=== PATIENT | male | born 1950 ===

== ENCOUNTER 2017-05-05 11:56 | Inpatient (IN) | payer MEDICARE, OTHER ==
[2017-05-05 16:38] VITALS: BMI 20.7
--- NOTE | 2017-05-05 18:10 | CP.PCM.HP ---
History of Present Illness - History of Present Illness History of Present Illness: this is a 67-year-old male with past medical history of prior CVA, 2 brain masses currently treated with chemotherapy status post right posterior parietal craniotomy in August 2016, renal mass, hypertension, hyperlipidemia presents today from [facility] after acute CVA. patient initially presented with left-sided weakness, aphasia, and left lateral gaze. in the emergency room shortly after, patient was able to look straight ahead and speak with me mild dysarthria, slurred speech and had some left-sided weakness with left lateral gaze. Patient medically acute rehabilitation for further rehabilitation needs. Review of systems per HPI all other systems reviewed negative by me Past medical history: Renal mass, 2 brain masses treated with chemotherapy, hypertension, hyperlipidemia Past surgical history: Right posterior parietal craniotomy at [facility] August 2016 Social history: unable to iterate whether he uses tobacco, alcohol or IV drug use. Family history: Unable to obtain at this time Medications as below Allergies NKDA Physical exam: vitals reviewed Constitutional- cooperative, awake, alert. Head- NCAT, PERRL Eye- PERRL, normal accommodation ENT- normal exam, MMM. Neck- normal inspection, supple, no JVD Respiratory- CTAB, no wheezes rales rhonchi Cardiovascular- RRR, +S1, +S2 no MRG GI/Abdominal- normal bowel sounds, soft, no mass, no hsm Skin- warm, dry Extremities Exam- normal capillary refill, normal inspection Neurological Exam- alert, left-sided weakness Psych- normal mood, normal affect labs reviewed from admission at [facility] Imaging studies from [facility]: CT head 05/02/2017: No acute intracranial abnormality. Status post right posterior parietal craniotomy. Cystic encephalomalacia in the right posterior paramedian parietal lobe, supple of remote insult. MRI recommended. CTA 05/02/2017: No evidence of internal carotid stenosis or intra-arterial thrombus MRI brain: acute or subacute brain infarction at the mid to posterior right MCA distribution with limited local mass effect and age-related neurogenic degenerative changes. Head MRI: Motion and revealed motion artifact which really distorted the examination and felt to be simulating severe arterial stenosis or occlusions involving nearly all major intracranial arteries as well as the bilateral internal carotid arteries. The severity of the interval changes are likely due to the extensive neurological findings is present to corroborate MRI findings. the studies were not apparent on initial CT findings. 67-year-old male with past medical history of prior CVA, 2 brain masses currently treated with chemotherapy status post right posterior parietal craniotomy in August 2016, renal mass, hypertension, hyperlipidemia presents today from [facility] after acute CVA. patient initially presented with left-sided weakness, aphasia, and left lateral gaze. in the emergency room shortly after, patient was able to look straight ahead and speak with me mild dysarthria, slurred speech and had some left-sided weakness wwith left lateral gaze. Patient medically acute rehabilitation for further rehabilitation needs. Acute CVA patient with left-sided weakness, history of brain mass with hemorrhage MRI at [facility] found acute or subacute brain infarction admitted to posterior right MCA distribution Patient neurologist was Dr. Lao at [facility] Continue Dilantin 100 mg every 8 hours continue aspirin 81 mg dailyExlinecontinue PT, OT, speech therapy. Physiatry consult appreciated History of renal mass Brain masses currently on chemotherapy continue current therapy hypertension continue diltiazem and losartan Possible focal seizures? Patient was started on Topamax HOLD Dilantin for interaction with patient's chemotherapy VTE prophylaxis heparin 500 units subcutaneous every 12 Present on Admission - Present on Admission Any Indicators Present on Admission: No Past Patient History - Past Medical History & Family History Past Medical History?: Yes - Past Social History Smoking Status: Never Smoked - CARDIAC Hx Hypertension: Yes - NEUROLOGICAL Hx Neurological Disorder: Yes Other/Comment: BRAIN TUMOR - RENAL Hx Chronic Kidney Disease: Yes (CA Kidney) - ENDOCRINE/METABOLIC Hx Diabetes Mellitus Type 2: Yes - HEMATOLOGICAL/ONCOLOGICAL Hx AIDS: No Hx Human Immunodeficiency Virus (HIV): No - MUSCULOSKELETAL/RHEUMATOLOGICAL Hx Falls: No - PSYCHIATRIC Hx Substance Use: No - SURGICAL HISTORY Hx Surgeries: Yes Other/Comment: right nephroectomy, BRAIN TUMOR REMOVAL - ANESTHESIA Hx Anesthesia: Yes Hx Anesthesia Reactions: No Meds Allergies/Adverse Reactions: Allergies Allergy/AdvReac Type Severity Reaction Status Date / Time No Known Allergies Allergy Verified 05/02/17 10:52 Results - Vital Signs Recent Vital Signs: Last Vital Signs Temp Pulse 67 05/05/17 16:36 Resp 20 05/05/17 16:36 BP Pulse Ox 99 05/05/17 16:36
[2017-05-05] MEDS: Phenytoin 100 mg/4 ml Oral Susp UD PO SCH (21:32)
[2017-05-06 05:51] LABS: HEMATOCRIT 43.5 % (35.0-51.0); MEAN CELL VOLUME 90.8 fl (80.0-94.0); MEAN CORPUSCULAR HEMOGLOBIN 30.6 pg (27.0-31.0); MEAN CORPUSCULAR HGB CONC 33.7 g/dL (33.0-37.0); RED CELL DISTRIBUTION WIDTH 19.5 % (11.5-14.5); WHITE BLOOD COUNT 4.2 K/uL (4.8-10.8)
[2017-05-06] MEDS: Phenytoin 100 mg/4 ml Oral Susp UD PO SCH (06:02)
[2017-05-06 06:53] LABS: ALB/GLOB RATIO 1.3 (1.0-2.1); ALKALINE PHOSPHATASE 71 U/L (38-126); ALT/SGPT 40 U/L (21-72); AST/SGOT 51 U/L (17-59); BILIRUBIN,TOTAL 0.8 mg/dl (0.2-1.3); BLOOD UREA NITROGEN 13 mg/dl (9-20); CALCIUM 9.6 mg/dL (8.4-10.2); CARBON DIOXIDE 24 mmol/L (22-30); CHLORIDE 96 mmol/L (98-107); GFR AFRICAN-AMERICAN > 60; GLUCOSE,RANDOM 103 mg/dL (75-110); POTASSIUM 4.5 MMOL/L (3.6-5.0); SODIUM 132 mmol/l (132-148); TOTAL PROTEIN 7.7 G/DL (6.3-8.2)
[2017-05-06] MEDS: SUNITINIB MALATE PO SCH (08:35)
[2017-05-06] MEDS: diltiaZEM 240 mg/24 Hours CD Cap PO SCH (08:36)
--- NOTE | 2017-05-06 15:15 | PCM.OPOC ---
Physiatry Overall Plan of Care - Overall Plan of Care Estimated Length of Stay in Weeks: 3 Rehab Impairment: Mobility, Gait, Cognition, Speech, Balance, Coordination Etiologic Diagnosis: Cerebrovascular Accident Rehab/Medical Prognosis: Fair - Anticipated Interventions Physical Therapy:: Yes Occupational Therapy:: Yes Speech Therapy:: Yes Recreational Therapy:: Yes - Therapy Goals Bed Mobility: Contact Guard Ambulation: Contact Guard Functional Positional Changes:: Contact Guard - Discharge Plan Discharge Destination: Home, Subacute
--- NOTE | 2017-05-06 15:17 | CP.PCM.CON ---
History of Present Illness - History of Present Illness History of Present Illness: Dr Smith PMR consultation on Jorge Jarrett, born 1950, who has been admitted to [facility] for acute inpatient rehabilitation following a right CVA with left HP. Level of function is complicated by left neglect. Review of Systems - Constitutional Constitutional: absent: Chills - EENT Nose/Mouth/Throat: absent: Nasal Congestion - Cardiovascular Cardiovascular: absent: Chest Pain - Respiratory Respiratory: absent: Dyspnea, Hemoptysis - Gastrointestinal Gastrointestinal: absent: Belching, Constipation - Musculoskeletal Musculoskeletal: absent: Arthralgias, Back Pain - Integumentary Integumentary: absent: Bleeding Lesions - Neurological Neurological: absent: Abnormal Movements - Psychiatric Psychiatric: absent: Anxiety Past Patient History - Past Medical History & Family History Past Medical History?: Yes - Past Social History Smoking Status: Never Smoked - CARDIAC Hx Hypertension: Yes - NEUROLOGICAL Hx Neurological Disorder: Yes Other/Comment: BRAIN TUMOR - RENAL Hx Chronic Kidney Disease: Yes (CA Kidney) - ENDOCRINE/METABOLIC Hx Diabetes Mellitus Type 2: Yes - HEMATOLOGICAL/ONCOLOGICAL Hx AIDS: No Hx Human Immunodeficiency Virus (HIV): No - MUSCULOSKELETAL/RHEUMATOLOGICAL Hx Falls: No - PSYCHIATRIC Hx Substance Use: No - SURGICAL HISTORY Hx Surgeries: Yes Other/Comment: right nephroectomy, BRAIN TUMOR REMOVAL - ANESTHESIA Hx Anesthesia: Yes Hx Anesthesia Reactions: No Meds Allergies/Adverse Reactions: Allergies Allergy/AdvReac Type Severity Reaction Status Date / Time No Known Allergies Allergy Verified 05/02/17 10:52 - Medications Medications: Current Medications Aspirin (Ecotrin) 81 mg PO DAILY [facility] Last Admin: 05/06/17 08:37 Dose: 81 mg Atorvastatin Calcium (Lipitor) 20 mg PO HS [facility] Last Admin: 05/05/17 21:11 Dose: 20 mg Diltiazem HCl (Cardizem Cd) 240 mg PO DAILY [facility] Last Admin: 05/06/17 08:36 Dose: 240 mg Famotidine (Pepcid) 20 mg PO BID [facility] Last Admin: 05/06/17 08:37 Dose: 20 mg Folic Acid (Folic Acid) 1 mg PO DAILY [facility] Last Admin: 05/06/17 08:36 Dose: 1 mg Heparin Sodium (Porcine) (Heparin) 5,000 units SC Q12 [facility] PRN Reason: Protocol Last Admin: 05/06/17 08:37 Dose: 5,000 units Home Med (Sunitinib Malate [Sutent]) 50 mg PO DAILY [facility] Last Admin: 05/06/17 08:35 Dose: 50 mg Losartan Potassium (Cozaar) 50 mg PO DAILY [facility] Last Admin: 05/06/17 08:37 Dose: 50 mg Phenytoin (Dilantin) 100 mg PO Q8 [facility] Last Admin: 05/06/17 06:02 Dose: 100 mg Topiramate (Topamax) 50 mg PO BID [facility] Last Admin: 05/06/17 08:37 Dose: 50 mg Physical Exam - Constitutional Appears: Non-toxic, No Acute Distress - Head Exam Head Exam: ATRAUMATIC, NORMAL INSPECTION - Eye Exam Eye Exam: EOMI - ENT Exam ENT Exam: Mucous Membranes Moist - Respiratory Exam Respiratory Exam: NORMAL BREATHING PATTERN - Cardiovascular Exam Cardiovascular Exam: REGULAR RHYTHM - GI/Abdominal Exam GI & Abdominal Exam: Normal Bowel Sounds - Extremities Exam Extremities exam: Negative for: calf tenderness, joint swelling, pedal edema - Neurological Exam Neurological exam: Alert Results - Vital Signs Recent Vital Signs: Last Vital Signs Temp 96.9 F L 05/06/17 08:18 Pulse 68 05/06/17 08:37 Resp 19 05/06/17 08:18 BP 156/96 H 05/06/17 08:37 Pulse Ox 95 05/06/17 08:18 - Labs Result Diagrams: 05/06/17 05:20 05/06/17 05:20 Labs: Laboratory Results - last 24 hr 05/06/17 05/06/17 05/06/17 05:20 05:20 05:20 WBC 4.2 L RBC 4.79 Hgb 14.7 Hct 43.5 MCV 90.8 D MCH 30.6 MCHC 33.7 RDW 19.5 H Plt Count 109 L D Sodium 132 Potassium 4.5 Chloride 96 L Carbon Dioxide 24 Anion Gap 17 BUN 13 Creatinine 1.3 Est GFR ( Amer) > 60 Est GFR (Non-Af Amer) 55 Random Glucose 103 Calcium 9.6 Total Bilirubin 0.8 AST 51 ALT 40 Alkaline Phosphatase 71 Total Protein 7.7 Albumin 4.4 Globulin 3.3 Albumin/Globulin Ratio 1.3 Phenytoin 13.0 Assessment & Plan - Assessment and Plan (Free Text) Assessment: Patient has left HP and right CVA PT/OT to continue to help increase functional independence Team conference for d/c planning Pain: controlled Vascular: no evidence of DVT GI: No evidence of constipation or diarrhea Patient is an excellent acute rehabilitation candidate and will have focused speech, PT, OT and recreational therapy to help facilitate a safe and appropriate d/c plan impairment code: 01.1
[2017-05-07 04:07] LABS: RBC URINE 2 /hpf (0-3); URINE BACTERIA RARE (<OCC); URINE BILIRUBIN NEGATIVE (NEGATIVE); URINE BLOOD NEGATIVE (NEGATIVE); URINE COLOR YELLOW (YELLOW); URINE GLUCOSE (UA) NEG (Normal); URINE KETONE TRACE mg/dL (NEGATIVE); URINE LEUKOCYTE ESTERASE NEG Leu/uL (Negative); URINE PROTEIN 30 mg/dL (NEGATIVE); WBC URINE < 1 /hpf (0-5)
[2017-05-07] MEDS: SUNITINIB MALATE PO SCH (09:23)
[2017-05-07] MEDS: diltiaZEM 240 mg/24 Hours CD Cap PO SCH (09:24)
[2017-05-08] MEDS: SUNITINIB MALATE PO SCH (08:15)
[2017-05-08] MEDS: diltiaZEM 240 mg/24 Hours CD Cap PO SCH (08:15)
--- NOTE | 2017-05-08 19:56 | CP.PCM.CON ---
History of Present Illness - History of Present Illness History of Present Illness: this is a 67-year-old male with past medical history of prior CVA, 2 brain masses currently treated with chemotherapy status post right posterior parietal craniotomy in August 2016, renal mass, hypertension, hyperlipidemia presents today from [facility] after acute CVA. patient initially presented with left-sided weakness, aphasia, and left lateral gaze. in the emergency room shortly after, patient was able to look straight ahead and speak with me mild dysarthria, slurred speech and had some left-sided weakness with left lateral gaze. Patient medically acute rehabilitation for further rehabilitation needs. He developed his spell while Ironing clothes. He fell to the floor and lost control and had left siided weakness. Past medical history: Renal mass, 2 brain masses treated with chemotherapy, hypertension, hyperlipidemia Past surgical history: Right posterior parietal craniotomy at [facility] August 2016 Social history: unable to iterate whether he uses tobacco, alcohol or IV drug use. Family history: Unable to obtain at this time Medications as below Allergies NKDA CT head 05/02/2017: No acute intracranial abnormality. Status post right posterior parietal craniotomy. Cystic encephalomalacia in the right posterior paramedian parietal lobe, supple of remote insult. MRI recommended. CTA 05/02/2017: No evidence of internal carotid stenosis or intra-arterial thrombus MRI brain: acute or subacute brain infarction at the mid to posterior right MCA distribution with limited local mass effect and age-related neurogenic degenerative changes. Head MRI: Motion and revealed motion artifact which really distorted the examination and felt to be simulating severe arterial stenosis or occlusions involving nearly all major intracranial arteries as well as the bilateral internal carotid arteries. The severity of the interval changes are likely due to the extensive neurological findings is present to corroborate MRI findings. the studies were not apparent on initial CT findings. 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 Patient was started on Topamax as Topamax controls Focal Seizures. Patient has no Glaucoma, Kidney stones or Gall Bladder Stone. He has no allergy to Topamax. D/C Dilantin for interaction with patient's chemotherapy VTE prophylaxis heparin 500 units subcutaneous every 12 Present on Admission - Present on Admission Any Indicators Present on Admission: No Past Patient History - Past Medical History & Family History Past Medical History?: Yes - Past Social History Smoking Status: Never Smoked - CARDIAC Hx Hypertension: Yes - NEUROLOGICAL Hx Neurological Disorder: Yes Other/Comment: BRAIN TUMOR - RENAL Hx Chronic Kidney Disease: Yes (CA Kidney) - ENDOCRINE/METABOLIC Hx Diabetes Mellitus Type 2: Yes - HEMATOLOGICAL/ONCOLOGICAL Hx AIDS: No Hx Human Immunodeficiency Virus (HIV): No - MUSCULOSKELETAL/RHEUMATOLOGICAL Hx Falls: No - PSYCHIATRIC Hx Substance Use: No - SURGICAL HISTORY Hx Surgeries: Yes Other/Comment: right nephroectomy, BRAIN TUMOR REMOVAL - ANESTHESIA Hx Anesthesia: Yes Hx Anesthesia Reactions: No Meds Allergies/Adverse Reactions: Allergies Allergy/AdvReac Type Severity Reaction Status Date / Time No Known Allergies Allergy Verified 05/02/17 10:52 Past Patient History - Past Medical History & Family History Past Medical History?: Yes - Past Social History Smoking Status: Never Smoked - CARDIAC Hx Hypertension: Yes - NEUROLOGICAL Hx Neurological Disorder: Yes Other/Comment: BRAIN TUMOR - RENAL Hx Chronic Kidney Disease: Yes (CA Kidney) - ENDOCRINE/METABOLIC Hx Diabetes Mellitus Type 2: Yes - HEMATOLOGICAL/ONCOLOGICAL Hx Cancer: Yes - MUSCULOSKELETAL/RHEUMATOLOGICAL Hx Falls: No - PSYCHIATRIC Hx Substance Use: No - SURGICAL HISTORY Hx Surgeries: Yes Other/Comment: right nephroectomy, BRAIN TUMOR REMOVAL - ANESTHESIA Hx Anesthesia: Yes Hx Anesthesia Reactions: No Meds Allergies/Adverse Reactions: Allergies Allergy/AdvReac Type Severity Reaction Status Date / Time No Known Allergies Allergy Verified 05/02/17 10:52 - Medications Medications: Current Medications Aspirin (Ecotrin) 81 mg PO DAILY [facility] Last Admin: 05/08/17 08:15 Dose: 81 mg Atorvastatin Calcium (Lipitor) 20 mg PO HS [facility] Last Admin: 05/07/17 21:04 Dose: 20 mg Diltiazem HCl (Cardizem Cd) 240 mg PO DAILY [facility] Last Admin: 05/08/17 08:15 Dose: 240 mg Famotidine (Pepcid) 20 mg PO BID [facility] Last Admin: 05/08/17 16:52 Dose: 20 mg Folic Acid (Folic Acid) 1 mg PO DAILY [facility] Last Admin: 05/08/17 08:16 Dose: 1 mg Heparin Sodium (Porcine) (Heparin) 5,000 units SC Q12 [facility] PRN Reason: Protocol Last Admin: 05/08/17 08:16 Dose: 5,000 units Home Med (Sunitinib Malate [Sutent]) 50 mg PO DAILY [facility] Last Admin: 05/08/17 08:15 Dose: 50 mg Lorazepam (Ativan) 1 mg IM Q4H PRN PRN Reason: Agitation Losartan Potassium (Cozaar) 100 mg PO DAILY [facility] Last Admin: 05/08/17 08:16 Dose: 100 mg Topiramate (Topamax) 50 mg PO BID [facility] Last Admin: 05/08/17 16:52 Dose: 50 mg Physical Exam - Neurological Exam Additional comments: Mental Status: Awake, Alert, Oriented X 3, Confused, mild Dysarthria Memory is hard to assess due to his confusion. Cranial Nerves II to XII: Left Homonymous Hemianopsia Mild left Facial Palsy, UMNL type tongue is central Motor: Normal tone on the right side Hypertonic spasticity on the Left side Power: weak on the Right side 5-/5 Weak on the left side 4/5 with a pronator drift Toes are down going on the right Side, up going on the left side. DTR 0/4 bilaterally. Sensory: Intact pain cerebellar; hard to assess due to lack of cooperation and confusion. Stature and Gait: not tested, reported to be difficult and unsteady Results - Vital Signs Recent Vital Signs: Last Vital Signs Temp 97.5 F L 05/08/17 08:14 Pulse 64 05/08/17 08:16 Resp 18 05/08/17 08:14 BP 157/89 H 05/08/17 08:16 Pulse Ox 97 05/08/17 08:14 - Labs Result Diagrams: 05/06/17 05:20 05/06/17 05:20 Assessment & Plan (1) Brain mass Status: Acute (2) CVA (cerebral vascular accident) Status: Acute (3) Focal seizure Assessment and Plan: Left Focal Seizures continue Topamax 50 mg Q 12 Hrs until 05/12/2017 then upgrade to 75 mg Q 12 hrs x1 week, then Upgrade to 100 mg Q12 hrs X 2 years after the last seizure. May raise gradually up to 200 mg Q 12 hrs. Provide Rectal Diastat 10 mg TID PRN Seizures Status: Acute (4) Headache Assessment and Plan: Not active currently Status: Acute (5) Intracranial bleed Status: Acute (6) Intracranial mass Status: Chronic (7) Left-sided weakness Status: Acute (8) Prophylactic measure Status: Acute
[2017-05-08] MEDS: Ergocalciferol 50,000 Intl Units Cap PO SCH (21:36)
[2017-05-09] MEDS ORDERED: POLYETHYLENE GLYCOL 3350 17 GM/Dose PACKET PO PRN (05:28)
[2017-05-09] MEDS: diltiaZEM 240 mg/24 Hours CD Cap PO SCH (09:27)
[2017-05-09] MEDS: SUNITINIB MALATE PO SCH (09:28)
--- NOTE | 2017-05-09 13:37 | CP.PCM.PN ---
Subjective - Date & Time of Evaluation Date of Evaluation: 05/09/17 Time of Evaluation: 10:00 - Subjective Subjective: Patient seen and examined at bedside. He continues to have slurred speech and left sided weakness with lateral gaze. He states that he is feeling ok alright. Patient is confused and unable to communicate further during interview. Objective - Vital Signs/Intake and Output Vital Signs (last 24 hours): Temp Pulse Resp BP Pulse Ox 97.0 F L 68 22 159/109 H 96 05/09/17 08:46 05/09/17 08:46 05/09/17 08:46 05/09/17 11:00 05/09/17 08:46 - Medications Medications: Current Medications Aspirin (Ecotrin) 81 mg PO DAILY [facility] Last Admin: 05/09/17 09:26 Dose: 81 mg Atorvastatin Calcium (Lipitor) 20 mg PO HS [facility] Last Admin: 05/08/17 21:35 Dose: 20 mg Calcium Carbonate (Oscal) 500 mg PO BIDWM [facility] Last Admin: 05/09/17 09:29 Dose: 500 mg Diltiazem HCl (Cardizem Cd) 240 mg PO DAILY [facility] Last Admin: 05/09/17 09:27 Dose: 240 mg Ergocalciferol (Drisdol 50,000 Intl Units Cap) 1 cap PO Q7D [facility] Last Admin: 05/08/17 21:36 Dose: 1 cap Famotidine (Pepcid) 20 mg PO BID [facility] Last Admin: 05/09/17 09:28 Dose: 20 mg Folic Acid (Folic Acid) 1 mg PO DAILY [facility] Last Admin: 05/09/17 09:29 Dose: 1 mg Heparin Sodium (Porcine) (Heparin) 5,000 units SC Q12 [facility] PRN Reason: Protocol Last Admin: 05/09/17 09:31 Dose: 5,000 units Home Med (Sunitinib Malate [Sutent]) 50 mg PO DAILY [facility] Last Admin: 05/09/17 09:28 Dose: 50 mg Hydralazine HCl (Apresoline) 10 mg PO TID [facility] Lorazepam (Ativan) 1 mg IM Q4H PRN PRN Reason: Agitation Losartan Potassium (Cozaar) 100 mg PO DAILY [facility] Last Admin: 05/09/17 09:28 Dose: 100 mg Polyethylene Glycol (Miralax) 17 gm PO DAILY PRN PRN Reason: Constipation Last Admin: 05/09/17 09:26 Dose: 17 gm Topiramate (Topamax) 50 mg PO BID [facility] Last Admin: 05/09/17 09:29 Dose: 50 mg - Labs Labs: 05/06/17 05:20 05/06/17 05:20 - Additional Findings Additional findings: Physical exam: Constitutional- awake and alert, although confused Head- NCAT, PERRL Eye- PERRL, normal accommodation ENT- normal exam, MMM. Neck- normal inspection, supple, no JVD Respiratory- CTAB, no wheezes rales rhonchi Cardiovascular- RRR, +S1, +S2 no MRG GI/Abdominal- normal bowel sounds, soft, no mass, no hsm Skin- warm, dry Extremities Exam- normal capillary refill, left sided weakness Neurological Exam- alert, improving Psych- normal mood, normal affect Assessment and Plan - Assessment and Plan (Free Text) Plan: 67-year-old male with past medical history of prior CVA, 2 brain masses currently treated with chemotherapy status post right posterior parietal craniotomy in August 2016, renal mass, hypertension, hyperlipidemia presents today from [facility] after acute CVA. patient initially presented with left-sided weakness, aphasia, and left lateral gaze. in the emergency room shortly after, patient was able to look straight ahead and speak with me mild dysarthria, slurred speech and had some left-sided weakness wwith left lateral gaze. Patient medically acute rehabilitation for further rehabilitation needs. -Acute CVA patient with left-sided weakness, history of brain mass with hemorrhage MRI at [facility] found acute or subacute brain infarction admitted to posterior right MCA distribution Patient neurologist was Dr. Lao at [facility] Continue Dilantin 100 mg every 8 hours continue aspirin 81 mg dailyExlinecontinue PT, OT, speech therapy. Physiatry consult appreciated -continue 1:1 safety precautions -History of renal mass Brain masses currently on chemotherapy continue current therapy -hypertension continue diltiazem and losartan -Possible focal seizures? Patient was started on Topamax HOLD Dilantin for interaction with patient's chemotherapy VTE prophylaxis heparin 500 units subcutaneous every 12 hours
[2017-05-09] MEDS ORDERED: Bisacodyl 5mg EC Tab PO ONE (15:10)
--- NOTE | 2017-05-09 16:14 | CP.PCM.CON ---
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 patient initially presented with left- sided weakness, aphasia, and left lateral gaze. in the emergency room shortly after, patient was able to look straight ahead and speak with me mild dysarthria , slurred speech and had some left-sided weakness with left lateral gaze. Patient admitted for further rehabilitation needs. as per staff pt has been increasingly agitated particularly at night time, also observed by them trying to fetch things on the wall with possible visual hallucinations on evaluation pt without eye contact refusing to communicate with web content writer, refusing to answer questions presenting with sad mood and affect and unable to further assess mental status will attempt to revaluate pt in presence of as staff reported he does communicate with her Past Patient History - Past Medical History & Family History Past Medical History?: Yes - Past Social History Smoking Status: Never Smoked - CARDIAC Hx Hypertension: Yes - NEUROLOGICAL Hx Neurological Disorder: Yes Other/Comment: BRAIN TUMOR - RENAL Hx Chronic Kidney Disease: Yes (CA Kidney) - ENDOCRINE/METABOLIC Hx Diabetes Mellitus Type 2: Yes - HEMATOLOGICAL/ONCOLOGICAL Hx Cancer: Yes - MUSCULOSKELETAL/RHEUMATOLOGICAL Hx Falls: No - PSYCHIATRIC Hx Substance Use: No - SURGICAL HISTORY Hx Surgeries: Yes Other/Comment: right nephroectomy, BRAIN TUMOR REMOVAL - ANESTHESIA Hx Anesthesia: Yes Hx Anesthesia Reactions: No Meds Allergies/Adverse Reactions: Allergies Allergy/AdvReac Type Severity Reaction Status Date / Time No Known Allergies Allergy Verified 05/02/17 10:52 - Medications Medications: Current Medications Aspirin (Ecotrin) 81 mg PO DAILY [facility] Last Admin: 05/09/17 09:26 Dose: 81 mg Atorvastatin Calcium (Lipitor) 20 mg PO HS [facility] Last Admin: 05/08/17 21:35 Dose: 20 mg Calcium Carbonate (Oscal) 500 mg PO BIDWM [facility] Last Admin: 05/09/17 09:29 Dose: 500 mg Diltiazem HCl (Cardizem Cd) 240 mg PO DAILY [facility] Last Admin: 05/09/17 09:27 Dose: 240 mg Ergocalciferol (Drisdol 50,000 Intl Units Cap) 1 cap PO Q7D [facility] Last Admin: 05/08/17 21:36 Dose: 1 cap Famotidine (Pepcid) 20 mg PO BID [facility] Last Admin: 05/09/17 09:28 Dose: 20 mg Folic Acid (Folic Acid) 1 mg PO DAILY [facility] Last Admin: 05/09/17 09:29 Dose: 1 mg Heparin Sodium (Porcine) (Heparin) 5,000 units SC Q12 [facility] PRN Reason: Protocol Last Admin: 05/09/17 09:31 Dose: 5,000 units Home Med (Sunitinib Malate [Sutent]) 50 mg PO DAILY [facility] Last Admin: 05/09/17 09:28 Dose: 50 mg Hydralazine HCl (Apresoline) 25 mg PO Q8H [facility] Lorazepam (Ativan) 1 mg IM Q4H PRN PRN Reason: Agitation Losartan Potassium (Cozaar) 100 mg PO DAILY [facility] Last Admin: 05/09/17 09:28 Dose: 100 mg Polyethylene Glycol (Miralax) 17 gm PO DAILY PRN PRN Reason: Constipation Last Admin: 05/09/17 09:26 Dose: 17 gm Topiramate (Topamax) 50 mg PO BID [facility] Last Admin: 05/09/17 09:29 Dose: 50 mg Physical Exam - Constitutional Appears: Older Than Stated Age - Psychiatric Exam Psychiatric exam: Depressed Additional comments: pt on evaluation seen on a wheel chair , depressed mood and affect no eye contact, refusing to communicate . limited movement, unable to further asess mental status Results - Vital Signs Recent Vital Signs: Last Vital Signs Temp 97.0 F L 05/09/17 08:46 Pulse 68 05/09/17 08:46 Resp 22 05/09/17 08:46 BP 164/104 H 05/09/17 15:55 Pulse Ox 96 05/09/17 08:46 - Labs Result Diagrams: 05/06/17 05:20 05/06/17 05:20 Assessment & Plan - Assessment and Plan (Free Text) Assessment: post stroke depression continue 1:1 obsevation for safety start zoloft 12.5 mg for depression start seroquel 25mg q12 prn for agitation will follow up on pt - Date & Time Date: 05/09/17 Time: 16:14
--- NOTE | 2017-05-09 17:08 | CP.PCM.PN ---
Subjective - Date & Time of Evaluation Date of Evaluation: 05/09/17 Time of Evaluation: 17:07 - Subjective Subjective: Patient seen in room severe left neglect denies sob/cp tries to cooperate denies pain continue with therapies has team conf tomorrow for d/c planning Objective - Vital Signs/Intake and Output Vital Signs (last 24 hours): Temp Pulse Resp BP Pulse Ox 97.0 F L 68 22 164/104 H 96 05/09/17 08:46 05/09/17 08:46 05/09/17 08:46 05/09/17 15:55 05/09/17 08:46 - Medications Medications: Current Medications Aspirin (Ecotrin) 81 mg PO DAILY [facility] Last Admin: 05/09/17 09:26 Dose: 81 mg Atorvastatin Calcium (Lipitor) 20 mg PO HS [facility] Last Admin: 05/08/17 21:35 Dose: 20 mg Calcium Carbonate (Oscal) 500 mg PO BIDWM [facility] Last Admin: 05/09/17 16:54 Dose: 500 mg Diltiazem HCl (Cardizem Cd) 240 mg PO DAILY [facility] Last Admin: 05/09/17 09:27 Dose: 240 mg Ergocalciferol (Drisdol 50,000 Intl Units Cap) 1 cap PO Q7D [facility] Last Admin: 05/08/17 21:36 Dose: 1 cap Famotidine (Pepcid) 20 mg PO BID [facility] Last Admin: 05/09/17 16:54 Dose: 20 mg Folic Acid (Folic Acid) 1 mg PO DAILY [facility] Last Admin: 05/09/17 09:29 Dose: 1 mg Heparin Sodium (Porcine) (Heparin) 5,000 units SC Q12 [facility] PRN Reason: Protocol Last Admin: 05/09/17 09:31 Dose: 5,000 units Home Med (Sunitinib Malate [Sutent]) 50 mg PO DAILY [facility] Last Admin: 05/09/17 09:28 Dose: 50 mg Hydralazine HCl (Apresoline) 25 mg PO Q8H [facility] Lorazepam (Ativan) 1 mg IM Q4H PRN PRN Reason: Agitation Losartan Potassium (Cozaar) 100 mg PO DAILY [facility] Last Admin: 05/09/17 09:28 Dose: 100 mg Polyethylene Glycol (Miralax) 17 gm PO DAILY PRN PRN Reason: Constipation Last Admin: 05/09/17 09:26 Dose: 17 gm Quetiapine Fumarate (Seroquel) 12.5 mg PO BID PRN PRN Reason: Agitation Sertraline HCl (Zoloft) 12.5 mg PO DAILY [facility] Topiramate (Topamax) 50 mg PO BID [facility] Last Admin: 05/09/17 16:55 Dose: 50 mg - Labs Labs: 05/06/17 05:20 05/06/17 05:20
--- NOTE | 2017-05-10 00:59 | CP.PCM.PN ---
Subjective - Date & Time of Evaluation Date of Evaluation: 05/09/17 Time of Evaluation: 20:25 - Subjective Subjective: Still suffering from mild dysarthria, no seizures, he is interactive, walking with help. Topamax needs to be increased after 1 week of starting to 75 mg Q 12 hrs X1 week and then 100 mg Q 12 hrs, which might be enough for his condition. Objective - Vital Signs/Intake and Output Vital Signs (last 24 hours): Temp Pulse Resp BP Pulse Ox 97.9 F 79 18 157/95 H 99 05/09/17 20:38 05/09/17 22:19 05/09/17 20:38 05/09/17 22:19 05/09/17 20:38 - Medications Medications: Current Medications Aspirin (Ecotrin) 81 mg PO DAILY [facility] Last Admin: 05/09/17 09:26 Dose: 81 mg Atorvastatin Calcium (Lipitor) 20 mg PO HS [facility] [place] Last Admin: 05/09/17 22:18 Dose: 20 mg Calcium Carbonate (Oscal) 500 mg PO BIDWM [facility] Last Admin: 05/09/17 16:54 Dose: 500 mg Diltiazem HCl (Cardizem Cd) 240 mg PO DAILY [facility] Last Admin: 05/09/17 09:27 Dose: 240 mg Ergocalciferol (Drisdol 50,000 Intl Units Cap) 1 cap PO Q7D [facility] Last Admin: 05/08/17 21:36 Dose: 1 cap Famotidine (Pepcid) 20 mg PO BID [facility] [place] Last Admin: 05/09/17 16:54 Dose: 20 mg Folic Acid (Folic Acid) 1 mg PO DAILY [facility] Last Admin: 05/09/17 09:29 Dose: 1 mg Heparin Sodium (Porcine) (Heparin) 5,000 units SC Q12 [facility] PRN Reason: Protocol Last Admin: 05/09/17 22:20 Dose: 5,000 units Home Med (Sunitinib Malate [Sutent]) 50 mg PO DAILY [facility] Last Admin: 05/09/17 09:28 Dose: 50 mg Hydralazine HCl (Apresoline) 25 mg PO Q8H [facility] Last Admin: 05/09/17 22:19 Dose: 25 mg Lorazepam (Ativan) 1 mg IM Q4H PRN PRN Reason: Agitation Losartan Potassium (Cozaar) 100 mg PO DAILY [facility] Last Admin: 05/09/17 09:28 Dose: 100 mg Polyethylene Glycol (Miralax) 17 gm PO DAILY PRN PRN Reason: Constipation Last Admin: 05/09/17 09:26 Dose: 17 gm Quetiapine Fumarate (Seroquel) 12.5 mg PO BID PRN PRN Reason: Agitation Sertraline HCl (Zoloft) 12.5 mg PO DAILY [facility] Topiramate (Topamax) 50 mg PO BID [facility] Last Admin: 05/09/17 16:55 Dose: 50 mg - Labs Labs: 05/06/17 05:20 05/06/17 05:20 Assessment and Plan (1) Brain mass Status: Acute (2) CVA (cerebral vascular accident) Status: Acute (3) Focal seizure Status: Acute (4) Headache Status: Acute (5) Intracranial bleed Status: Acute (6) Intracranial mass Status: Chronic (7) Left-sided weakness Status: Acute (8) Prophylactic measure Status: Acute
[2017-05-10] MEDS: SUNITINIB MALATE PO SCH (08:24)
[2017-05-10] MEDS: diltiaZEM 240 mg/24 Hours CD Cap PO SCH (08:25)
--- NOTE | 2017-05-10 13:22 | PSY.TMCNF ---
Nursing - Vital Signs Vital Signs (Last 8 hours): Vital Signs 05/10/17 05/10/17 05/10/17 06:06 08:24 08:25 Temperature Pulse Rate 64 Respiratory Rate Blood Pressure 141/91 H 141/96 H 141/96 H O2 Sat by Pulse Oximetry 05/10/17 05/10/17 09:10 11:07 Temperature 98.3 F 98.3 F Pulse Rate 72 72 Respiratory 19 19 Rate Blood Pressure 142/96 H 142/96 H O2 Sat by Pulse 97 Oximetry Pain: 0 - Precautions: Precautions: Fall Prevention - Medications/Other Issues Comment: on 1:1 for safety and agitation. - Consults Comment: Dr. Smith, Dr. Barton - Toileting Toileting: Moderate Assistance - Bladder Management Bladder Pattern: Normal Voiding Method: Toilet Bladder Management: Supervision Frequency of Accidents: >5, pt had periods of inc first few days. Has been fully continent since yesterday and today. - Bowel Management Bowel Pattern: Constipated Bowel Management: Supervision Frequency of Accidents: 0 - Transfers Transfers: Minimal Assistance - ADL's ADL's: Moderate Assistance - Patient/Family Teaching Comments: CARE POST CVA AND SAFETY PRECAUTIONS - Goals/Time Frame Comments: PER MULTIDISCIPLINARY CARE PLAN GOALS - Provider Provider: PRESLEY RODRIGUEZN RN CRRN Physical Therapy - Bed Mobility Bed Mobility: Contact Guard, Maximum Assistance Comment: fluctuates --> motorically patient with strength and able to mobilize with CG; however, due to cognitive impairments patient can require max A to initiate, execute and terminate; status depends on his mood/awareness/attention at given moment - Transfers Wheelchair to Mat: Verbal Cues, Minimal Assistance, Moderate Assistance Sit to Stand: Minimal Assistance Comment: SPT with min/mod A; manaual cues to facilitate transfer - Ambulation Comment: deferred today; on evaluation last week able to ambualte with RW with CG/min A for walker negotiation. decreased attention to left side with frequent collisions and poor recognition of collisions, items, objects or people on left side* - Stair Negotiation Stairs: Level of Assistance: Not Tested - Standing Balance Static Stand: Minimal Assistance - Pain Pain (assessed during therapy session): 0 Comment: denies pain - Insight/Carryover Insight/Carryover: Poor - Patient/Family Education Comment: therapy schedule, POC, goals, mobility, safety - Assessment/Plan Assessment: Pt requires max verbal cues to participate in recreation therapy sessions. Pt presents with L side neglect and inattention to stimuli on the L side. Pt currently has 1:1 aide for safety and supervision. Pt reported that he enjoys playing cards; however, when presented with task, pt presented no interest. Pt would benefit from recreation therapy sessions to improve command following and L side visual awareness. - Goals Timeframe: 7 days Goals: bed mobility with CS. transfers with CG. gait x 200 feet with RW without collisions with CG. training 4 6inch steps with single rail with min A - Provider Therapist: Reyna Benton PT, DPT License Number: [id number] Occupational Therapy - Arousal/Attention/Orientation Patient Orientation: Person - ADL/IADL Self Feeding: Supervision, Verbal Cues, Set-up Help Grooming: Verbal Cues, Set-up Help, Minimal Assistance Dressing-Upper Extremity: Verbal Cues, Set-up Help, Minimal Assistance, Moderate Assistance Dressing-Lower Extremity: Verbal Cues, Set-up Help, Moderate Assistance - Sitting Balance Static Sitting: Supervision Dynamic Sitting: Minimal Assistance Comment: seated at edge of bed - Transfers Wheelchair to Bed Transfers: Minimal Assistance, Moderate Assistance Toilet Transfers: Verbal Cues, Set-up Help, Minimal Assistance, Moderate Assistance - Upper Extremity Status Right Upper Extremity Comment: AROM is WFLs Left Upper Extremity Comment: AROM is WFLs - Pain Pain (assessed during therapy session): 0 Comment: denies pain - Insight/Carryover Insight/Carryover: Poor - Patient/Family Education Comment: therapy schedule, POC, goals, mobility, safety - Assessment/Plan Assessment: Pt requires max verbal cues to participate in recreation therapy sessions. Pt presents with L side neglect and inattention to stimuli on the L side. Pt currently has 1:1 aide for safety and supervision. Pt reported that he enjoys playing cards; however, when presented with task, pt presented no interest. Pt would benefit from recreation therapy sessions to improve command following and L side visual awareness. - Goals Timeframe: 7 days Goals: bed mobility with CS. transfers with CG. gait x 200 feet with RW without collisions with CG. training 4 6inch steps with single rail with min A - Provider Therapist: CHANCE Gonzales/Natalie License Number: [id number] Speech Therapy - Consult Information Patient on Program: Yes Medical Diagnosis: CVA Treatment Diagnosis: moderate-severe cognitive deficits - Assessment Problem Solving Impairment: Severe Memory Impairment: Severe - Plan Assessment: Pt requires max verbal cues to participate in recreation therapy sessions. Pt presents with L side neglect and inattention to stimuli on the L side. Pt currently has 1:1 aide for safety and supervision. Pt reported that he enjoys playing cards; however, when presented with task, pt presented no interest. Pt would benefit from recreation therapy sessions to improve command following and L side visual awareness. - Provider Therapist: Osiris Childress License Number: [id number] Recreational Therapy - Participation Participation: Monitors His/Her Own Leisure Time - Attendance Attendance: Daily - Activities Leisure Activities: Television - Socialization Level of Socialization: Initiates/interacts with caregivers but not with peer, Isolate by choice, Responds freely, but does not initiate, Requires 1:1 guidance to respond, Minimal initiation of interaction to request basic needs - Assessment Assessment/Plan: Pt requires max verbal cues to participate in recreation therapy sessions. Pt presents with L side neglect and inattention to stimuli on the L side. Pt currently has 1:1 aide for safety and supervision. Pt reported that he enjoys playing cards; however, when presented with task, pt presented no interest. Pt would benefit from recreation therapy sessions to improve command following and L side visual awareness. Problems Currently Limiting Participation: L side visual neglect, decrease safety awareness, decrease orientation, decrease insight of deficits, decrease leisure awareness level, decrease motor planning, decrease direction following Goals and Time Frame: Pt will be encouraged to participate in 1:1 and group recreation therapy sessions 3-5x week to improve L side visual scanning and L side visual awareness, direction following, attention to task, and arousal level. - Provider Therapist: Gabriella Newman, DIRECTOR CLINICAL INFORMATION SERVICES #[id number] Nutrition - Current Diet Current Diet/ Supplement/ Feedings: Heart healthy ensure plus 8 ounces 1 per day - Appetite Percent Meal Consumed: 75-100% - Comments Comments: CARE POST CVA AND SAFETY PRECAUTIONS - Assessment/Goals/Time Frame Assessment/Goals/Time Frame: on 1:1 for safety and agitation. - Provider Provider: Marielle Dyer RD Case Management - Discharge Plan Discharge Plan: Home with significant other/family Rehabilitation Plan - Treatment Plan Treatment Plan: Physical Therapy, Occupational Therapy, Speech, Dietary, Patient /Family Education - Discharge Plan Discharge to: Home
--- NOTE | 2017-05-10 13:49 | CP.PCM.PN ---
Subjective - Date & Time of Evaluation Date of Evaluation: 05/10/17 Time of Evaluation: 13:48 - Subjective Subjective: Patient seen in room present she required evp and chief operating officer he has severe left neglect which is affecting function and progress continue current care Objective - Vital Signs/Intake and Output Vital Signs (last 24 hours): Temp Pulse Resp BP Pulse Ox 98.3 F 72 19 158/105 H 97 05/10/17 11:07 05/10/17 11:07 05/10/17 11:07 05/10/17 13:33 05/10/17 09:10 - Medications Medications: Current Medications Aspirin (Ecotrin) 81 mg PO DAILY [facility] Last Admin: 05/10/17 08:25 Dose: 81 mg Atorvastatin Calcium (Lipitor) 20 mg PO HS [facility] Last Admin: 05/09/17 22:18 Dose: 20 mg Calcium Carbonate (Oscal) 500 mg PO BIDWM [facility] Last Admin: 05/10/17 08:24 Dose: 500 mg Diltiazem HCl (Cardizem Cd) 240 mg PO DAILY [facility] Last Admin: 05/10/17 08:25 Dose: 240 mg Ergocalciferol (Drisdol 50,000 Intl Units Cap) 1 cap PO Q7D [facility] Last Admin: 05/08/17 21:36 Dose: 1 cap Famotidine (Pepcid) 20 mg PO BID [facility] Last Admin: 05/10/17 08:24 Dose: 20 mg Folic Acid (Folic Acid) 1 mg PO DAILY [facility] Last Admin: 05/10/17 08:24 Dose: 1 mg Heparin Sodium (Porcine) (Heparin) 5,000 units SC Q12 [facility] PRN Reason: Protocol Last Admin: 05/10/17 08:25 Dose: 5,000 units Home Med (Sunitinib Malate [Sutent]) 50 mg PO DAILY [facility] Last Admin: 05/10/17 08:24 Dose: 50 mg Hydralazine HCl (Apresoline) 25 mg PO Q8H [facility] Last Admin: 05/10/17 13:33 Dose: 25 mg Lorazepam (Ativan) 1 mg IM Q4H PRN PRN Reason: Agitation Losartan Potassium (Cozaar) 100 mg PO DAILY [facility] Last Admin: 05/10/17 08:24 Dose: 100 mg Polyethylene Glycol (Miralax) 17 gm PO DAILY PRN PRN Reason: Constipation Last Admin: 05/09/17 09:26 Dose: 17 gm Quetiapine Fumarate (Seroquel) 12.5 mg PO BID PRN PRN Reason: Agitation Sertraline HCl (Zoloft) 12.5 mg PO DAILY [facility] Last Admin: 05/10/17 08:23 Dose: 12.5 mg Topiramate (Topamax) 50 mg PO BID [facility] Last Admin: 05/10/17 08:24 Dose: 50 mg - Labs Labs: 05/06/17 05:20 05/06/17 05:20
--- NOTE | 2017-05-11 01:06 | CP.PCM.PN ---
Subjective - Date & Time of Evaluation Date of Evaluation: 05/10/17 Time of Evaluation: 21:15 - Subjective Subjective: Left Homonymous Hemianopsia, left side neglect, left side hemiparesis, right Brain CVA. He is responding to his Rehab gradually. Objective - Vital Signs/Intake and Output Vital Signs (last 24 hours): Temp Pulse Resp BP Pulse Ox 97.9 F 75 20 168/95 H 99 05/10/17 22:00 05/10/17 22:00 05/10/17 22:00 05/10/17 22:00 05/10/17 22:00 - Medications Medications: Current Medications Aspirin (Ecotrin) 81 mg PO DAILY [facility] Last Admin: 05/10/17 08:25 Dose: 81 mg Atorvastatin Calcium (Lipitor) 20 mg PO HS [facility] Last Admin: 05/10/17 21:27 Dose: 20 mg Calcium Carbonate (Oscal) 500 mg PO BIDWM [facility] Last Admin: 05/10/17 16:58 Dose: 500 mg Diltiazem HCl (Cardizem Cd) 240 mg PO DAILY [facility] Last Admin: 05/10/17 08:25 Dose: 240 mg Ergocalciferol (Drisdol 50,000 Intl Units Cap) 1 cap PO Q7D [facility] Last Admin: 05/08/17 21:36 Dose: 1 cap Famotidine (Pepcid) 20 mg PO BID [facility] Last Admin: 05/10/17 16:58 Dose: 20 mg Folic Acid (Folic Acid) 1 mg PO DAILY [facility] Last Admin: 05/10/17 08:24 Dose: 1 mg Heparin Sodium (Porcine) (Heparin) 5,000 units SC Q12 [facility] PRN Reason: Protocol Last Admin: 05/10/17 21:27 Dose: 5,000 units Home Med (Sunitinib Malate [Sutent]) 50 mg PO DAILY [facility] Last Admin: 05/10/17 08:24 Dose: 50 mg Hydralazine HCl (Apresoline) 25 mg PO Q8H [facility] Last Admin: 05/10/17 21:27 Dose: 25 mg Lorazepam (Ativan) 1 mg IM Q4H PRN PRN Reason: Agitation Losartan Potassium (Cozaar) 100 mg PO DAILY [facility] Last Admin: 05/10/17 08:24 Dose: 100 mg Polyethylene Glycol (Miralax) 17 gm PO DAILY PRN PRN Reason: Constipation Last Admin: 05/09/17 09:26 Dose: 17 gm Quetiapine Fumarate (Seroquel) 12.5 mg PO BID PRN PRN Reason: Agitation Sertraline HCl (Zoloft) 12.5 mg PO DAILY [facility] Last Admin: 05/10/17 08:23 Dose: 12.5 mg Topiramate (Topamax) 50 mg PO BID [facility] Last Admin: 05/10/17 16:58 Dose: 50 mg - Labs Labs: 05/06/17 05:20 05/06/17 05:20 Assessment and Plan (1) Brain mass Status: Acute (2) CVA (cerebral vascular accident) Status: Acute (3) Focal seizure Status: Acute (4) Headache Status: Acute (5) Intracranial bleed Status: Acute (6) Intracranial mass Status: Chronic (7) Left-sided weakness Status: Acute (8) Prophylactic measure Status: Acute
[2017-05-11] MEDS: diltiaZEM 240 mg/24 Hours CD Cap PO SCH (08:58)
[2017-05-11] MEDS: SUNITINIB MALATE PO SCH (09:00)
--- NOTE | 2017-05-11 16:18 | CP.PCM.PN ---
Subjective - Date & Time of Evaluation Date of Evaluation: 05/11/17 Time of Evaluation: 16:30 - Subjective Subjective: Patient seen and examined. Sitting in chair in NAD.Answering questions, cooperative, following commands. With left side weakness and neglect and left homonymous hemianopia Hemodynamically stabnle, afebrile Objective - Vital Signs/Intake and Output Vital Signs (last 24 hours): Temp Pulse Resp BP Pulse Ox 97.4 F L 84 22 139/90 98 05/11/17 08:51 05/11/17 14:52 05/11/17 08:51 05/11/17 14:52 05/11/17 08:51 - Medications Medications: Current Medications Aspirin (Ecotrin) 81 mg PO DAILY [facility] Last Admin: 05/11/17 08:59 Dose: 81 mg Atorvastatin Calcium (Lipitor) 20 mg PO HS [facility] Last Admin: 05/10/17 21:27 Dose: 20 mg Calcium Carbonate (Oscal) 500 mg PO BIDWM [facility] Last Admin: 05/11/17 08:59 Dose: 500 mg Diltiazem HCl (Cardizem Cd) 240 mg PO DAILY [facility] Last Admin: 05/11/17 08:58 Dose: 240 mg Ergocalciferol (Drisdol 50,000 Intl Units Cap) 1 cap PO Q7D [facility] Last Admin: 05/08/17 21:36 Dose: 1 cap Famotidine (Pepcid) 20 mg PO BID [facility] Last Admin: 05/11/17 08:59 Dose: 20 mg Folic Acid (Folic Acid) 1 mg PO DAILY [facility] Last Admin: 05/11/17 14:52 Dose: 1 mg Heparin Sodium (Porcine) (Heparin) 5,000 units SC Q12 [facility] PRN Reason: Protocol Last Admin: 05/11/17 08:59 Dose: 5,000 units Home Med (Sunitinib Malate [Sutent]) 50 mg PO DAILY [facility] Last Admin: 05/11/17 09:00 Dose: 50 mg Hydralazine HCl (Apresoline) 25 mg PO Q8H [facility] Last Admin: 05/11/17 14:52 Dose: 25 mg Lorazepam (Ativan) 1 mg IM Q4H PRN PRN Reason: Agitation Losartan Potassium (Cozaar) 100 mg PO DAILY [facility] Last Admin: 05/11/17 08:58 Dose: 100 mg Polyethylene Glycol (Miralax) 17 gm PO DAILY PRN PRN Reason: Constipation Last Admin: 05/09/17 09:26 Dose: 17 gm Quetiapine Fumarate (Seroquel) 12.5 mg PO BID PRN PRN Reason: Agitation Sertraline HCl (Zoloft) 12.5 mg PO DAILY [facility] Last Admin: 05/11/17 09:00 Dose: 12.5 mg Topiramate (Topamax) 50 mg PO BID [facility] Last Admin: 05/11/17 09:00 Dose: 50 mg - Labs Labs: 05/06/17 05:20 05/06/17 05:20 - Constitutional Appears: Non-toxic, No Acute Distress - Head Exam Head Exam: ATRAUMATIC, NORMOCEPHALIC - Eye Exam Eye Exam: Normal appearance, PERRL - ENT Exam ENT Exam: Mucous Membranes Moist, Normal Exam - Neck Exam Neck Exam: Full ROM, Normal Inspection - Respiratory Exam Respiratory Exam: Clear to Ausculation Bilateral, NORMAL BREATHING PATTERN. absent: Rales, Rhonchi, Wheezes - Cardiovascular Exam Cardiovascular Exam: REGULAR RHYTHM, RRR, +S1, +S2. absent: JVD - GI/Abdominal Exam GI & Abdominal Exam: Soft, Normal Bowel Sounds. absent: Distended, Guarding, Tenderness, Rebound - Rectal Exam Rectal Exam: Deferred - Extremities Exam Extremities Exam: Full ROM, Normal Capillary Refill, Normal Inspection. absent : Calf Tenderness, Pedal Edema - Back Exam Back Exam: NORMAL INSPECTION - Neurological Exam Neurological Exam: Alert, Awake, CN II-XII Intact. absent: Oriented x3 Additional comments: left side weakness and left neglect left homonymous hemianopia - Psychiatric Exam Psychiatric exam: Flat Affect - Skin Skin Exam: Dry, Normal Color, Warm Assessment and Plan - Assessment and Plan (Free Text) Assessment: 67-year-old male with past medical history of prior CVA, 2 brain masses currently treated with chemotherapy status post right posterior parietal craniotomy in August 2016, renal mass, hypertension, hyperlipidemia presents today from [facility] after acute CVA. Patient initially presented with left-sided weakness, aphasia, and left lateral gaze. In the emergency room shortly after, patient was able to look straight ahead and speak with me mild dysarthria, slurred speech and had some left-sided weakness with left lateral gaze. Patient transferred to acute rehabilitation for further rehabilitation needs. 1. Acute CVA patient with left-sided weakness, left neglect and left homonymous hemiapnopia MRI at [facility] found acute or subacute brain infarction to posterior right MCA distribution Patient neurologist was Dr. Ewing following on topomax 50 mg po Q12 for seizure prevention for now. Will increase dose to 100 mg po Q12 in 1 week continue aspirin 81 mg daily, Statin and Bp control continue PT, OT, speech therapy. 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
--- NOTE | 2017-05-12 00:14 | CP.PCM.PN ---
Subjective - Date & Time of Evaluation Date of Evaluation: 05/11/17 Time of Evaluation: 20:20 - Subjective Subjective: He is OOB to Chair, responsive, left side weakness, left side hemineglect. Improving on Rehab. Objective - Vital Signs/Intake and Output Vital Signs (last 24 hours): Temp Pulse Resp BP Pulse Ox 97.6 F 66 20 173/99 H 98 05/11/17 19:46 05/11/17 21:01 05/11/17 19:46 05/11/17 21:01 05/11/17 19:46 - Medications Medications: Current Medications Aspirin (Ecotrin) 81 mg PO DAILY [facility] Last Admin: 05/11/17 08:59 Dose: 81 mg Atorvastatin Calcium (Lipitor) 20 mg PO HS [facility] Last Admin: 05/11/17 21:01 Dose: 20 mg Calcium Carbonate (Oscal) 500 mg PO BIDWM [facility] Last Admin: 05/11/17 17:37 Dose: 500 mg Diltiazem HCl (Cardizem Cd) 240 mg PO DAILY [facility] Last Admin: 05/11/17 08:58 Dose: 240 mg Ergocalciferol (Drisdol 50,000 Intl Units Cap) 1 cap PO Q7D [facility] Last Admin: 05/08/17 21:36 Dose: 1 cap Famotidine (Pepcid) 20 mg PO BID [facility] Last Admin: 05/11/17 17:37 Dose: 20 mg Folic Acid (Folic Acid) 1 mg PO DAILY [facility] Last Admin: 05/11/17 14:52 Dose: 1 mg Heparin Sodium (Porcine) (Heparin) 5,000 units SC Q12 [facility] PRN Reason: Protocol Last Admin: 05/11/17 20:54 Dose: 5,000 units Home Med (Sunitinib Malate [Sutent]) 50 mg PO DAILY [facility] Last Admin: 05/11/17 09:00 Dose: 50 mg Hydralazine HCl (Apresoline) 25 mg PO Q8H [facility] Last Admin: 05/11/17 21:01 Dose: 25 mg Lorazepam (Ativan) 1 mg IM Q4H PRN PRN Reason: Agitation Losartan Potassium (Cozaar) 100 mg PO DAILY [facility] Last Admin: 05/11/17 08:58 Dose: 100 mg Polyethylene Glycol (Miralax) 17 gm PO DAILY PRN PRN Reason: Constipation Last Admin: 05/09/17 09:26 Dose: 17 gm Quetiapine Fumarate (Seroquel) 12.5 mg PO BID PRN PRN Reason: Agitation Sertraline HCl (Zoloft) 12.5 mg PO DAILY [facility] Last Admin: 05/11/17 09:00 Dose: 12.5 mg Topiramate (Topamax) 50 mg PO BID [facility] Last Admin: 05/11/17 17:37 Dose: 50 mg - Labs Labs: 05/06/17 05:20 05/06/17 05:20 Assessment and Plan (1) Brain mass Status: Acute (2) CVA (cerebral vascular accident) Status: Acute (3) Focal seizure Status: Acute (4) Headache Status: Acute (5) Intracranial bleed Status: Acute (6) Intracranial mass Status: Chronic (7) Left-sided weakness Status: Acute (8) Prophylactic measure Status: Acute
[2017-05-12] MEDS: diltiaZEM 240 mg/24 Hours CD Cap PO SCH (08:47)
[2017-05-12] MEDS: SUNITINIB MALATE PO SCH (08:47)
--- NOTE | 2017-05-12 15:31 | CP.PCM.PN ---
Subjective - Date & Time of Evaluation Date of Evaluation: 05/12/17 Time of Evaluation: 15:29 - Subjective Subjective: He is receiving Rehab and is reported to be doing better. Left sided weakness and left sided neglect is remarkable. Left Homonymous Hemianopsia. Objective - Vital Signs/Intake and Output Vital Signs (last 24 hours): Temp Pulse Resp BP Pulse Ox 97.9 F 75 20 159/107 H 98 05/12/17 10:00 05/12/17 13:21 05/12/17 10:00 05/12/17 13:21 05/12/17 10:00 - Medications Medications: Current Medications Aspirin (Ecotrin) 81 mg PO DAILY [facility] Last Admin: 05/12/17 08:47 Dose: 81 mg Atorvastatin Calcium (Lipitor) 20 mg PO HS [facility] Last Admin: 05/11/17 21:01 Dose: 20 mg Calcium Carbonate (Oscal) 500 mg PO BIDWM [facility] Last Admin: 05/12/17 08:47 Dose: 500 mg Diltiazem HCl (Cardizem Cd) 240 mg PO DAILY [facility] Last Admin: 05/12/17 08:47 Dose: 240 mg Ergocalciferol (Drisdol 50,000 Intl Units Cap) 1 cap PO Q7D [facility] Last Admin: 05/08/17 21:36 Dose: 1 cap Famotidine (Pepcid) 20 mg PO BID [facility] Last Admin: 05/12/17 08:47 Dose: 20 mg Folic Acid (Folic Acid) 1 mg PO DAILY [facility] Last Admin: 05/12/17 08:47 Dose: 1 mg Heparin Sodium (Porcine) (Heparin) 5,000 units SC Q12 [facility] PRN Reason: Protocol Last Admin: 05/12/17 08:47 Dose: 5,000 units Home Med (Sunitinib Malate [Sutent]) 50 mg PO DAILY [facility] Last Admin: 05/12/17 08:47 Dose: 50 mg Hydralazine HCl (Apresoline) 25 mg PO Q8H [facility] Last Admin: 05/12/17 13:21 Dose: 25 mg Lorazepam (Ativan) 1 mg IM Q4H PRN PRN Reason: Agitation Losartan Potassium (Cozaar) 100 mg PO DAILY [facility] Last Admin: 05/12/17 08:48 Dose: 100 mg Polyethylene Glycol (Miralax) 17 gm PO DAILY PRN PRN Reason: Constipation Last Admin: 05/09/17 09:26 Dose: 17 gm Quetiapine Fumarate (Seroquel) 12.5 mg PO BID PRN PRN Reason: Agitation Sertraline HCl (Zoloft) 12.5 mg PO DAILY [facility] Last Admin: 05/12/17 08:48 Dose: 12.5 mg Topiramate (Topamax) 50 mg PO BID [facility] Last Admin: 05/12/17 08:47 Dose: 50 mg - Labs Labs: 05/06/17 05:20 05/06/17 05:20 Assessment and Plan (1) Brain mass Status: Acute (2) CVA (cerebral vascular accident) Status: Acute (3) Focal seizure Status: Acute (4) Headache Status: Acute (5) Intracranial bleed Status: Acute (6) Intracranial mass Status: Chronic (7) Left-sided weakness Status: Acute (8) Prophylactic measure Status: Acute
--- NOTE | 2017-05-12 18:08 | CP.PCM.PN ---
Subjective - Date & Time of Evaluation Date of Evaluation: 05/12/17 Time of Evaluation: 18:07 - Subjective Subjective: Patient seen had a little behavioral issue with nursing this morning, but now more calm and doing ok denies pain still with severe left neglect continue acute inpatient rehabilitation Objective - Vital Signs/Intake and Output Vital Signs (last 24 hours): Temp Pulse Resp BP Pulse Ox 97.9 F 75 20 159/107 H 98 05/12/17 10:00 05/12/17 13:21 05/12/17 10:00 05/12/17 13:21 05/12/17 10:00 - Medications Medications: Current Medications Aspirin (Ecotrin) 81 mg PO DAILY [facility] Last Admin: 05/12/17 08:47 Dose: 81 mg Atorvastatin Calcium (Lipitor) 20 mg PO HS [facility] Last Admin: 05/11/17 21:01 Dose: 20 mg Calcium Carbonate (Oscal) 500 mg PO BIDWM [facility] Last Admin: 05/12/17 17:36 Dose: 500 mg Diltiazem HCl (Cardizem Cd) 240 mg PO DAILY [facility] Last Admin: 05/12/17 08:47 Dose: 240 mg Ergocalciferol (Drisdol 50,000 Intl Units Cap) 1 cap PO Q7D [facility] Last Admin: 05/08/17 21:36 Dose: 1 cap Famotidine (Pepcid) 20 mg PO BID [facility] Last Admin: 05/12/17 17:36 Dose: 20 mg Folic Acid (Folic Acid) 1 mg PO DAILY [facility] Last Admin: 05/12/17 08:47 Dose: 1 mg Heparin Sodium (Porcine) (Heparin) 5,000 units SC Q12 [facility] PRN Reason: Protocol Last Admin: 05/12/17 08:47 Dose: 5,000 units Home Med (Sunitinib Malate [Sutent]) 50 mg PO DAILY [facility] Last Admin: 05/12/17 08:47 Dose: 50 mg Hydralazine HCl (Apresoline) 25 mg PO Q8H [facility] Last Admin: 05/12/17 13:21 Dose: 25 mg Lorazepam (Ativan) 1 mg IM Q4H PRN PRN Reason: Agitation Losartan Potassium (Cozaar) 100 mg PO DAILY [facility] Last Admin: 05/12/17 08:48 Dose: 100 mg Polyethylene Glycol (Miralax) 17 gm PO DAILY PRN PRN Reason: Constipation Last Admin: 05/09/17 09:26 Dose: 17 gm Quetiapine Fumarate (Seroquel) 12.5 mg PO BID PRN PRN Reason: Agitation Sertraline HCl (Zoloft) 12.5 mg PO DAILY [facility] Last Admin: 05/12/17 08:48 Dose: 12.5 mg Topiramate (Topamax) 50 mg PO BID [facility] Last Admin: 05/12/17 17:36 Dose: 50 mg - Labs Labs: 05/06/17 05:20 05/06/17 05:20
[2017-05-13] MEDS: SUNITINIB MALATE PO SCH (08:06)
[2017-05-13] MEDS: diltiaZEM 240 mg/24 Hours CD Cap PO SCH (08:07)
--- NOTE | 2017-05-13 12:49 | CP.PCM.PN ---
Subjective - Date & Time of Evaluation Date of Evaluation: 05/03/17 Time of Evaluation: 11:30 - Subjective Subjective: Patient seen and examined. Sitting in chair in NAD.Answering all questions, cooperative, following commands. With left side weakness and neglect and left homonymous hemianopia Hemodynamically stable, afebrile Objective - Vital Signs/Intake and Output Vital Signs (last 24 hours): Temp Pulse Resp BP Pulse Ox 97.0 F L 67 18 140/80 100 05/13/17 08:05 05/13/17 08:08 05/13/17 08:05 05/13/17 08:08 05/13/17 08:05 - Medications Medications: Current Medications Aspirin (Ecotrin) 81 mg PO DAILY [facility] Last Admin: 05/13/17 08:07 Dose: 81 mg Atorvastatin Calcium (Lipitor) 20 mg PO HS [facility] Last Admin: 05/12/17 22:10 Dose: 20 mg Calcium Carbonate (Oscal) 500 mg PO BIDWM [facility] Last Admin: 05/13/17 08:06 Dose: 500 mg Diltiazem HCl (Cardizem Cd) 240 mg PO DAILY [facility] Last Admin: 05/13/17 08:07 Dose: 240 mg Ergocalciferol (Drisdol 50,000 Intl Units Cap) 1 cap PO Q7D [facility] Last Admin: 05/08/17 21:36 Dose: 1 cap Famotidine (Pepcid) 20 mg PO BID [facility] Last Admin: 05/13/17 08:07 Dose: 20 mg Folic Acid (Folic Acid) 1 mg PO DAILY [facility] Last Admin: 05/13/17 08:08 Dose: 1 mg Heparin Sodium (Porcine) (Heparin) 5,000 units SC Q12 [facility] PRN Reason: Protocol Last Admin: 05/13/17 08:07 Dose: 5,000 units Home Med (Sunitinib Malate [Sutent]) 50 mg PO DAILY [facility] Last Admin: 05/13/17 08:06 Dose: 50 mg Hydralazine HCl (Apresoline) 25 mg PO Q8H [facility] Last Admin: 05/13/17 07:00 Dose: 25 mg Lorazepam (Ativan) 1 mg IM Q4H PRN PRN Reason: Agitation Losartan Potassium (Cozaar) 100 mg PO DAILY [facility] Last Admin: 05/13/17 08:08 Dose: 100 mg Polyethylene Glycol (Miralax) 17 gm PO DAILY PRN PRN Reason: Constipation Last Admin: 05/09/17 09:26 Dose: 17 gm Quetiapine Fumarate (Seroquel) 12.5 mg PO BID PRN PRN Reason: Agitation Sertraline HCl (Zoloft) 12.5 mg PO DAILY [facility] Last Admin: 05/13/17 08:06 Dose: 12.5 mg Topiramate (Topamax) 75 mg PO BID [facility] - Labs Labs: 05/06/17 05:20 05/06/17 05:20 - Constitutional Appears: Non-toxic, No Acute Distress - Head Exam Head Exam: ATRAUMATIC, NORMOCEPHALIC - Eye Exam Eye Exam: EOMI, Normal appearance, PERRL Pupil Exam: NORMAL ACCOMODATION - ENT Exam ENT Exam: Mucous Membranes Moist, Normal Exam - Neck Exam Neck Exam: Full ROM, Normal Inspection - Respiratory Exam Respiratory Exam: Clear to Ausculation Bilateral, NORMAL BREATHING PATTERN. absent: Rales, Rhonchi, Wheezes - Cardiovascular Exam Cardiovascular Exam: REGULAR RHYTHM, RRR, +S1, +S2. absent: JVD - GI/Abdominal Exam GI & Abdominal Exam: Soft, Hyperactive Bowel Sounds. absent: Distended, Guarding, Tenderness, Rebound - Rectal Exam Rectal Exam: Deferred - Extremities Exam Extremities Exam: Full ROM, Normal Capillary Refill, Normal Inspection, Pedal Edema - Back Exam Back Exam: NORMAL INSPECTION - Neurological Exam Neurological Exam: Alert, Awake Additional comments: left side weakness, left hemineglect - Skin Skin Exam: Dry, Normal Color, Warm Assessment and Plan - Assessment and Plan (Free Text) Assessment: 67-year-old male with past medical history of prior CVA, 2 brain masses currently treated with chemotherapy status post right posterior parietal craniotomy in August 2016, renal mass, hypertension, hyperlipidemia presents today from [facility] after acute CVA. Patient initially presented with left-sided weakness, aphasia, and left lateral gaze. In the emergency room shortly after, patient was able to look straight ahead and speak with me mild dysarthria, slurred speech and had some left-sided weakness with left lateral gaze. Patient transferred to acute rehabilitation for further rehabilitation needs. 1. Acute CVA patient with left-sided weakness, left neglect and left homonymous hemiapnopia MRI at [facility] found acute or subacute brain infarction to posterior right MCA distribution Patient neurologist was Dr. Ewing following on topomax 50 mg po Q12 for seizure prevention for now. Will increase dose to 100 mg po Q12 in 1 week continue aspirin 81 mg daily, Statin and Bp control continue PT, OT, speech therapy. 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 Increase dose to 75 mg po BId today 6.VTE prophylaxis heparin 500 units subcutaneous every 12 hours
--- NOTE | 2017-05-13 14:57 | CP.PCM.PN ---
Subjective - Date & Time of Evaluation Date of Evaluation: 05/13/17 Time of Evaluation: 12:00 - Subjective Subjective: no acute complaints at present Objective - Vital Signs/Intake and Output Vital Signs (last 24 hours): Temp Pulse Resp BP Pulse Ox 97.0 F L 78 18 163/107 H 100 05/13/17 08:05 05/13/17 13:16 05/13/17 08:05 05/13/17 13:16 05/13/17 08:05 - Medications Medications: Current Medications Aspirin (Ecotrin) 81 mg PO DAILY [facility] Last Admin: 05/13/17 08:07 Dose: 81 mg Atorvastatin Calcium (Lipitor) 20 mg PO HS [facility] Last Admin: 05/12/17 22:10 Dose: 20 mg Calcium Carbonate (Oscal) 500 mg PO BIDWM [facility] Last Admin: 05/13/17 08:06 Dose: 500 mg Diltiazem HCl (Cardizem Cd) 240 mg PO DAILY [facility] Last Admin: 05/13/17 08:07 Dose: 240 mg Ergocalciferol (Drisdol 50,000 Intl Units Cap) 1 cap PO Q7D [facility] Last Admin: 05/08/17 21:36 Dose: 1 cap Famotidine (Pepcid) 20 mg PO BID [facility] Last Admin: 05/13/17 08:07 Dose: 20 mg Folic Acid (Folic Acid) 1 mg PO DAILY [facility] Last Admin: 05/13/17 08:08 Dose: 1 mg Heparin Sodium (Porcine) (Heparin) 5,000 units SC Q12 [facility] PRN Reason: Protocol Last Admin: 05/13/17 08:07 Dose: 5,000 units Home Med (Sunitinib Malate [Sutent]) 50 mg PO DAILY [facility] Last Admin: 05/13/17 08:06 Dose: 50 mg Hydralazine HCl (Apresoline) 25 mg PO Q8H [facility] Last Admin: 05/13/17 13:16 Dose: 25 mg Lorazepam (Ativan) 1 mg IM Q4H PRN PRN Reason: Agitation Losartan Potassium (Cozaar) 100 mg PO DAILY [facility] Last Admin: 05/13/17 08:08 Dose: 100 mg Polyethylene Glycol (Miralax) 17 gm PO DAILY PRN PRN Reason: Constipation Last Admin: 05/09/17 09:26 Dose: 17 gm Quetiapine Fumarate (Seroquel) 12.5 mg PO BID PRN PRN Reason: Agitation Sertraline HCl (Zoloft) 12.5 mg PO DAILY [facility] Last Admin: 05/13/17 08:06 Dose: 12.5 mg Topiramate (Topamax) 75 mg PO BID [facility] - Labs Labs: 05/06/17 05:20 05/06/17 05:20 - Head Exam Head Exam: ATRAUMATIC, NORMAL INSPECTION, NORMOCEPHALIC - Eye Exam Eye Exam: EOMI, Normal appearance, PERRL Pupil Exam: NORMAL ACCOMODATION - ENT Exam ENT Exam: Mucous Membranes Moist, Normal Exam - Neck Exam Neck Exam: Normal Inspection - Respiratory Exam Respiratory Exam: NORMAL BREATHING PATTERN - Cardiovascular Exam Cardiovascular Exam: REGULAR RHYTHM - GI/Abdominal Exam GI & Abdominal Exam: Soft, Normal Bowel Sounds - Exam External exam: NORMAL EXTERNAL EXAM - Extremities Exam Extremities Exam: Full ROM, Normal Capillary Refill - Back Exam Back Exam: NORMAL INSPECTION - Neurological Exam Neurological Exam: Alert, Awake Neuro motor strength exam: Left Upper Extremity: 3, Right Upper Extremity: 3, Left Lower Extremity: 3, Right Lower Extremity: 3 - Psychiatric Exam Psychiatric exam: Normal Affect, Normal Mood - Skin Skin Exam: Dry, Intact Assessment and Plan (1) Brain mass Status: Acute (2) CVA (cerebral vascular accident) Status: Acute (3) Focal seizure Status: Acute (4) Intracranial bleed Status: Acute (5) Left-sided weakness Assessment & Plan: plan for physical, occupational, rec therapy covering for Dr. 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
--- NOTE | 2017-05-13 23:57 | CP.PCM.PN ---
Subjective - Date & Time of Evaluation Date of Evaluation: 05/13/17 Time of Evaluation: 20:00 - Subjective Subjective: Improving on Rehab and able to sit OOB to chair and to walk with help. He disagreed with the nurse briefly this morning, then things were straightened up. He is satisfied, compliant. Objective - Vital Signs/Intake and Output Vital Signs (last 24 hours): Temp Pulse Resp BP Pulse Ox 98.1 F 71 20 169/106 H 98 05/13/17 20:25 05/13/17 21:25 05/13/17 20:25 05/13/17 21:25 05/13/17 20:25 - Medications Medications: Current Medications Aspirin (Ecotrin) 81 mg PO DAILY [facility] Last Admin: 05/13/17 08:07 Dose: 81 mg Atorvastatin Calcium (Lipitor) 20 mg PO HS [facility] Last Admin: 05/13/17 21:25 Dose: 20 mg Calcium Carbonate (Oscal) 500 mg PO BIDWM [facility] Last Admin: 05/13/17 17:08 Dose: 500 mg Diltiazem HCl (Cardizem Cd) 240 mg PO DAILY [facility] Last Admin: 05/13/17 08:07 Dose: 240 mg Ergocalciferol (Drisdol 50,000 Intl Units Cap) 1 cap PO Q7D [facility] Last Admin: 05/08/17 21:36 Dose: 1 cap Famotidine (Pepcid) 20 mg PO BID [facility] Last Admin: 05/13/17 17:07 Dose: 20 mg Folic Acid (Folic Acid) 1 mg PO DAILY [facility] Last Admin: 05/13/17 08:08 Dose: 1 mg Heparin Sodium (Porcine) (Heparin) 5,000 units SC Q12 [facility] PRN Reason: Protocol Last Admin: 05/13/17 21:26 Dose: 5,000 units Home Med (Sunitinib Malate [Sutent]) 50 mg PO DAILY [facility] Last Admin: 05/13/17 08:06 Dose: 50 mg Hydralazine HCl (Apresoline) 25 mg PO Q8H [facility] Last Admin: 05/13/17 21:25 Dose: 25 mg Lorazepam (Ativan) 1 mg IM Q4H PRN PRN Reason: Agitation Losartan Potassium (Cozaar) 100 mg PO DAILY [facility] Last Admin: 05/13/17 08:08 Dose: 100 mg Polyethylene Glycol (Miralax) 17 gm PO DAILY PRN PRN Reason: Constipation Last Admin: 05/09/17 09:26 Dose: 17 gm Quetiapine Fumarate (Seroquel) 12.5 mg PO BID PRN PRN Reason: Agitation Sertraline HCl (Zoloft) 12.5 mg PO DAILY [facility] Last Admin: 05/13/17 08:06 Dose: 12.5 mg Topiramate (Topamax) 75 mg PO BID [facility] Last Admin: 05/13/17 17:07 Dose: 75 mg - Labs Labs: 05/06/17 05:20 05/06/17 05:20 Assessment and Plan (1) Brain mass Status: Acute (2) CVA (cerebral vascular accident) Status: Acute (3) Focal seizure Status: Acute (4) Headache Status: Acute (5) Intracranial bleed Status: Acute (6) Intracranial mass Status: Chronic (7) Left-sided weakness Status: Acute (8) Prophylactic measure Status: Acute
[2017-05-14] MEDS: SUNITINIB MALATE PO SCH (08:20)
[2017-05-14] MEDS: diltiaZEM 240 mg/24 Hours CD Cap PO SCH (08:23)
--- NOTE | 2017-05-14 23:44 | PN ---
PHYSIATRY PROGRESS NOTE SUBJECTIVE: The patient is a 67-year-old male admitted for acute inpatient rehab program and no acute complaints noted at present. PHYSICAL EXAMINATION: VITAL SIGNS: Stable. NECK: Supple. CHEST: Symmetrical. HEART: Sounds S1, S2. ABDOMEN: Area is benign. EXTREMITIES: No clubbing, cyanosis or edema. IMPRESSION: Right middle cerebral artery stroke, ICD code of , history of hypertension, renal mass, gait difficulty, status post right posterior parietal craniotomy. PLAN: Is for physical therapy, occupational therapy, recreational therapy, speech therapy, for range of motion, strengthening, transfers, ambulation, and gait training. Dr. Howard covering for Dr. Smith. Dev Howard MD
--- NOTE | 2017-05-14 23:57 | CP.PCM.PN ---
Subjective - Date & Time of Evaluation Date of Evaluation: 05/14/17 Time of Evaluation: 20:00 - Subjective Subjective: Improving steadily on Rehab, walking with help to the bathroom and also to the shower. Left hemiparesis. Left side neglect. Objective - Vital Signs/Intake and Output Vital Signs (last 24 hours): Temp Pulse Resp BP Pulse Ox 98.3 F 64 20 155/90 H 96 05/14/17 21:00 05/14/17 21:08 05/14/17 21:00 05/14/17 21:08 05/14/17 21:00 - Medications Medications: Current Medications Aspirin (Ecotrin) 81 mg PO DAILY [facility] Last Admin: 05/14/17 08:20 Dose: 81 mg Atorvastatin Calcium (Lipitor) 20 mg PO HS [facility] Last Admin: 05/14/17 21:07 Dose: 20 mg Calcium Carbonate (Oscal) 500 mg PO BIDWM [facility] Last Admin: 05/14/17 17:48 Dose: 500 mg Diltiazem HCl (Cardizem Cd) 240 mg PO DAILY [facility] Last Admin: 05/14/17 08:23 Dose: 240 mg Ergocalciferol (Drisdol 50,000 Intl Units Cap) 1 cap PO Q7D [facility] Last Admin: 05/08/17 21:36 Dose: 1 cap Famotidine (Pepcid) 20 mg PO BID [facility] Last Admin: 05/14/17 17:48 Dose: 20 mg Folic Acid (Folic Acid) 1 mg PO DAILY [facility] Last Admin: 05/14/17 08:23 Dose: 1 mg Heparin Sodium (Porcine) (Heparin) 5,000 units SC Q12 [facility] PRN Reason: Protocol Last Admin: 05/14/17 20:18 Dose: 5,000 units Home Med (Sunitinib Malate [Sutent]) 50 mg PO DAILY [facility] Last Admin: 05/14/17 08:20 Dose: 50 mg Hydralazine HCl (Apresoline) 25 mg PO Q8H [facility] Last Admin: 05/14/17 21:08 Dose: 25 mg Lorazepam (Ativan) 1 mg IM Q4H PRN PRN Reason: Agitation Losartan Potassium (Cozaar) 100 mg PO DAILY [facility] Last Admin: 05/14/17 08:21 Dose: 100 mg Polyethylene Glycol (Miralax) 17 gm PO DAILY PRN PRN Reason: Constipation Last Admin: 05/09/17 09:26 Dose: 17 gm Quetiapine Fumarate (Seroquel) 12.5 mg PO BID PRN PRN Reason: Agitation Sertraline HCl (Zoloft) 12.5 mg PO DAILY [facility] Last Admin: 05/14/17 08:22 Dose: 12.5 mg Topiramate (Topamax) 75 mg PO BID [facility] Last Admin: 05/14/17 17:48 Dose: 75 mg - Labs Labs: 05/06/17 05:20 05/06/17 05:20 Assessment and Plan (1) Brain mass Status: Acute (2) CVA (cerebral vascular accident) Status: Acute (3) Focal seizure Status: Acute (4) Headache Status: Acute (5) Intracranial bleed Status: Acute (6) Intracranial mass Status: Chronic (7) Left-sided weakness Status: Acute (8) Prophylactic measure Status: Acute
[2017-05-15] MEDS: SUNITINIB MALATE PO SCH (09:25)
[2017-05-15] MEDS: diltiaZEM 240 mg/24 Hours CD Cap PO SCH (09:27)
[2017-05-15] MEDS: Ergocalciferol 50,000 Intl Units Cap PO SCH (21:02)
--- NOTE | 2017-05-15 21:04 | CP.PCM.PN ---
Subjective - Date & Time of Evaluation Date of Evaluation: 05/15/17 Time of Evaluation: 21:02 - Subjective Subjective: He is eating well, cooperative, receiving Rehab, walking around to the Bathroom and to the Shower with help. His left side weakness has significantly improved, now his left side power is 4+/5 He has much less left side neglect, still has left homonymous hemianopsia. He is delirious, sometimes oriented X 3 and sometimes disoriented. His speech is non fluent, non coherent. Objective - Vital Signs/Intake and Output Vital Signs (last 24 hours): Temp Pulse Resp BP Pulse Ox 97.5 F L 77 19 165/83 H 99 05/15/17 10:00 05/15/17 13:47 05/15/17 10:00 05/15/17 13:47 05/15/17 10:00 - Medications Medications: Current Medications Aspirin (Ecotrin) 81 mg PO DAILY [facility] Last Admin: 05/15/17 09:41 Dose: 81 mg Atorvastatin Calcium (Lipitor) 20 mg PO HS [facility] Last Admin: 05/14/17 21:07 Dose: 20 mg Calcium Carbonate (Oscal) 500 mg PO BIDWM [facility] Last Admin: 05/15/17 17:23 Dose: 500 mg Diltiazem HCl (Cardizem Cd) 240 mg PO DAILY [facility] Last Admin: 05/15/17 09:27 Dose: 240 mg Ergocalciferol (Drisdol 50,000 Intl Units Cap) 1 cap PO Q7D [facility] Last Admin: 05/08/17 21:36 Dose: 1 cap Famotidine (Pepcid) 20 mg PO BID [facility] Last Admin: 05/15/17 17:24 Dose: 20 mg Folic Acid (Folic Acid) 1 mg PO DAILY [facility] Last Admin: 05/15/17 09:27 Dose: 1 mg Heparin Sodium (Porcine) (Heparin) 5,000 units SC Q12 [facility] PRN Reason: Protocol Last Admin: 05/15/17 09:26 Dose: 5,000 units Home Med (Sunitinib Malate [Sutent]) 50 mg PO DAILY [facility] Last Admin: 05/15/17 09:25 Dose: 50 mg Hydralazine HCl (Apresoline) 25 mg PO Q8H [facility] Last Admin: 05/15/17 13:47 Dose: 25 mg Lorazepam (Ativan) 1 mg IM Q4H PRN PRN Reason: Agitation Losartan Potassium (Cozaar) 100 mg PO DAILY [facility] Last Admin: 05/15/17 09:26 Dose: 100 mg Polyethylene Glycol (Miralax) 17 gm PO DAILY PRN PRN Reason: Constipation Last Admin: 05/09/17 09:26 Dose: 17 gm Quetiapine Fumarate (Seroquel) 12.5 mg PO BID PRN PRN Reason: Agitation Sertraline HCl (Zoloft) 12.5 mg PO DAILY [facility] Last Admin: 05/15/17 09:25 Dose: 12.5 mg Topiramate (Topamax) 75 mg PO BID [facility] Last Admin: 05/15/17 17:24 Dose: 75 mg - Labs Labs: 05/06/17 05:20 05/06/17 05:20 Assessment and Plan (1) Brain mass Status: Acute (2) CVA (cerebral vascular accident) Status: Acute (3) Focal seizure Status: Acute (4) Headache Status: Acute (5) Intracranial bleed Status: Acute (6) Intracranial mass Status: Chronic (7) Left-sided weakness Status: Acute (8) Prophylactic measure Status: Acute
[2017-05-16] MEDS: diltiaZEM 240 mg/24 Hours CD Cap PO SCH (08:16)
[2017-05-16] MEDS: SUNITINIB MALATE PO SCH (08:17)
--- NOTE | 2017-05-16 12:40 | CP.PCM.PN ---
Subjective - Date & Time of Evaluation Date of Evaluation: 05/16/17 Time of Evaluation: 10:30 - Subjective Subjective: Patient was seen and examined in [facility], for physical therapy. His left sided weakness has significantly improved since admission to acute rehabilitation. He also has much less left sided neglect as well. He was oriented today and was able to converse with me at length, although is speech was occasionally noncoherent, nonfluent. Denies any cp/sob/palpitations/headache today. Objective - Vital Signs/Intake and Output Vital Signs (last 24 hours): Temp Pulse Resp BP Pulse Ox 97.9 F 62 18 139/84 99 05/16/17 07:43 05/16/17 08:18 05/16/17 07:43 05/16/17 08:18 05/16/17 07:43 - Medications Medications: Current Medications Aspirin (Ecotrin) 81 mg PO DAILY [facility] Last Admin: 05/16/17 08:15 Dose: 81 mg Atorvastatin Calcium (Lipitor) 20 mg PO HS [facility] Last Admin: 05/15/17 21:02 Dose: 20 mg Calcium Carbonate (Oscal) 500 mg PO BIDWM [facility] Last Admin: 05/16/17 08:15 Dose: 500 mg Diltiazem HCl (Cardizem Cd) 240 mg PO DAILY [facility] Last Admin: 05/16/17 08:16 Dose: 240 mg Ergocalciferol (Drisdol 50,000 Intl Units Cap) 1 cap PO Q7D [facility] Last Admin: 05/15/17 21:02 Dose: 1 cap Famotidine (Pepcid) 20 mg PO BID [facility] Last Admin: 05/16/17 08:17 Dose: 20 mg Folic Acid (Folic Acid) 1 mg PO DAILY [facility] Last Admin: 05/16/17 08:16 Dose: 1 mg Heparin Sodium (Porcine) (Heparin) 5,000 units SC Q12 [facility] PRN Reason: Protocol Last Admin: 05/16/17 08:17 Dose: 5,000 units Home Med (Sunitinib Malate [Sutent]) 50 mg PO DAILY [facility] Last Admin: 05/16/17 08:17 Dose: 50 mg Hydralazine HCl (Apresoline) 25 mg PO Q8H [facility] Last Admin: 05/16/17 06:41 Dose: 25 mg Lorazepam (Ativan) 1 mg IM Q4H PRN PRN Reason: Agitation Losartan Potassium (Cozaar) 100 mg PO DAILY [facility] Last Admin: 05/16/17 08:18 Dose: 100 mg Polyethylene Glycol (Miralax) 17 gm PO DAILY PRN PRN Reason: Constipation Last Admin: 05/09/17 09:26 Dose: 17 gm Quetiapine Fumarate (Seroquel) 12.5 mg PO BID PRN PRN Reason: Agitation Sertraline HCl (Zoloft) 12.5 mg PO DAILY [facility] Last Admin: 05/16/17 08:15 Dose: 12.5 mg Topiramate (Topamax) 75 mg PO BID [facility] Last Admin: 05/16/17 08:17 Dose: 75 mg - Labs Labs: 05/06/17 05:20 05/06/17 05:20 - Additional Findings Additional findings: Physical exam: Constitutional- cooperative, awake, alert. Head- NCAT, PERRL Eye- PERRL, normal accommodation ENT- normal exam, MMM. Neck- normal inspection, supple, no JVD Respiratory- CTAB, no wheezes rales rhonchi Cardiovascular- RRR, +S1, +S2 no MRG GI/Abdominal- normal bowel sounds, soft, no mass, no hsm Skin- warm, dry Extremities Exam- normal capillary refill, normal inspection Neurological Exam- nonfluent speech, left homonymous hemianopsia. Alert, able to ambulate with walker Psych- normal mood, normal affect Assessment and Plan - Assessment and Plan (Free Text) Plan: Assessment: 67-year-old male with past medical history of prior CVA, 2 brain masses currently treated with chemotherapy status post right posterior parietal craniotomy in August 2016, renal mass, hypertension, hyperlipidemia presents today from [facility] after acute CVA. Patient initially presented with left-sided weakness, aphasia, and left lateral gaze. In the emergency room shortly after, patient was able to look straight ahead and speak with me mild dysarthria, slurred speech and had some left-sided weakness with left lateral gaze. Patient transferred to acute rehabilitation for further rehabilitation needs. 1. Acute CVA patient with left-sided weakness, left neglect and left homonymous hemiapnopia MRI at [facility] found acute or subacute brain infarction to posterior right MCA distribution Patient neurologist was Dr. Ewing following on topomax 50 mg po Q12 for seizure prevention for now. Will increase dose to 100 mg po Q12 in 1 week continue aspirin 81 mg daily, Statin and Bp control continue PT, OT, speech therapy. 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 Increase dose to 75 mg po BId today 6.VTE prophylaxis heparin 5000 units subcutaneous every 12 hours
--- NOTE | 2017-05-16 13:19 | PSY.TMCNF ---
Nursing - Vital Signs Vital Signs (Last 8 hours): Vital Signs 05/16/17 05/16/17 05/16/17 06:41 07:43 08:16 Temperature 97.9 F Pulse Rate 64 62 62 Respiratory 18 Rate Blood Pressure 139/84 139/84 139/84 O2 Sat by Pulse 99 Oximetry 05/16/17 08:18 Temperature Pulse Rate 62 Respiratory Rate Blood Pressure 139/84 O2 Sat by Pulse Oximetry Pain: 0 - Precautions: Precautions: Fall Prevention - Medications/Other Issues Comment: Pt at moderate nutritional risk. goals: 1. Pt will maintain within 2- 3 lbs of current body weight.(met, continue). 2. Pt to consume 75-100% of meals. Follow-up due on 05/18/2017 - Consults Comment: Dr. Smith, Dr. Barton - Toileting Toileting: Moderate Assistance - Bladder Management Bladder Pattern: Normal Voiding Method: Toilet - Bowel Management Bowel Pattern: Constipated Bowel Management: Supervision Frequency of Accidents: 0 - Transfers Transfers: Minimal Assistance - ADL's ADL's: Moderate Assistance - Patient/Family Teaching Comments: CARE POST CVA AND SAFETY PRECAUTIONS - Goals/Time Frame Comments: PER MULTIDISCIPLINARY CARE PLAN GOALS - Provider Provider: PRESLEY RODRIGUEZN RN CRRN Physical Therapy - Bed Mobility Bed Mobility: Contact Guard, Maximum Assistance Comment: fluctuates --> motorically patient with strength and able to mobilize with CG; however, due to cognitive impairments patient can require max A to initiate, execute and terminate; status depends on his mood/awareness/attention at given moment - Transfers Sit to Stand: Supervision, Verbal Cues, Contact Guard - Ambulation Level of Assistance: Contact Guard Distance (ft.): 200 Assistive Devices: N/A - Stair Negotiation Stairs: Level of Assistance: Contact Guard, Minimal Assistance Number of Stairs: 6 Stairs: Assistive Devices: Left Handrail, Right Handrail - Standing Balance Static Stand: Contact Guard Assist Dynamic Stand: Minimal Assistance - Pain Pain (assessed during therapy session): 0 - Insight/Carryover Insight/Carryover: Fair - Patient/Family Education Comment: therapy schedule, POC, goals, mobility, safety - Assessment/Plan Assessment: Jorge Jarrett presents with moderate-severe cognitive-linguistic deficits characterized by impaired orientation, attention, problem solving, immediate and short-term memory, ability to follow simple commands, thought organization, and insight/safety. Pt's impaired attention to L, lethargy, and inconsistent motivation to participate are all barriers to learning in addition to cognitive deficits. His performance in tx tasks noticably improves with improved attention and consistent cueing. Pt would benefit from continued ST for improved cognition. - Goals Timeframe: 7 days Goals: bed mobility with CS. transfers with CG. gait x 200 feet with RW without collisions with CG. training 4 6inch steps with single rail with min A - Provider License Number: [id number] Occupational Therapy - Arousal/Attention/Orientation Level of Consciousness: Forgetful, Disoriented, Confused Patient Orientation: Person, Place, Time, Appropriate to Situation Assessment Comment: Patient takes longer than customary to answer questions, however was oriented x4 with minimal prompting - ADL/IADL Self Feeding: Supervision, Verbal Cues, Set-up Help Grooming: Supervision, Verbal Cues, Set-up Help Bathing-Upper Extremity: Verbal Cues, Set-up Help, Moderate Assistance Bathing-Lower Extremity: Verbal Cues, Set-up Help, Moderate Assistance Dressing-Upper Extremity: Verbal Cues, Set-up Help, Minimal Assistance, Moderate Assistance Dressing-Lower Extremity: Verbal Cues, Set-up Help, Moderate Assistance - Sitting Balance Static Sitting: Supervision Dynamic Sitting: Reaches across midline, Reaches out of base of support, Reaches within base of support, Contact Guard Assist, Minimal Assistance Comment: seated at edge of bed - Transfers Wheelchair to Bed Transfers: Verbal Cues, Set-up Help, Contact Guard, Minimal Assistance Toilet Transfers: Verbal Cues, Set-up Help, Contact Guard, Minimal Assistance Comment: shower transfers: modearate assist and verbal cues - Upper Extremity Status Right Upper Extremity Comment: AROM is WFLs Left Upper Extremity Comment: AROM is WFLs - Pain Pain (assessed during therapy session): 0 - Insight/Carryover Insight/Carryover: Fair - Patient/Family Education Comment: therapy schedule, POC, goals, mobility, safety - Assessment/Plan Assessment: Jorge Jarrett presents with moderate-severe cognitive-linguistic deficits characterized by impaired orientation, attention, problem solving, immediate and short-term memory, ability to follow simple commands, thought organization, and insight/safety. Pt's impaired attention to L, lethargy, and inconsistent motivation to participate are all barriers to learning in addition to cognitive deficits. His performance in tx tasks noticably improves with improved attention and consistent cueing. Pt would benefit from continued ST for improved cognition. - Goals Timeframe: 7 days Goals: bed mobility with CS. transfers with CG. gait x 200 feet with RW without collisions with CG. training 4 6inch steps with single rail with min A - Provider Therapist: MICHAELLE Gonzales License Number: [id number] Speech Therapy - Consult Information Patient on Program: Yes Medical Diagnosis: CVA Treatment Diagnosis: moderate-severe cognitive deficits - Assessment Problem Solving Impairment: Severe Memory Impairment: Severe - Plan Assessment: Jorge Jarrett presents with moderate-severe cognitive-linguistic deficits characterized by impaired orientation, attention, problem solving, immediate and short-term memory, ability to follow simple commands, thought organization, and insight/safety. Pt's impaired attention to L, lethargy, and inconsistent motivation to participate are all barriers to learning in addition to cognitive deficits. His performance in tx tasks noticably improves with improved attention and consistent cueing. Pt would benefit from continued ST for improved cognition. Plan: Continue Speech/Language Therapy Frequency: 3-5 times per week Duration: 1 week Goals/Timeframe: Please see progress note dated 05/16/17 for updated goals/POC Recommendations: Continue ST 3-5x/week - Provider Therapist: Osiris Childress License Number: [id number] Recreational Therapy - Participation Participation: Monitors His/Her Own Leisure Time - Attendance Attendance: Daily - Activities Leisure Activities: Television - Socialization Level of Socialization: Initiates/interacts with caregivers but not with peer, Isolate by choice, Responds freely, but does not initiate, Requires 1:1 guidance to respond, Minimal initiation of interaction to request basic needs - Assessment Assessment/Plan: Jorge Jarrett presents with moderate-severe cognitive- linguistic deficits characterized by impaired orientation, attention, problem solving, immediate and short-term memory, ability to follow simple commands, thought organization, and insight/safety. Pt's impaired attention to L, lethargy , and inconsistent motivation to participate are all barriers to learning in addition to cognitive deficits. His performance in tx tasks noticably improves with improved attention and consistent cueing. Pt would benefit from continued ST for improved cognition. - Provider Therapist: Gabriella Newman, [employer] #[id number] Nutrition - Current Diet Current Diet/ Supplement/ Feedings: Heart healthy ensure plus 1 per day(350 kcal and 13 grams of protein) - Appetite Percent Meal Consumed: 50-74% - Comments Comments: CARE POST CVA AND SAFETY PRECAUTIONS - Assessment/Goals/Time Frame Assessment/Goals/Time Frame: Pt at moderate nutritional risk. goals: 1. Pt will maintain within 2-3 lbs of current body weight.(met, continue). 2. Pt to consume 75-100% of meals. Follow-up due on 05/18/2017 - Provider Provider: Marielle Dyer RD Case Management - Psychosocial Assessment Support Systems: Ana Taylor (spouse)- [phone] Psychological Interventions/Needs: Patient is alert with intermittent agitation and confusion requiring redirection and 1:1 Discharge Concerns: Patient currently requiring min-mod A for functional mobility Patient/Family Meeting: CM met with patient/spouse and rehab team via certified [employer] [place] speaking patient transportation driver [employer] #[id number] Intervention/Goal/Outcome:: 1. Goal: 24 hour supervision? 2. Plan: Home with VNS and family support vs [facility]MIN dependent on progress in rehab. 3. DME needs. 4. caregiver training. 5. f/u appts. 6. CM to assist spouse in completing FMLA paperwork. 7. tentative discharge date: 05/29/2017 - Discharge Plan Discharge Plan: Home with services, Subacute care - Provider Provider: TORIN Adames, [employer] License Number: [id number] Rehabilitation Plan - Treatment Plan Treatment Plan: Physical Therapy, Occupational Therapy, Speech, Dietary, Patient /Family Education - Recommendation Recommendation: Physical Therapy, Occupational Therapy, Dietary, Patient/Family Education - Discharge Plan Discharge to: Home
--- NOTE | 2017-05-16 14:30 | CP.PCM.PN ---
Subjective - Date & Time of Evaluation Date of Evaluation: 05/16/17 Time of Evaluation: 09:30 - Subjective Subjective: no acute complaints at present Objective - Vital Signs/Intake and Output Vital Signs (last 24 hours): Temp Pulse Resp BP Pulse Ox 97.9 F 62 18 139/84 99 05/16/17 07:43 05/16/17 08:18 05/16/17 07:43 05/16/17 08:18 05/16/17 07:43 - Medications Medications: Current Medications Aspirin (Ecotrin) 81 mg PO DAILY [facility] Last Admin: 05/16/17 08:15 Dose: 81 mg Atorvastatin Calcium (Lipitor) 20 mg PO HS [facility] Last Admin: 05/15/17 21:02 Dose: 20 mg Calcium Carbonate (Oscal) 500 mg PO BIDWM [facility] Last Admin: 05/16/17 08:15 Dose: 500 mg Diltiazem HCl (Cardizem Cd) 240 mg PO DAILY [facility] Last Admin: 05/16/17 08:16 Dose: 240 mg Ergocalciferol (Drisdol 50,000 Intl Units Cap) 1 cap PO Q7D [facility] Last Admin: 05/15/17 21:02 Dose: 1 cap Famotidine (Pepcid) 20 mg PO BID [facility] Last Admin: 05/16/17 08:17 Dose: 20 mg Folic Acid (Folic Acid) 1 mg PO DAILY [facility] Last Admin: 05/16/17 08:16 Dose: 1 mg Heparin Sodium (Porcine) (Heparin) 5,000 units SC Q12 [facility] PRN Reason: Protocol Last Admin: 05/16/17 08:17 Dose: 5,000 units Home Med (Sunitinib Malate [Sutent]) 50 mg PO DAILY [facility] Last Admin: 05/16/17 08:17 Dose: 50 mg Hydralazine HCl (Apresoline) 25 mg PO Q8H [facility] Last Admin: 05/16/17 06:41 Dose: 25 mg Lorazepam (Ativan) 1 mg IM Q4H PRN PRN Reason: Agitation Losartan Potassium (Cozaar) 100 mg PO DAILY [facility] Last Admin: 05/16/17 08:18 Dose: 100 mg Polyethylene Glycol (Miralax) 17 gm PO DAILY PRN PRN Reason: Constipation Last Admin: 05/09/17 09:26 Dose: 17 gm Quetiapine Fumarate (Seroquel) 12.5 mg PO BID PRN PRN Reason: Agitation Sertraline HCl (Zoloft) 12.5 mg PO DAILY [facility] Last Admin: 05/16/17 08:15 Dose: 12.5 mg Topiramate (Topamax) 75 mg PO BID [facility] Last Admin: 05/16/17 08:17 Dose: 75 mg - Labs Labs: 05/06/17 05:20 05/06/17 05:20 - Head Exam Head Exam: ATRAUMATIC, NORMAL INSPECTION, NORMOCEPHALIC - Eye Exam Eye Exam: EOMI, Normal appearance, PERRL Pupil Exam: NORMAL ACCOMODATION - ENT Exam ENT Exam: Mucous Membranes Moist, Normal Exam - Neck Exam Neck Exam: Normal Inspection - Respiratory Exam Respiratory Exam: NORMAL BREATHING PATTERN - Cardiovascular Exam Cardiovascular Exam: REGULAR RHYTHM - GI/Abdominal Exam GI & Abdominal Exam: Soft - Rectal Exam Rectal Exam: NORMAL INSPECTION - Exam External exam: NORMAL EXTERNAL EXAM - Extremities Exam Extremities Exam: Full ROM, Normal Capillary Refill - Back Exam Back Exam: NORMAL INSPECTION - Neurological Exam Neurological Exam: Alert, Awake Neuro motor strength exam: Left Upper Extremity: 3, Right Upper Extremity: 3, Left Lower Extremity: 3, Right Lower Extremity: 3 - Psychiatric Exam Psychiatric exam: Normal Affect, Normal Mood - Skin Skin Exam: Dry, Intact Assessment and Plan (1) Brain mass Status: Acute (2) CVA (cerebral vascular accident) Assessment & Plan: plan for PT, Ot rec and speech therapy Dc plaaning for Dc 3 team conference Status: Acute (3) Focal seizure Status: Acute (4) Intracranial bleed Status: Acute (5) Left-sided weakness Status: Acute (6) Prophylactic measure Status: Acute (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
--- NOTE | 2017-05-16 22:34 | CP.PCM.PN ---
Subjective - Date & Time of Evaluation Date of Evaluation: 05/16/17 Time of Evaluation: 22:31 - Subjective Subjective: He is moving the left side much better. When asked to raise his Left UE and the Left LE he is moving them and pointing at them. Much less left sided neglect. He is talking more and is answering questions and is cooperative. 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 Objective - Vital Signs/Intake and Output Vital Signs (last 24 hours): Temp Pulse Resp BP Pulse Ox 97.4 F L 71 20 159/95 H 99 05/16/17 19:47 05/16/17 21:53 05/16/17 19:47 05/16/17 21:53 05/16/17 19:47 - Medications Medications: Current Medications Aspirin (Ecotrin) 81 mg PO DAILY [facility] Last Admin: 05/16/17 08:15 Dose: 81 mg Atorvastatin Calcium (Lipitor) 20 mg PO HS [facility] Last Admin: 05/16/17 21:53 Dose: 20 mg Calcium Carbonate (Oscal) 500 mg PO BIDWM [facility] Last Admin: 05/16/17 16:05 Dose: 500 mg Diltiazem HCl (Cardizem Cd) 240 mg PO DAILY [facility] Last Admin: 05/16/17 08:16 Dose: 240 mg Ergocalciferol (Drisdol 50,000 Intl Units Cap) 1 cap PO Q7D [facility] Last Admin: 05/15/17 21:02 Dose: 1 cap Famotidine (Pepcid) 20 mg PO BID [facility] Last Admin: 05/16/17 16:05 Dose: 20 mg Folic Acid (Folic Acid) 1 mg PO DAILY [facility] Last Admin: 05/16/17 08:16 Dose: 1 mg Heparin Sodium (Porcine) (Heparin) 5,000 units SC Q12 [facility] PRN Reason: Protocol Last Admin: 05/16/17 21:53 Dose: 5,000 units Home Med (Sunitinib Malate [Sutent]) 50 mg PO DAILY [facility] Last Admin: 05/16/17 08:17 Dose: 50 mg Hydralazine HCl (Apresoline) 25 mg PO Q8H [facility] Last Admin: 05/16/17 21:53 Dose: 25 mg Lorazepam (Ativan) 1 mg IM Q4H PRN PRN Reason: Agitation Losartan Potassium (Cozaar) 100 mg PO DAILY [facility] Last Admin: 05/16/17 08:18 Dose: 100 mg Polyethylene Glycol (Miralax) 17 gm PO DAILY PRN PRN Reason: Constipation Last Admin: 05/09/17 09:26 Dose: 17 gm Quetiapine Fumarate (Seroquel) 12.5 mg PO BID PRN PRN Reason: Agitation Sertraline HCl (Zoloft) 12.5 mg PO DAILY [facility] Last Admin: 05/16/17 08:15 Dose: 12.5 mg Topiramate (Topamax) 75 mg PO BID [facility] Last Admin: 05/16/17 16:06 Dose: 75 mg - Labs Labs: 05/06/17 05:20 05/06/17 05:20 Assessment and Plan (1) Brain mass Status: Acute (2) CVA (cerebral vascular accident) Status: Acute (3) Focal seizure Status: Acute (4) Headache Status: Acute (5) Intracranial bleed Status: Acute (6) Intracranial mass Status: Chronic (7) Left-sided weakness Status: Acute (8) Prophylactic measure Status: Acute
[2017-05-17] MEDS: diltiaZEM 240 mg/24 Hours CD Cap PO SCH (08:40)
[2017-05-17] MEDS: SUNITINIB MALATE PO SCH (14:06)
--- NOTE | 2017-05-17 21:25 | CP.PCM.PN ---
Subjective - Date & Time of Evaluation Date of Evaluation: 05/17/17 Time of Evaluation: 20:40 - Subjective Subjective: Patient is more cooperative with Rehab course. He was given training on how to use his medicine. However it seems he needs more training on the administration of his medicine. Objective - Vital Signs/Intake and Output Vital Signs (last 24 hours): Temp Pulse Resp BP Pulse Ox 98.9 F 89 20 157/99 H 97 05/17/17 19:53 05/17/17 19:53 05/17/17 19:53 05/17/17 19:53 05/17/17 19:53 - Medications Medications: Current Medications Aspirin (Ecotrin) 81 mg PO DAILY [facility] Last Admin: 05/17/17 08:41 Dose: 81 mg Atorvastatin Calcium (Lipitor) 20 mg PO HS [facility] Last Admin: 05/16/17 21:53 Dose: 20 mg Calcium Carbonate (Oscal) 500 mg PO BIDWM [facility] Last Admin: 05/17/17 17:25 Dose: 500 mg Diltiazem HCl (Cardizem Cd) 240 mg PO DAILY [facility] Last Admin: 05/17/17 08:40 Dose: 240 mg Ergocalciferol (Drisdol 50,000 Intl Units Cap) 1 cap PO Q7D [facility] Last Admin: 05/15/17 21:02 Dose: 1 cap Famotidine (Pepcid) 20 mg PO BID [facility] Last Admin: 05/17/17 17:25 Dose: 20 mg Folic Acid (Folic Acid) 1 mg PO DAILY [facility] Last Admin: 05/17/17 08:41 Dose: 1 mg Heparin Sodium (Porcine) (Heparin) 5,000 units SC Q12 [facility] PRN Reason: Protocol Last Admin: 05/17/17 08:41 Dose: 5,000 units Home Med (Sunitinib Malate [Sutent]) 50 mg PO DAILY [facility] Last Admin: 05/17/17 14:06 Dose: Not Given Hydralazine HCl (Apresoline) 25 mg PO Q8H [facility] Last Admin: 05/17/17 14:05 Dose: 25 mg Lactulose (Enulose) 20 gm PO BID PRN PRN Reason: Constipation Lorazepam (Ativan) 1 mg IM Q4H PRN PRN Reason: Agitation Losartan Potassium (Cozaar) 100 mg PO DAILY [facility] Last Admin: 05/17/17 08:41 Dose: 100 mg Polyethylene Glycol (Miralax) 17 gm PO DAILY PRN PRN Reason: Constipation Last Admin: 05/09/17 09:26 Dose: 17 gm Quetiapine Fumarate (Seroquel) 12.5 mg PO BID PRN PRN Reason: Agitation Sertraline HCl (Zoloft) 12.5 mg PO DAILY [facility] Last Admin: 05/17/17 08:43 Dose: 12.5 mg Topiramate (Topamax) 75 mg PO BID [facility] Last Admin: 05/17/17 17:25 Dose: 75 mg - Labs Labs: 05/06/17 05:20 05/06/17 05:20 Assessment and Plan (1) Brain mass Status: Acute (2) CVA (cerebral vascular accident) Status: Acute (3) Focal seizure Status: Acute (4) Headache Status: Acute (5) Intracranial bleed Status: Acute (6) Intracranial mass Status: Chronic (7) Left-sided weakness Status: Acute (8) Prophylactic measure Status: Acute
[2017-05-18] MEDS: diltiaZEM 240 mg/24 Hours CD Cap PO SCH (08:36)
[2017-05-18] MEDS: SUNITINIB MALATE PO SCH (09:05)
--- NOTE | 2017-05-18 10:43 | PN ---
DATE: Dr. Howard covering for Dr. Smith. SUBJECTIVE: The patient is feeling fine. No acute complaints at present. PHYSICAL EXAMINATION: VITAL SIGNS: Vitals are stable. NECK: Supple. CHEST: Symmetrical. HEART: Sounds S1 and S2. ABDOMEN: Abdominal area is benign. EXTREMITIES: No clubbing, cyanosis or edema. ASSESSMENT AND PLAN: The patient with diagnosis of right middle cerebral artery stroke, hypertension, renal mass, status post parietal craniotomy. Getting physical therapy, occupational therapy, recreational and speech therapy. Continue with therapy program. Again, covering for Dr. Smith. Dev MD Anita
--- NOTE | 2017-05-18 12:10 | CP.PCM.PN ---
Subjective - Date & Time of Evaluation Date of Evaluation: 05/18/17 Time of Evaluation: 13:30 - Subjective Subjective: Patient seen and examined.participating with PT. Hemodynamically stable, afebrile.Feeling well Objective - Vital Signs/Intake and Output Vital Signs (last 24 hours): Temp Pulse Resp BP Pulse Ox 98.1 F 80 19 149/94 H 96 05/18/17 08:43 05/18/17 08:43 05/18/17 08:43 05/18/17 08:43 05/18/17 08:43 - Medications Medications: Current Medications Aspirin (Ecotrin) 81 mg PO DAILY [facility] Last Admin: 05/18/17 08:37 Dose: 81 mg Atorvastatin Calcium (Lipitor) 20 mg PO HS [facility] Last Admin: 05/17/17 21:47 Dose: 20 mg Calcium Carbonate (Oscal) 500 mg PO BIDWM [facility] Last Admin: 05/18/17 08:36 Dose: 500 mg Diltiazem HCl (Cardizem Cd) 240 mg PO DAILY [facility] Last Admin: 05/18/17 08:36 Dose: 240 mg Ergocalciferol (Drisdol 50,000 Intl Units Cap) 1 cap PO Q7D [facility] Last Admin: 05/15/17 21:02 Dose: 1 cap Famotidine (Pepcid) 20 mg PO BID [facility] Last Admin: 05/18/17 08:36 Dose: 20 mg Folic Acid (Folic Acid) 1 mg PO DAILY [facility] Last Admin: 05/18/17 08:36 Dose: 1 mg Heparin Sodium (Porcine) (Heparin) 5,000 units SC Q12 [facility] PRN Reason: Protocol Last Admin: 05/18/17 08:38 Dose: 5,000 units Home Med (Sunitinib Malate [Sutent]) 50 mg PO DAILY [facility] Last Admin: 05/18/17 09:05 Dose: Not Given Hydralazine HCl (Apresoline) 25 mg PO Q8H [facility] Last Admin: 05/18/17 06:11 Dose: 25 mg Lactulose (Enulose) 20 gm PO BID PRN PRN Reason: Constipation Lorazepam (Ativan) 1 mg IM Q4H PRN PRN Reason: Agitation Losartan Potassium (Cozaar) 100 mg PO DAILY [facility] Last Admin: 05/18/17 08:37 Dose: 100 mg Polyethylene Glycol (Miralax) 17 gm PO DAILY PRN PRN Reason: Constipation Last Admin: 05/09/17 09:26 Dose: 17 gm Quetiapine Fumarate (Seroquel) 12.5 mg PO BID PRN PRN Reason: Agitation Sertraline HCl (Zoloft) 12.5 mg PO DAILY [facility] Last Admin: 05/18/17 08:36 Dose: 12.5 mg Topiramate (Topamax) 75 mg PO BID [facility] Last Admin: 05/18/17 08:38 Dose: 75 mg - Labs Labs: 05/06/17 05:20 05/06/17 05:20 - Constitutional Appears: Non-toxic, No Acute Distress - Head Exam Head Exam: ATRAUMATIC, NORMOCEPHALIC - Eye Exam Eye Exam: EOMI, Normal appearance, PERRL Pupil Exam: NORMAL ACCOMODATION - ENT Exam ENT Exam: Mucous Membranes Moist, Normal Exam - Neck Exam Neck Exam: Full ROM, Normal Inspection - Respiratory Exam Respiratory Exam: Clear to Ausculation Bilateral, NORMAL BREATHING PATTERN. absent: Rales, Rhonchi, Wheezes - Cardiovascular Exam Cardiovascular Exam: REGULAR RHYTHM, RRR, +S1, +S2. absent: JVD - GI/Abdominal Exam GI & Abdominal Exam: Soft, Normal Bowel Sounds. absent: Distended, Guarding, Tenderness, Rebound - Rectal Exam Rectal Exam: Deferred - Extremities Exam Extremities Exam: Full ROM, Normal Capillary Refill, Normal Inspection. absent : Calf Tenderness, Pedal Edema - Back Exam Back Exam: NORMAL INSPECTION - Neurological Exam Neurological Exam: Alert, Awake, Oriented x3 Additional comments: dysarthria left side weakness left hemineglect - Psychiatric Exam Psychiatric exam: Normal Affect - Skin Skin Exam: Dry, Intact, Normal Color, Warm Assessment and Plan - Assessment and Plan (Free Text) Assessment: 67-year-old male with past medical history of prior CVA, 2 brain masses currently treated with chemotherapy status post right posterior parietal craniotomy in August 2016, renal mass, hypertension, hyperlipidemia sent from [facility] after acute CVA. Patient initially presented with left-sided weakness, aphasia, and left lateral gaze. In the emergency room shortly after, patient was able to look straight ahead and speak with me mild dysarthria, slurred speech and had some left-sided weakness with left lateral gaze. Patient transferred to acute rehabilitation for further rehabilitation needs. 1. Acute CVA patient with left-sided weakness, left neglect , dysarthria MRI at [facility] found acute or subacute brain infarction to posterior right MCA distribution Patient neurologist was Dr. Ewing following on topomax 75 mg po Q12 for seizure prevention continue aspirin 81 mg daily, Statin and BP control continue PT, OT, speech therapy. 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 Increased dose to 75 mg po BID 6.VTE prophylaxis heparin 5000 units subcutaneous every 12 hours
--- NOTE | 2017-05-18 21:40 | CP.PCM.PN ---
Subjective - Date & Time of Evaluation Date of Evaluation: 05/18/17 Time of Evaluation: 20:45 - Subjective Subjective: Improving day after day from Left hemiparesis, left facial palsy [facility] type, Less left side neglect, much less left side paralysis. Power of Left Side UE, LE is better and is 4 /5. Objective - Vital Signs/Intake and Output Vital Signs (last 24 hours): Temp Pulse Resp BP Pulse Ox 97.4 F L 76 20 161/97 H 98 05/18/17 19:52 05/18/17 19:52 05/18/17 19:52 05/18/17 19:52 05/18/17 19:52 - Medications Medications: Current Medications Aspirin (Ecotrin) 81 mg PO DAILY [facility] Last Admin: 05/18/17 08:37 Dose: 81 mg Atorvastatin Calcium (Lipitor) 20 mg PO HS [facility] Last Admin: 05/17/17 21:47 Dose: 20 mg Calcium Carbonate (Oscal) 500 mg PO BIDWM [facility] Last Admin: 05/18/17 17:33 Dose: 500 mg Diltiazem HCl (Cardizem Cd) 240 mg PO DAILY [facility] Last Admin: 05/18/17 08:36 Dose: 240 mg Ergocalciferol (Drisdol 50,000 Intl Units Cap) 1 cap PO Q7D [facility] Last Admin: 05/15/17 21:02 Dose: 1 cap Famotidine (Pepcid) 20 mg PO BID [facility] Last Admin: 05/18/17 17:33 Dose: 20 mg Folic Acid (Folic Acid) 1 mg PO DAILY [facility] Last Admin: 05/18/17 08:36 Dose: 1 mg Heparin Sodium (Porcine) (Heparin) 5,000 units SC Q12 [facility] PRN Reason: Protocol Last Admin: 05/18/17 08:38 Dose: 5,000 units Home Med (Sunitinib Malate [Sutent]) 50 mg PO DAILY [facility] Last Admin: 05/18/17 09:05 Dose: Not Given Hydralazine HCl (Apresoline) 25 mg PO Q8H [facility] Last Admin: 05/18/17 14:39 Dose: 25 mg Lactulose (Enulose) 20 gm PO BID PRN PRN Reason: Constipation Lorazepam (Ativan) 1 mg IM Q4H PRN PRN Reason: Agitation Losartan Potassium (Cozaar) 100 mg PO DAILY [facility] Last Admin: 05/18/17 08:37 Dose: 100 mg Polyethylene Glycol (Miralax) 17 gm PO DAILY PRN PRN Reason: Constipation Last Admin: 05/09/17 09:26 Dose: 17 gm Quetiapine Fumarate (Seroquel) 12.5 mg PO BID PRN PRN Reason: Agitation Sertraline HCl (Zoloft) 12.5 mg PO DAILY [facility] Last Admin: 05/18/17 08:36 Dose: 12.5 mg Topiramate (Topamax) 75 mg PO BID [facility] Last Admin: 05/18/17 17:33 Dose: 75 mg - Labs Labs: 05/06/17 05:20 05/06/17 05:20 Assessment and Plan (1) Brain mass Status: Acute (2) CVA (cerebral vascular accident) Status: Acute (3) Focal seizure Status: Acute (4) Headache Status: Acute (5) Intracranial bleed Status: Acute (6) Intracranial mass Status: Chronic (7) Left-sided weakness Status: Acute (8) Prophylactic measure Status: Acute
[2017-05-19] MEDS: diltiaZEM 240 mg/24 Hours CD Cap PO SCH (09:00)
[2017-05-19] MEDS: SUNITINIB MALATE PO SCH (10:43)
--- NOTE | 2017-05-19 22:36 | CP.PCM.PN ---
Subjective - Date & Time of Evaluation Date of Evaluation: 05/19/17 Time of Evaluation: 21:30 - Subjective Subjective: No Seizures, doing better, received a visit by his family. Able to walk to the bathroom with assistance. Objective - Vital Signs/Intake and Output Vital Signs (last 24 hours): Temp Pulse Resp BP Pulse Ox 98.0 F 60 20 138/80 97 05/19/17 19:15 05/19/17 21:01 05/19/17 19:15 05/19/17 21:01 05/19/17 19:15 - Medications Medications: Current Medications Aspirin (Ecotrin) 81 mg PO DAILY [facility] Last Admin: 05/19/17 09:00 Dose: 81 mg Atorvastatin Calcium (Lipitor) 20 mg PO HS [facility] Last Admin: 05/19/17 21:01 Dose: 20 mg Calcium Carbonate (Oscal) 500 mg PO BIDWM [facility] Last Admin: 05/19/17 17:29 Dose: 500 mg Diltiazem HCl (Cardizem Cd) 240 mg PO DAILY [facility] Last Admin: 05/19/17 09:00 Dose: 240 mg Ergocalciferol (Drisdol 50,000 Intl Units Cap) 1 cap PO Q7D [facility] Last Admin: 05/15/17 21:02 Dose: 1 cap Famotidine (Pepcid) 20 mg PO BID [facility] Last Admin: 05/19/17 17:29 Dose: 20 mg Folic Acid (Folic Acid) 1 mg PO DAILY [facility] Last Admin: 05/19/17 09:00 Dose: 1 mg Heparin Sodium (Porcine) (Heparin) 5,000 units SC Q12 [facility] PRN Reason: Protocol Last Admin: 05/19/17 20:44 Dose: 5,000 units Home Med (Sunitinib Malate [Sutent]) 50 mg PO DAILY [facility] Last Admin: 05/19/17 10:43 Dose: Not Given Hydralazine HCl (Apresoline) 25 mg PO Q8H [facility] Last Admin: 05/19/17 21:01 Dose: 25 mg Lactulose (Enulose) 20 gm PO BID PRN PRN Reason: Constipation Lorazepam (Ativan) 1 mg IM Q4H PRN PRN Reason: Agitation Losartan Potassium (Cozaar) 100 mg PO DAILY [facility] Last Admin: 05/19/17 09:00 Dose: 100 mg Polyethylene Glycol (Miralax) 17 gm PO DAILY PRN PRN Reason: Constipation Last Admin: 05/09/17 09:26 Dose: 17 gm Quetiapine Fumarate (Seroquel) 12.5 mg PO BID PRN PRN Reason: Agitation Sertraline HCl (Zoloft) 12.5 mg PO DAILY [facility] Last Admin: 05/19/17 09:00 Dose: 12.5 mg Topiramate (Topamax) 75 mg PO BID [facility] Last Admin: 05/19/17 17:29 Dose: 75 mg - Labs Labs: 05/06/17 05:20 05/06/17 05:20 Assessment and Plan (1) Brain mass Status: Acute (2) CVA (cerebral vascular accident) Status: Acute (3) Focal seizure Status: Acute (4) Headache Status: Acute (5) Intracranial bleed Status: Acute (6) Intracranial mass Status: Chronic (7) Left-sided weakness Status: Acute (8) Prophylactic measure Status: Acute
[2017-05-20] MEDS: SUNITINIB MALATE PO SCH (08:55)
[2017-05-20] MEDS: diltiaZEM 240 mg/24 Hours CD Cap PO SCH (09:02)
--- NOTE | 2017-05-20 10:36 | CP.PCM.PN ---
Subjective - Date & Time of Evaluation Date of Evaluation: 05/20/17 Time of Evaluation: 10:33 - Subjective Subjective: patient seen and examined at bedside for acute CVA. Patient is participating with physical therapy well, and states he is feeling better. Per staff left- sided neglect and weakness have been slowly improving with physical therapy. She denies chest pain, shortness of breath. Hemodynamically stable in no acute distress. Objective - Vital Signs/Intake and Output Vital Signs (last 24 hours): Temp Pulse Resp BP Pulse Ox 98.0 F 87 20 150/60 97 05/19/17 19:15 05/20/17 09:03 05/19/17 19:15 05/20/17 09:03 05/19/17 19:15 Physical exam: Constitutional- cooperative, awake, alert. Head- NCAT, PERRL Eye- PERRL, normal accommodation ENT- normal exam, MMM. Neck- normal inspection, supple, no JVD Respiratory- CTAB, no wheezes rales rhonchi Cardiovascular- RRR, +S1, +S2 no MRG GI/Abdominal- normal bowel sounds, soft, no mass, no hsm Skin- warm, dry Extremities Exam- normal capillary refill, normal inspection Neurological Exam- alert, improving L sided weakness, however persistent. L sided neglect also improving Psych- normal mood, normal affect - Medications Medications: Current Medications Aspirin (Ecotrin) 81 mg PO DAILY [facility] Last Admin: 05/20/17 08:54 Dose: 81 mg Atorvastatin Calcium (Lipitor) 20 mg PO HS [facility] Last Admin: 05/19/17 21:01 Dose: 20 mg Calcium Carbonate (Oscal) 500 mg PO BIDWM [facility] Last Admin: 05/20/17 08:54 Dose: 500 mg Diltiazem HCl (Cardizem Cd) 240 mg PO DAILY [facility] Last Admin: 05/20/17 09:02 Dose: 240 mg Ergocalciferol (Drisdol 50,000 Intl Units Cap) 1 cap PO Q7D [facility] Last Admin: 05/15/17 21:02 Dose: 1 cap Famotidine (Pepcid) 20 mg PO BID [facility] Last Admin: 05/20/17 08:53 Dose: 20 mg Folic Acid (Folic Acid) 1 mg PO DAILY [facility] Last Admin: 05/20/17 08:53 Dose: 1 mg Heparin Sodium (Porcine) (Heparin) 5,000 units SC Q12 [facility] PRN Reason: Protocol Last Admin: 05/20/17 08:56 Dose: 5,000 units Home Med (Sunitinib Malate [Sutent]) 50 mg PO DAILY [facility] Last Admin: 05/20/17 08:55 Dose: Not Given Hydralazine HCl (Apresoline) 25 mg PO Q8H [facility] Lactulose (Enulose) 20 gm PO BID PRN PRN Reason: Constipation Lorazepam (Ativan) 1 mg IM Q4H PRN PRN Reason: Agitation Losartan Potassium (Cozaar) 100 mg PO DAILY [facility] Last Admin: 05/20/17 09:03 Dose: 100 mg Polyethylene Glycol (Miralax) 17 gm PO DAILY PRN PRN Reason: Constipation Last Admin: 05/09/17 09:26 Dose: 17 gm Quetiapine Fumarate (Seroquel) 12.5 mg PO BID PRN PRN Reason: Agitation Last Admin: 05/20/17 08:54 Dose: 12.5 mg Sertraline HCl (Zoloft) 12.5 mg PO DAILY [facility] Last Admin: 05/20/17 08:54 Dose: 12.5 mg Topiramate (Topamax) 75 mg PO BID [facility] Last Admin: 05/20/17 08:55 Dose: 75 mg - Labs Labs: 05/06/17 05:20 05/06/17 05:20 Assessment and Plan - Assessment and Plan (Free Text) Plan: 67-year-old male with past medical history of prior CVA, 2 brain masses currently treated with chemotherapy status post right posterior parietal craniotomy in August 2016, renal mass, hypertension, hyperlipidemia sent from [facility] after acute CVA. Patient initially presented with left-sided weakness, aphasia, and left lateral gaze. In the emergency room shortly after, patient was able to look straight ahead and speak with me mild dysarthria, slurred speech and had some left-sided weakness with left lateral gaze. Patient transferred to acute rehabilitation for further rehabilitation needs. 1. Acute CVA patient with left-sided weakness, left neglect, dysarthria - left sided weakness and neglect improving with therapy MRI at [facility] found acute or subacute brain infarction to posterior right MCA distribution Patient neurologist was Dr. Ewing following on topomax 75 mg po Q12 for seizure prevention continue aspirin 81 mg daily, Statin and BP control continue PT, OT, speech therapy. 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 No need for dose adjustment continue diltiazem,losartan,hydralazine 4.History of renal mass Brain masses currently on chemotherapy continue current therapy 5.Focal seizures seizure free on Topomax . Increased dose to 75 mg po BID 6. Vitamin D deficiency pt initiated on Ergocalciferol and Calcium Carbonate per neuro VTE prophylaxis heparin 5000 units subcutaneous every 12 hours Pt was initiated on GI ppx on admission to be discontinued upon discharge
[2017-05-20 15:45] LABS: POTASSIUM 3.8 MMOL/L (3.6-5.0)
[2017-05-20 15:47] LABS: ALB/GLOB RATIO 1.3 (1.0-2.1); ALKALINE PHOSPHATASE 79 U/L (38-126); ALT/SGPT 53 U/L (21-72); AST/SGOT 61 U/L (17-59); BILIRUBIN,TOTAL 0.3 mg/dl (0.2-1.3); BLOOD UREA NITROGEN 12 mg/dl (9-20); CALCIUM 9.5 mg/dL (8.4-10.2); CARBON DIOXIDE 23 mmol/L (22-30); CHLORIDE 95 mmol/L (98-107); GFR AFRICAN-AMERICAN > 60; GLUCOSE,RANDOM 121 mg/dL (75-110); MAGNESIUM 1.7 MG/DL (1.6-2.3); PHOSPHOROUS 2.4 mg/dl (2.5-4.5); SODIUM 127 mmol/l (132-148); TOTAL PROTEIN 7.3 G/DL (6.3-8.2)
[2017-05-20 15:56] LABS: BASO % 0.5 % (0.0-2.0); EOS # 0.1 K/uL (0.0-0.7); EOS % 1.9 % (0.0-4.0); HEMATOCRIT 40.1 % (35.0-51.0); LYMPH # 1.7 K/uL (1.0-4.3); LYMPH % 45.7 % (20.0-40.0); MEAN CELL VOLUME 91.8 fl (80.0-94.0); MEAN CORPUSCULAR HEMOGLOBIN 31.5 pg (27.0-31.0); MEAN CORPUSCULAR HGB CONC 34.3 g/dL (33.0-37.0); MEAN PLATELET VOLUME 9.9 fl (7.2-11.7); MONO # 0.5 K/uL (0.0-0.8); MONO % 13.6 % (0.0-10.0); NEUT # 1.4 K/uL (1.8-7.0); NEUT % 38.3 % (50.0-75.0); NRBC % 0.3 % (0.0-0.0); RED CELL DISTRIBUTION WIDTH 19.3 % (11.5-14.5); WHITE BLOOD COUNT 3.7 K/uL (4.8-10.8)
--- NOTE | 2017-05-20 15:58 | PCM.RRT ---
<Jam Bean - Last Filed: 05/20/17 16:08> PANEL WIRER Nurse Assessment - Situation Location: [address] [place] [address] PANEL WIRER Reason for Call: Change in Mental Status PANEL WIRER Called By: RN, Other Disciplines - IV IV Inserted during PANEL WIRER?: No - Respiratory Oxygen Delivery Method: Nasal Cannula - Diagnostic Test Ordered EKG: Yes - Stat Labs Ordered PANEL WIRER Stat Labs Ordered: CBC, PT/PTT, TROPONIN PANEL WIRER Other Labs Ordered: CMP CPR started during PANEL WIRER?: No - Vital Signs Vital Signs: Rapid Response Vital Sign Blood Pressure 142/102 Pulse Rate 64 Respiratory Rate 22 Oxygen Saturation 100 - Time PANEL WIRER Ended Time PANEL WIRER Ended: 13:35 - Vital Signs at end of PANEL WIRER Vital Signs at end of PANEL WIRER: Rapid Response End Vital Sign Blood Pressure 127/80 Pulse Rate 64 Respiratory Rate 16 O2 Sat by Pulse Oximetry 100 - Recommendations PANEL WIRER Level of Care Recommendations: Remain in current setting I.Reason for PANEL WIRER - A) Acute Change in Patient: (Select all that apply): Acute change in mental status Subjective: Syncope - Neurological Status (Select all that apply): Alert, Follows Commands, Weakness - Constitutional Appears: Other (weak. pallor) - Eyes Eye Exam: EOMI - Respiratory Exam Respiratory Exam: NORMAL BREATHING PATTERN. absent: Respiratory Distress - Cardiovascular Exam Cardiovascular Exam: +S1, +S2. absent: Gallop - GI/Abdominal Exam GI & Abdominal Exam: Soft. absent: Tenderness - Neurological Exam Neurological Exam: Alert, Awake, Motor Sensory Deficit - Extremities Exam Extremities Exam: Normal Capillary Refill Plan - Assessment of Findings&Treatment Plan A&P 67 y/o M called PANEL WIRER because of syncope episode during OT session that resolved spontaneously after a few seconds. Feeling dizzy at the time of exam and weak. Previous records reviewed Initial VS: BP 142/102, HR 69, accucheck unremarkable Ordered: EKG, CBC, CMP, Phosp, Mg, Coags, troponin, Echo, orthostatics during next PT sessions EKG nonspecific T waves changes, no significant changes from previous EKG. Repeat VS: BP 127/80, HR 59 R/O ACS vs CVA vs Orthostatic hypotension Will f/u labs Discussed with Dr Valladares <Alisson Valladares - Last Filed: 05/20/17 16:17> PANEL WIRER Nurse Assessment - Vital Signs Vital Signs: Rapid Response Vital Sign Blood Pressure 142/102 Pulse Rate 64 Respiratory Rate 22 Oxygen Saturation 100 - Vital Signs at end of PANEL WIRER Vital Signs at end of PANEL WIRER: Rapid Response End Vital Sign Blood Pressure 127/80 Pulse Rate 64 Respiratory Rate 16 O2 Sat by Pulse Oximetry 100 Attending/Attestation - Attestation I have personally seen and examined this patient.: Yes I have fully participated in the care of the patient.: Yes I have reviewed all pertinent clinical information, including history, physical exam and plan: Yes Notes (Text): 05/20/17 16:16 seen examined discussed with residents. agree with findings and plan as above. will follow up all labs and studies.
[2017-05-20 16:16] LABS: PARTIAL THROMBOPLASTIN TIME 61.2 Seconds (25.6-37.1)
--- NOTE | 2017-05-20 16:23 | CP.PCM.DIS ---
Provider - Provider Date of Admission: 05/05/17 16:08 Attending physician: Alisson Valladares DO Consults: 05/05/17 17:38 Case Management Referral Routine Comment: Physician Instructions: Reason For Exam: s/p Right MCA Stroke Reason for Referral: Discharge Planning Time Spent in preparation of Discharge (in minutes): 30 Hospital Course - Lab Results Lab Results: Most Recent Lab Values WBC 3.7 K/uL (4.8-10.8) L 05/20/17 15: RBC 4.37 Mil/uL (4.40-5.90) L 05/20/17 15:27 Hgb 13.8 g/dL (12.0-18.0) 05/20/17 15: Hct 40.1 % (35.0-51.0) 05/20/17 15: MCV 91.8 fl (80.0-94.0) 05/20/17 15: MCH 31.5 pg (27.0-31.0) H 05/20/17 15: MCHC 34.3 g/dL (33.0-37.0) 05/20/17 15: RDW 19.3 % (11.5-14.5) H 05/20/17 15:27 Plt Count 88 K/uL (130-400) L D 05/20/17 15: MPV 9.9 fl (7.2-11.7) 05/20/17 15:27 Neut % (Auto) 38.3 % (50.0-75.0) L 05/20/17 15: Lymph % (Auto) 45.7 % (20.0-40.0) H 05/20/17 15:27 Moffat % (Auto) 13.6 % (0.0-10.0) H 05/20/17 15: Eos % (Auto) 1.9 % (0.0-4.0) 05/20/17 15: Baso % (Auto) 0.5 % (0.0-2.0) 05/20/17 15:27 Neut # 1.4 K/uL (1.8-7.0) L 05/20/17 15: Lymph # 1.7 K/uL (1.0-4.3) 05/20/17 15:27 Moffat # 0.5 K/uL (0.0-0.8) 05/20/17 15:27 Eos # 0.1 K/uL (0.0-0.7) 05/20/17 15:27 Baso # 0.0 K/uL (0.0-0.2) 05/20/17 15:27 PT 11.6 Seconds (9.8-13.1) 05/20/17 15:47 INR 1.0 (0.9-1.2) 05/20/17 15:47 APTT 61.2 Seconds (25.6-37.1) H 05/20/17 15:47 Sodium 127 mmol/l (132-148) L 05/20/17 15:27 Potassium 3.8 MMOL/L (3.6-5.0) 05/20/17 15:27 Chloride 95 mmol/L (98-107) L 05/20/17 15:27 Carbon Dioxide 23 mmol/L (22-30) 05/20/17 15:27 Anion Gap 13 (10-20) 05/20/17 15:27 BUN 12 mg/dl (9-20) 05/20/17 15:27 Creatinine 1.4 mg/dl (0.8-1.5) 05/20/17 15:27 Est GFR ( Amer) > 60 05/20/17 15:27 Est GFR (Non-Af Amer) 51 05/20/17 15:27 POC Glucose (mg/dL) 110 mg/dL (65-110) 05/20/17 13:24 Random Glucose 121 mg/dL (75-110) H 05/20/17 15:27 Calcium 9.5 mg/dL (8.4-10.2) 05/20/17 15:27 Phosphorus 2.4 mg/dl (2.5-4.5) L 05/20/17 15:27 Magnesium 1.7 MG/DL (1.6-2.3) 05/20/17 15:27 Total Bilirubin 0.3 mg/dl (0.2-1.3) 05/20/17 15:27 AST 61 U/L (17-59) H 05/20/17 15:27 ALT 53 U/L (21-72) 05/20/17 15:27 Alkaline Phosphatase 79 U/L (38-126) 11/24/17 15:27 Troponin I 0.1280 ng/mL (0.00-0.120) H* 05/20/17 15:27 Total Protein 7.3 G/DL (6.3-8.2) 05/20/17 15:27 Albumin 4.1 g/dL (3.5-5.0) 05/20/17 15:27 Globulin 3.2 gm/dL (2.2-3.9) 05/20/17 15: Albumin/Globulin Ratio 1.3 (1.0-2.1) 05/20/17 15:27 Prostate Specific Ag 1.68 ng/ML (0.00-4.0) 05/19/17 06:15 Urine Color Yellow (YELLOW) 05/06/17 18:48 Urine Clarity Clear (Clear) 05/06/17 18:48 Urine pH 7.0 (5.0-8.0) 05/06/17 18:48 Ur Specific [place] 1.008 (1.003-1.030) 05/06/17 18:48 Urine Protein 30 mg/dL (NEGATIVE) 05/06/17 18:48 Urine Glucose (UA) Neg mg/dL (Normal) 05/06/17 18:48 Urine Ketones Trace mg/dL (NEGATIVE) 05/06/17 18:48 Urine Blood Negative (NEGATIVE) 05/06/17 18:48 Urine Nitrate Negative (NEGATIVE) 05/06/17 18:48 Urine Bilirubin Negative (NEGATIVE) 05/06/17 18:48 Urine Urobilinogen 4.0 mg/dL (0.2-1.0) 05/06/17 18:48 Ur Leukocyte Esterase Neg Misty/uL (Negative) 05/06/17 18:48 Urine RBC (Auto) 2 /hpf (0-3) 05/06/17 18:48 Urine Microscopic WBC < 1 /hpf (0-5) 05/06/17 18:48 Ur Squamous Epith Cells < 1 /hpf (0-5) 05/06/17 18:48 Urine Bacteria Rare (<OCC) 05/06/17 18:48 Phenytoin 13.0 ug/ML (10-20) 05/06/17 05:20 - Hospital Course Hospital Course: 67-year-old male with past medical history of prior CVA, 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 Patient initially presented with left-sided weakness, aphasia, and left lateral gaze. In the emergency room shortly after, patient was able to look straight ahead and speak with me mild dysarthria, slurred speech and had some left-sided weakness with left lateral gaze. Patient transferred to acute rehabilitation for further rehabilitation needs. Patient participated in physical therapy well, has been improving his L sided weakness and neglect. Patient was medically managed for acute CVA, post stoke depression , HTN, hx renal mass, focal seizures, vitamin D deficiency. 05/20/17 SALES AND LEASING CONSULTANT was called for brief syncopal episode while patient was sitting in chair during rehab. He denies any chest pain or shortness of breath. Patient mentation is at baseline. Troponin was positive 0.1280, EKG had no significant changes. No active chest pain, dypsnea, malaise. We will discharge patient to emergency room to be placed on observation on telemetry to rule out ACS. Discharge Exam - Head Exam Head Exam: ATRAUMATIC, NORMOCEPHALIC - Eye Exam Eye Exam: EOMI, Normal appearance - ENT Exam ENT Exam: Mucous Membranes Dry, Normal Oropharynx - Respiratory Exam Respiratory Exam: Clear to PA & Lateral, NORMAL BREATHING PATTERN. absent: Rales, Rhonchi - Cardiovascular Exam Cardiovascular Exam: REGULAR RHYTHM, +S1, +S2 - GI/Abdominal Exam GI & Abdominal Exam: Normal Bowel Sounds, Soft. absent: Mass, Tenderness - Extremities Exam Extremities exam: normal capillary refill, pedal pulses present - Back Exam Back exam: absent: CVA tenderness (L), CVA tenderness (R) - Neurological Exam Neurological exam: Alert, CN II-XII Intact - Psychiatric Exam Psychiatric exam: Flat Affect, Normal Mood - Skin Skin Exam: Dry, Warm Discharge Plan - Follow Up Plan Condition: GOOD Disposition: Trans to Other Acute Care Hosp
--- NOTE | 2017-05-20 22:46 | CP.PCM.PN ---
Subjective - Date & Time of Evaluation Date of Evaluation: 05/20/17 Time of Evaluation: 16:00 - Subjective Subjective: Patient is discharged after completely controlling his Left Hemiparesis and his dysarthria, no seizures. He is walking with help and his Left Hemiparesis is almost resolved. Objective - Vital Signs/Intake and Output Vital Signs (last 24 hours): Temp Pulse Resp BP Pulse Ox 98.0 F 68 20 120/80 96 05/19/17 19:15 05/20/17 14:00 05/19/17 19:15 05/20/17 14:00 05/20/17 08:44 - Labs Labs: 05/20/17 15:27 05/20/17 15:27 PT 11.6 Seconds (9.8-13.1) 05/20/17 15:47 INR 1.0 (0.9-1.2) 05/20/17 15:47 APTT 61.2 Seconds (25.6-37.1) H 05/20/17 15:47 Assessment and Plan (1) Brain mass Status: Acute (2) CVA (cerebral vascular accident) Status: Acute (3) Focal seizure Status: Acute (4) Headache Status: Acute (5) Intracranial bleed Status: Acute (6) Intracranial mass Status: Chronic (7) Left-sided weakness Status: Acute (8) Prophylactic measure Status: Acute
--- NOTE | 2017-05-20 23:17 | CP.PCM.PN ---
Subjective - Date & Time of Evaluation Date of Evaluation: 05/20/17 Time of Evaluation: 20:00 - Subjective Subjective: After doing an enquiry about the patient's condition he had an GLOBAL PRODUCT MANAGER call for a syncopal spell during OT. He was sent to the ER slightly lethargic, dizzy, weak. He was not reported to have any Abdominal tenderness. He received ER care and is to be readmitted this time to the Telemetry Unit on for further management. Objective - Vital Signs/Intake and Output Vital Signs (last 24 hours): Temp Pulse Resp BP Pulse Ox 98.0 F 68 20 120/80 96 05/19/17 19:15 05/20/17 14:00 05/19/17 19:15 05/20/17 14:00 05/20/17 08:44 - Labs Labs: 05/20/17 15:27 05/20/17 15:27 PT 11.6 Seconds (9.8-13.1) 05/20/17 15:47 INR 1.0 (0.9-1.2) 05/20/17 15:47 APTT 61.2 Seconds (25.6-37.1) H 05/20/17 15:47 Assessment and Plan (1) Brain mass Status: Acute (2) CVA (cerebral vascular accident) Status: Acute (3) Focal seizure Assessment & Plan: He had a mild syncopal spell while receiving OT. Status: Acute (4) Headache Status: Acute (5) Intracranial bleed Status: Acute (6) Intracranial mass Status: Chronic (7) Left-sided weakness Assessment & Plan: Improved significantly. Status: Acute (8) Prophylactic measure Status: Acute
--- NOTE | 2017-05-21 12:31 | CARD ---
APPROVED REPORT EXAM: Two-dimensional and M-mode echocardiogram with Doppler and color Doppler. Other Information Quality : AverageRhythm : NSR Technically limited study due to POOR ECHO WINDOW INDICATION Syncope 2D DIMENSIONS IVSd1.23 (0.7-1.1cm)LVDd4.32 (3.9-5.9cm) LVOT Diameter2.27 (1.8-2.4cm)PWd1.25 (0.7-1.1cm) IVSs1.42 (0.8-1.2cm)LVDs3.44 (2.5-4.0cm) FS (%) 20.4 %PWs1.59 (0.8-1.2cm) M-Mode DIMENSIONS Left Atrium (MM)2.65 (2.5-4.0cm)Aortic Root3.18 (2.2-3.7cm) Aortic Cusp Exc.1.76 (1.5-2.0cm) Mitral Valve MV E Kdiayktn73.7cm/sMV DECEL [id number] A Sexssppi66.7cm/s MV LIK599ciL/A ratio0.6MVA (PHT)2.18cm2 TDI E/Lateral E'0.0E/Medial E'0.0 LEFT VENTRICLE The left ventricle is normal size. There is normal left ventricular wall thickness. LVEF could not be assesed Over all LV systolic performance appeared preserved. Individual segmental wall motion could not be evaluated Transmitral Doppler flow pattern is Grade I-abnormal relaxation pattern. RIGHT VENTRICLE The right ventricle is normal size. The right ventricular systolic function is normal. ATRIA The left atrium size is normal. The right atrium size is normal. AORTIC VALVE Poorly visualised. No aortic regurgitation is present. There is no aortic valvular stenosis. MITRAL VALVE The mitral valve is normal in structure. There is no mitral valve stenosis. There is no mitral valve regurgitation noted. TRICUSPID VALVE The tricuspid valve is normal in structure. There is no tricuspid valve regurgitation noted. PULMONIC VALVE The pulmonic valve is not well visualized. There is no pulmonic valvular regurgitation. GREAT VESSELS The aortic root is normal in size. The IVC is normal in size and collapses >50% with inspiration. PERICARDIAL EFFUSION The pericardium appears normal. <Conclusion> Echo window was extremely poor and the quality of the images was very poor. The left ventricle is normal size. Individual segmental wall motion could not be evaluated LVEF could not be assesed Over all LV systolic performance appeared preserved. Transmitral Doppler flow pattern is Grade I-abnormal relaxation pattern.
--- NOTE | 2017-05-21 12:48 | CARD ---
APPROVED REPORT EKG Measurement Heart [id number] VT 150P59 [id number] <Conclusion> Sinus rhythm with occasional premature ventricular complexes Nonspecific ST and T wave abnormality Abnormal ECG
--- NOTE | 2017-05-21 12:53 | CARD ---
APPROVED REPORT EKG Measurement Heart [id number] IL 146P70 [id number] <Conclusion> Sinus bradycardia Nonspecific ST and T wave abnormality Abnormal ECG
[2017-05-22] MEDS: diltiaZEM 240 mg/24 Hours CD Cap PO SCH (23:39)
[2017-05-22] MEDS: SUNITINIB MALATE PO SCH (23:42)
[2017-05-22] MEDS: Ergocalciferol 50,000 Intl Units Cap PO SCH (23:44)
--- NOTE | 2017-05-23 00:01 | CP.PCM.PN ---
Subjective - Date & Time of Evaluation Date of Evaluation: 05/22/17 Time of Evaluation: 23:20 - Subjective Subjective: Patient is back to the Rehab after his condition has improved after a syncopal spell he sustained while in Therapy. He is awake, alert, interactive, moving his left extremities. No documented seizures after his Syncopal spell that he had and for which he was evaluated at the ER and was admitted to [address] [place] [address] for 2 days. A cardiology consult is recommended to R/O Cardiac causes Syncope. We will get an EEG. Objective - Vital Signs/Intake and Output Vital Signs (last 24 hours): Temp Pulse Resp BP Pulse Ox 98.0 F 68 20 120/80 96 05/19/17 19:15 05/20/17 14:00 05/19/17 19:15 05/20/17 14:00 05/20/17 08:44 - Medications Medications: Current Medications Aspirin (Ecotrin) 81 mg PO DAILY [facility] Last Admin: 05/22/17 23:40 Dose: Not Given Atorvastatin Calcium (Lipitor) 20 mg PO HS [facility] Last Admin: 05/22/17 23:38 Dose: Not Given Calcium Carbonate (Oscal) 500 mg PO BIDWM [facility] Last Admin: 05/22/17 23:39 Dose: Not Given Diltiazem HCl (Cardizem Cd) 240 mg PO DAILY [facility] Last Admin: 05/22/17 23:39 Dose: Not Given Ergocalciferol (Drisdol 50,000 Intl Units Cap) 1 cap PO Q7D [facility] Last Admin: 05/22/17 23:44 Dose: Not Given Famotidine (Pepcid) 20 mg PO BID [facility] Last Admin: 05/22/17 23:42 Dose: Not Given Folic Acid (Folic Acid) 1 mg PO DAILY [facility] Last Admin: 05/22/17 23:41 Dose: Not Given Heparin Sodium (Porcine) (Heparin) 5,000 units SC Q12 [facility] PRN Reason: Protocol Last Admin: 05/22/17 23:37 Dose: Not Given Home Med (Sunitinib Malate [Sutent]) 50 mg PO DAILY [facility] Last Admin: 05/22/17 23:42 Dose: Not Given Hydralazine HCl (Apresoline) 25 mg PO Q8H [facility] Last Admin: 05/22/17 23:55 Dose: Not Given Lactulose (Enulose) 20 gm PO BID PRN PRN Reason: Constipation Lorazepam (Ativan) 1 mg IM Q4H PRN PRN Reason: Agitation Losartan Potassium (Cozaar) 100 mg PO DAILY [facility] Last Admin: 05/22/17 23:40 Dose: Not Given Polyethylene Glycol (Miralax) 17 gm PO DAILY PRN PRN Reason: Constipation Last Admin: 05/09/17 09:26 Dose: 17 gm Quetiapine Fumarate (Seroquel) 12.5 mg PO BID PRN PRN Reason: Agitation Sertraline HCl (Zoloft) 12.5 mg PO DAILY [facility] Last Admin: 05/22/17 23:43 Dose: Not Given Topiramate (Topamax) 75 mg PO BID [facility] Last Admin: 05/22/17 23:43 Dose: Not Given - Labs Labs: 05/20/17 15:27 05/20/17 15:27 PT 11.6 Seconds (9.8-13.1) 05/20/17 15:47 INR 1.0 (0.9-1.2) 05/20/17 15:47 APTT 61.2 Seconds (25.6-37.1) H 05/20/17 15:47 Assessment and Plan (1) Brain mass Status: Acute (2) CVA (cerebral vascular accident) Status: Acute (3) Focal seizure Status: Acute (4) Headache Status: Acute (5) Intracranial bleed Status: Acute (6) Intracranial mass Status: Chronic (7) Left-sided weakness Status: Acute (8) Prophylactic measure Status: Acute
[2017-05-23] MEDS: Enoxaparin 40 mg Syringe SC SCH (08:46)
[2017-05-23] MEDS: diltiaZEM 240 mg/24 Hours CD Cap PO SCH (08:47)
[2017-05-23] MEDS: SUNITINIB MALATE PO SCH (08:49)
--- NOTE | 2017-05-23 11:28 | CP.PCM.PN ---
Subjective - Date & Time of Evaluation Date of Evaluation: 05/23/17 Time of Evaluation: : - Subjective Subjective: patient seen and examined at bedside status post CVA and syncopal episodes likely vasovagal.patient doing well today, tolerating physical therapy well, participating. Hemodynamically stable and no acute distress. Objective - Vital Signs/Intake and Output Vital Signs (last 24 hours): Temp Pulse Resp BP Pulse Ox 97.7 F 63 20 131/76 98 05/23/17 08:00 05/23/17 08:47 05/23/17 08:00 05/23/17 08:47 05/23/17 08:00 Intake and Output: Physical exam: Constitutional- cooperative, awake, alert. Head- NCAT, PERRL Eye- PERRL, normal accommodation ENT- normal exam, MMM. Neck- normal inspection, supple, no JVD Respiratory- CTAB, no wheezes rales rhonchi Cardiovascular- RRR, +S1, +S2 no MRG GI/Abdominal- normal bowel sounds, soft, no mass, no hsm Skin- warm, dry Extremities Exam- normal capillary refill, normal inspection Neurological Exam- alert, continues to have some left-sided neglect, mild left- sided weakness improving Psych- normal mood, normal affect - Medications Medications: Current Medications Aspirin (Ecotrin) 81 mg PO DAILY [facility] Last Admin: 05/23/17 08:46 Dose: 81 mg Atorvastatin Calcium (Lipitor) 20 mg PO HS [facility] Last Admin: 05/22/17 23:38 Dose: Not Given Calcium Carbonate (Oscal) 500 mg PO BIDWM [facility] Last Admin: 05/23/17 08:46 Dose: 500 mg Diltiazem HCl (Cardizem Cd) 240 mg PO DAILY [facility] Last Admin: 05/23/17 08:47 Dose: 240 mg Enoxaparin Sodium (Lovenox) 40 mg SC DAILY [facility] PRN Reason: Protocol Last Admin: 05/23/17 08:46 Dose: 40 mg Ergocalciferol (Drisdol 50,000 Intl Units Cap) 1 cap PO Q7D [facility] Last Admin: 05/22/17 23:44 Dose: Not Given Famotidine (Pepcid) 20 mg PO BID [facility] Last Admin: 05/23/17 08:46 Dose: 20 mg Folic Acid (Folic Acid) 1 mg PO DAILY [facility] Last Admin: 05/23/17 08:47 Dose: 1 mg Home Med (Sunitinib Malate [Sutent]) 50 mg PO DAILY [facility] Last Admin: 05/23/17 08:49 Dose: Not Given Hydralazine HCl (Apresoline) 50 mg PO Q8 [facility] Last Admin: 05/23/17 06:39 Dose: 50 mg Lactulose (Enulose) 20 gm PO BID PRN PRN Reason: Constipation Losartan Potassium (Cozaar) 100 mg PO DAILY [facility] Last Admin: 05/23/17 08:47 Dose: 100 mg Polyethylene Glycol (Miralax) 17 gm PO DAILY PRN PRN Reason: Constipation Last Admin: 05/09/17 09:26 Dose: 17 gm Topiramate (Topamax) 75 mg PO BID [facility] Last Admin: 05/23/17 08:47 Dose: 75 mg - Labs Labs: 05/20/17 15:27 05/20/17 15:27 PT 11.6 Seconds (9.8-13.1) 05/20/17 15:47 INR 1.0 (0.9-1.2) 05/20/17 15:47 APTT 61.2 Seconds (25.6-37.1) H 05/20/17 15:47 Assessment and Plan - Assessment and Plan (Free Text) Plan: 67-year-old male with past medical history of prior CVA, 2 brain masses currently treated with chemotherapy status post right posterior parietal craniotomy in August 2016, renal mass, hypertension, hyperlipidemia sent from [facility] after acute CVA. Patient initially presented with left-sided weakness, aphasia, and left lateral gaze. In the emergency room shortly after, patient was able to look straight ahead and speak with me mild dysarthria, slurred speech and had some left-sided weakness with left lateral gaze. Patient transferred to acute rehabilitation for further rehabilitation needs. Patient participated in physical therapy well, has been improving his L sided weakness and neglect. Patient was medically managed for acute CVA, post stoke depression, HTN, hx renal mass, focal seizures, vitamin D deficiency. 05/20/17 - CRYSTAL SLICER was called for brief syncopal episode while patient was sitting in chair during rehab. He denies any chest pain or shortness of breath. Patient mentation is at baseline. Troponin was positive 0.1280, EKG had no significant changes. No active chest pain, dypsnea, malaise. Pt placed on observation on telemetry to rule out ACS, for repeat CT head eval for slightly increased lethargy. Neuro exam was baseline, no new focal deficits, mentation also at baseline. Pt also hyponatremic on CRYSTAL SLICER labs. Likely secondary to dehydration. Patient significantly improved after hydration. Patient was CRYSTAL SLICER'd last night for another episode of syncope while he was having a bowel movement. Bradycardic at the time 55 bpm. likely vasovagal, cardiology consult pending. Patient to be discharged back to acute rehab upon evaluation by Cardiology. Stable per cardiology. D/C to rehab. Dx: vasovagal syncope patient transferred back to rehab for further rehab needs stable SYNCOPAL EPISODE ELEVATED TROPONIN Prior imaging studies at [facility] negative, echo read pending chest pain free Troponin 0.128, trend enzymes and EKG. Trended down, likely demand ischemia. No further cardio workupindicated. no significant changes on EKG, repeat in AM concern for ACS consult CARDIOLOGY appreciated and followed trend another Troponin, likely secondary to demand ischemia ELEVATED TSH Eval FREE T3/T4 for hypothyroidism INCREASED LETHARGY/MILD AMS 2/2 hyponatremia? centrally acting agents? - resolved, this was likely secondary to hyponatremia and volume depletion. HOLD centrally acting agents, Seroquel, Sertraline, Ativan, will continue Topamax for focal seizures for now Possibly secondary to hyponatremia Repeat CT head NEG No focal neuro deficits on physical exam Mentation and orientation generally at baseline, however less alert HYPONATREMIA - resolved. was likely secondary to volume depletion. 2/2 SIADH SSRI? HOLD Sertraline Send Urine Lytes, Urine and Serum Osm mild hydration with NS @ 100 cc/hr THROMBOCYTOPENIA Platelet 88 yesterday, continues to be low check manual count change Heparin to lovenox monitor ACUTE CVA patient with left-sided weakness, left neglect, dysarthria - left sided weakness and neglect improving with therapy MRI at [facility] found acute or subacute brain infarction to posterior right MCA distribution Patient neurologist was Dr. Ewing following on topomax 75 mg po Q12 for seizure prevention continue aspirin 81 mg daily, Statin and BP control continue PT, OT, speech therapy. Physiatry consult appreciated safety precautions REPEAT CT OF HEAD POST STROKE DEPRESSION psych consulted started on seroquel, Zoloft WILL HOLD HYPERTENSION controlled With slightly elevated BP during PT. No need for dose adjustment continue diltiazem, losartan, hydralazine HISTORY RENAL MASS Brain masses currently on chemotherapy continue current therapy Chemo drug q 2 weeks next May 4. Family to order. FOCAL SEIZURES seizure free on Topomax . Increased dose to 75 mg po BID VITAMIN D DEFICIENCY pt initiated on Ergocalciferol and Calcium Carbonate per neuro VTE prophylaxis changed to lovenox for thrombocytopenia
--- NOTE | 2017-05-23 13:11 | CP.PCM.PN ---
Subjective - Date & Time of Evaluation Date of Evaluation: 05/23/17 Time of Evaluation: 12:09 - Subjective Subjective: Doing well walking with help, raising his left Upper Extremity high. Moving the left lower extremity and walking on it more stable than before. No Left side neglect. No Seizures. Normal cognition. Speech is coherent. Objective - Vital Signs/Intake and Output Vital Signs (last 24 hours): Temp Pulse Resp BP Pulse Ox 97.7 F 63 20 131/76 98 05/23/17 08:00 05/23/17 08:47 05/23/17 08:00 05/23/17 08:47 05/23/17 08:00 - Medications Medications: Current Medications Aspirin (Ecotrin) 81 mg PO DAILY [facility] Last Admin: 05/23/17 08:46 Dose: 81 mg Atorvastatin Calcium (Lipitor) 20 mg PO HS [facility] Last Admin: 05/22/17 23:38 Dose: Not Given Calcium Carbonate (Oscal) 500 mg PO BIDWM [facility] Last Admin: 05/23/17 08:46 Dose: 500 mg Diltiazem HCl (Cardizem Cd) 240 mg PO DAILY [facility] Last Admin: 05/23/17 08:47 Dose: 240 mg Enoxaparin Sodium (Lovenox) 40 mg SC DAILY [facility] PRN Reason: Protocol Last Admin: 05/23/17 08:46 Dose: 40 mg Ergocalciferol (Drisdol 50,000 Intl Units Cap) 1 cap PO Q7D [facility] Last Admin: 05/22/17 23:44 Dose: Not Given Famotidine (Pepcid) 20 mg PO BID [facility] Last Admin: 05/23/17 08:46 Dose: 20 mg Folic Acid (Folic Acid) 1 mg PO DAILY [facility] Last Admin: 05/23/17 08:47 Dose: 1 mg Home Med (Sunitinib Malate [Sutent]) 50 mg PO DAILY [facility] Last Admin: 05/23/17 08:49 Dose: Not Given Hydralazine HCl (Apresoline) 50 mg PO Q8 [facility] Last Admin: 05/23/17 06:39 Dose: 50 mg Lactulose (Enulose) 20 gm PO BID PRN PRN Reason: Constipation Losartan Potassium (Cozaar) 100 mg PO DAILY [facility] Last Admin: 05/23/17 08:47 Dose: 100 mg Polyethylene Glycol (Miralax) 17 gm PO DAILY PRN PRN Reason: Constipation Last Admin: 05/09/17 09:26 Dose: 17 gm Topiramate (Topamax) 100 mg PO BID [facility] - Labs Labs: 05/20/17 15:27 05/20/17 15:27 PT 11.6 Seconds (9.8-13.1) 05/20/17 15:47 INR 1.0 (0.9-1.2) 05/20/17 15:47 APTT 61.2 Seconds (25.6-37.1) H 05/20/17 15:47 Assessment and Plan (1) Brain mass Status: Acute (2) CVA (cerebral vascular accident) Status: Acute (3) Focal seizure Status: Acute (4) Headache Status: Acute (5) Intracranial bleed Status: Acute (6) Intracranial mass Status: Chronic (7) Left-sided weakness Status: Acute (8) Prophylactic measure Status: Acute
--- NOTE | 2017-05-23 13:18 | PSY.TMCNF ---
Nursing - Vital Signs Vital Signs (Last 8 hours): Vital Signs 05/23/17 05/23/17 05/23/17 06:39 08:00 08:47 Temperature 97.7 F Pulse Rate 58 L 63 63 Respiratory 20 Rate Blood Pressure 130/89 131/76 131/76 O2 Sat by Pulse 98 Oximetry Pain: 0 - Precautions: Precautions: Fall Prevention - Medications/Other Issues Comment: Pt at moderate nutritional risk. goals: 1. Pt will maintain within 2- 3 lbs of current body weight.(met, continue). 2. Pt to consume 75-100% of meals(partially met, continue). Follow-up due 05/24/2017 - Consults Comment: Dr. Ewing 05/08. 05/09 - Toileting Toileting: Maximal Assistance - Bladder Management Bladder Pattern: Normal Voiding Method: Toilet - Bowel Management Bowel Pattern: Constipated Bowel Management: Minimal Assistance Frequency of Accidents: continent - Transfers Transfers: Contact Guard - ADL's ADL's: Minimal Assistance - Pain Management Comments: denies - Patient/Family Teaching Comments: AE hose off at bedtme - Goals/Time Frame Comments: fall prevention - Provider Provider: SARIAH Lazaro Physical Therapy - Bed Mobility Bed Mobility: Verbal Cues, Contact Guard - Transfers Sit to Stand: Verbal Cues, Contact Guard - Ambulation Level of Assistance: Contact Guard Distance (ft.): 250 Assistive Devices: N/A - Stair Negotiation Stairs: Level of Assistance: Contact Guard Number of Stairs: 24 - Standing Balance Static Stand: Supervision Dynamic Stand: Contact Guard Assist, Minimal Assistance - Pain Pain (assessed during therapy session): 0 Comment: denies - Insight/Carryover Insight/Carryover: Fair - Patient/Family Education Comment: therapy schedule, POC, goals, mobility, safety - Assessment/Plan Assessment: Mr. Jarrett continues to make great progress in therapy. Patient shows improvement in his left sided attention as well as command following with this bid writer. Patient tolerates increased therapy and has improved orientation. Patient continues to require cues to attend to left side during functional mobility and requires assistance due to motor perseverations between functional tasks without rest breaks. PT recommends continued skilled therapy services to maximize safety and independence with all mobility prior to home discharge with 24 hour care ad home Pt services. - Goals Timeframe: 7 days Goals: bed mobility with mod I. transfers with CS. gait x 200 feet with without collisions with CS. 1 flight of steps with single rail with CS. family training to be initiated with - Provider License Number: [id number] Occupational Therapy - Arousal/Attention/Orientation Patient Orientation: Person, Place - ADL/IADL Self Feeding: Supervision, Verbal Cues, Set-up Help Grooming: Supervision, Verbal Cues, Set-up Help Bathing-Upper Extremity: Verbal Cues, Set-up Help, Moderate Assistance Bathing-Lower Extremity: Verbal Cues, Set-up Help, Moderate Assistance Dressing-Upper Extremity: Verbal Cues, Set-up Help, Minimal Assistance, Moderate Assistance Dressing-Lower Extremity: Verbal Cues, Set-up Help, Moderate Assistance - Sitting Balance Static Sitting: Supervision Dynamic Sitting: Reaches across midline, Reaches out of base of support, Reaches within base of support, Contact Guard Assist, Minimal Assistance Comment: seated at edge of bed - Transfers Wheelchair to Bed Transfers: Verbal Cues, Set-up Help, Contact Guard, Minimal Assistance Toilet Transfers: Verbal Cues, Set-up Help, Contact Guard, Minimal Assistance - Wheelchair Management Level of Assistance: Not Applicable - Upper Extremity Status Right Upper Extremity Comment: AROM is WNLs Left Upper Extremity Comment: AROM is WFLs--with impaired gross/fine motor coordination - Pain Pain (assessed during therapy session): 0 Comment: denies - Insight/Carryover Insight/Carryover: Fair - Patient/Family Education Comment: therapy schedule, POC, goals, mobility, safety - Assessment/Plan Assessment: Mr. Jarrett continues to make great progress in therapy. Patient shows improvement in his left sided attention as well as command following with this bid writer. Patient tolerates increased therapy and has improved orientation. Patient continues to require cues to attend to left side during functional mobility and requires assistance due to motor perseverations between functional tasks without rest breaks. PT recommends continued skilled therapy services to maximize safety and independence with all mobility prior to home discharge with 24 hour care ad home Pt services. - Goals Timeframe: 7 days Goals: bed mobility with mod I. transfers with CS. gait x 200 feet with without collisions with CS. 1 flight of steps with single rail with CS. family training to be initiated with - Provider Therapist: Arun FLETCHER/[facility] - Consult Information Patient on Program: Yes Medical Diagnosis: CVA Treatment Diagnosis: moderate-severe cognitive deficits - Assessment Problem Solving Impairment: Severe Memory Impairment: Severe - Plan Assessment: Mr. Jarrett continues to make great progress in therapy. Patient shows improvement in his left sided attention as well as command following with this bid writer. Patient tolerates increased therapy and has improved orientation. Patient continues to require cues to attend to left side during functional mobility and requires assistance due to motor perseverations between functional tasks without rest breaks. PT recommends continued skilled therapy services to maximize safety and independence with all mobility prior to home discharge with 24 hour care ad home Pt services. Plan: Continue Speech/Language Therapy - Provider Therapist: Osiris Childress License Number: [id number] Recreational Therapy - Participation Participation: Monitors His/Her Own Leisure Time - Attendance Attendance: Daily - Activities Leisure Activities: Television - Socialization Level of Socialization: Initiates/interacts with caregivers but not with peer, Isolate by choice, Responds freely, but does not initiate, Requires 1:1 guidance to respond, Minimal initiation of interaction to request basic needs - Assessment Assessment/Plan: Mr. Jarrett continues to make great progress in therapy. Patient shows improvement in his left sided attention as well as command following with this bid writer. Patient tolerates increased therapy and has improved orientation. Patient continues to require cues to attend to left side during functional mobility and requires assistance due to motor perseverations between functional tasks without rest breaks. PT recommends continued skilled therapy services to maximize safety and independence with all mobility prior to home discharge with 24 hour care ad home Pt services. - Provider Therapist: Gabriella Newman, PAWN BROKER #[id number] Nutrition - Current Diet Current Diet/ Supplement/ Feedings: Heart healthy diet ensure plus 1 per day - Appetite Percent Meal Consumed: 50-74% - Comments Comments: AE hose off at bedtme - Assessment/Goals/Time Frame Assessment/Goals/Time Frame: Pt at moderate nutritional risk. goals: 1. Pt will maintain within 2-3 lbs of current body weight.(met, continue). 2. Pt to consume 75-100% of meals(partially met, continue). Follow-up due 05/24/2017 - Provider Provider: Marielle Dyer RD Case Management - Psychosocial Assessment Support Systems: Ana Taylor (spouse)- [phone] Psychological Interventions/Needs: Patient is alert with intermittent agitation and confusion requiring redirection and 1:1 Discharge Concerns: Patient currently requiring min-mod A for functional mobility Patient/Family Meeting: CM met with patient/spouse and rehab team via certified [employer] Pashto speaking audio production manager Patricia #[id number] Intervention/Goal/Outcome:: 1. Goal: 24 hour supervision? 2. Plan: Home with VNS and family support vs FERMIN dependent on progress in rehab. 3. DME needs. 4. caregiver training. 5. f/u appts. 6. CM to assist spouse in completing FMLA paperwork. 7. tentative discharge date: 05/29/2017 - Discharge Plan Discharge Plan: Home with services, Subacute care - Provider Provider: TORIN Adames, [facility]OSP[facility] License Number: [id number] Rehabilitation Plan - Treatment Plan Treatment Plan: Physical Therapy, Occupational Therapy, Speech, Dietary, Patient /Family Education - Recommendation Recommendation: Physical Therapy, Occupational Therapy, Speech, Dietary, Patient /Family Education - Discharge Plan Estimated Date of Discharge: 05/29/17 Discharge to: Home
--- NOTE | 2017-05-23 18:34 | CP.PCM.PN ---
Subjective - Date & Time of Evaluation Date of Evaluation: 05/23/17 Time of Evaluation: 18:33 - Subjective Subjective: Patient seen and doing much better since I had last seen Jorge now ambulating 250' without AD no pain at this point continue current care Objective - Vital Signs/Intake and Output Vital Signs (last 24 hours): Temp Pulse Resp BP Pulse Ox 97.7 F 62 20 133/81 98 05/23/17 08:00 05/23/17 13:41 05/23/17 08:00 05/23/17 13:41 05/23/17 08:00 - Medications Medications: Current Medications Aspirin (Ecotrin) 81 mg PO DAILY [facility] Last Admin: 05/23/17 08:46 Dose: 81 mg Atorvastatin Calcium (Lipitor) 20 mg PO HS [facility] Last Admin: 05/22/17 23:38 Dose: Not Given Calcium Carbonate (Oscal) 500 mg PO BIDWM [facility] Last Admin: 05/23/17 16:49 Dose: 500 mg Diltiazem HCl (Cardizem Cd) 240 mg PO DAILY [facility] Last Admin: 05/23/17 08:47 Dose: 240 mg Enoxaparin Sodium (Lovenox) 40 mg SC DAILY [facility] PRN Reason: Protocol Last Admin: 05/23/17 08:46 Dose: 40 mg Ergocalciferol (Drisdol 50,000 Intl Units Cap) 1 cap PO Q7D [facility] Last Admin: 05/22/17 23:44 Dose: Not Given Famotidine (Pepcid) 20 mg PO BID [facility] Last Admin: 05/23/17 16:48 Dose: 20 mg Folic Acid (Folic Acid) 1 mg PO DAILY [facility] Last Admin: 05/23/17 08:47 Dose: 1 mg Home Med (Sunitinib Malate [Sutent]) 50 mg PO DAILY [facility] Last Admin: 05/23/17 08:49 Dose: Not Given Hydralazine HCl (Apresoline) 50 mg PO Q8 [facility] Last Admin: 05/23/17 13:41 Dose: 50 mg Lactulose (Enulose) 20 gm PO BID PRN PRN Reason: Constipation Losartan Potassium (Cozaar) 100 mg PO DAILY [facility] Last Admin: 05/23/17 08:47 Dose: 100 mg Polyethylene Glycol (Miralax) 17 gm PO DAILY PRN PRN Reason: Constipation Last Admin: 05/09/17 09:26 Dose: 17 gm Topiramate (Topamax) 100 mg PO BID [facility] Last Admin: 05/23/17 16:48 Dose: 100 mg - Labs Labs: 05/20/17 15:27 05/20/17 15:27 PT 11.6 Seconds (9.8-13.1) 05/20/17 15:47 INR 1.0 (0.9-1.2) 05/20/17 15:47 APTT 61.2 Seconds (25.6-37.1) H 05/20/17 15:47
[2017-05-24 06:24] LABS: HEMATOCRIT 37.4 % (35.0-51.0); MEAN CELL VOLUME 92.4 fl (80.0-94.0); MEAN CORPUSCULAR HEMOGLOBIN 31.7 pg (27.0-31.0); MEAN CORPUSCULAR HGB CONC 34.3 g/dL (33.0-37.0); RED CELL DISTRIBUTION WIDTH 19.6 % (11.5-14.5); WHITE BLOOD COUNT 4.2 K/uL (4.8-10.8)
[2017-05-24 06:34] LABS: BLOOD UREA NITROGEN 8 mg/dl (9-20); CALCIUM 9.4 mg/dL (8.4-10.2); CARBON DIOXIDE 23 mmol/L (22-30); CHLORIDE 102 mmol/L (98-107); GFR AFRICAN-AMERICAN > 60; GLUCOSE,RANDOM 101 mg/dL (75-110); SODIUM 133 mmol/l (132-148)
[2017-05-24] MEDS: Enoxaparin 40 mg Syringe SC SCH (08:55)
[2017-05-24] MEDS: diltiaZEM 240 mg/24 Hours CD Cap PO SCH (09:07)
[2017-05-24 11:12] VITALS: RESP 20
--- NOTE | 2017-05-24 12:29 | CP.PCM.PN ---
Subjective - Date & Time of Evaluation Date of Evaluation: 05/20/17 Time of Evaluation: 07:00 - Subjective Subjective: no cute [id number] Objective - Vital Signs/Intake and Output Vital Signs (last 24 hours): Temp Pulse Resp BP Pulse Ox 97.6 F 70 20 144/77 97 05/24/17 10:00 05/24/17 10:00 05/24/17 10:00 05/24/17 10:00 05/24/17 10:00 - Medications Medications: Current Medications Aspirin (Ecotrin) 81 mg PO DAILY [facility] Last Admin: 05/24/17 08:55 Dose: 81 mg Atorvastatin Calcium (Lipitor) 20 mg PO HS [facility] Last Admin: 05/23/17 21:15 Dose: 20 mg Calcium Carbonate (Oscal) 500 mg PO BIDWM [facility] Last Admin: 05/24/17 08:54 Dose: 500 mg Diltiazem HCl (Cardizem Cd) 240 mg PO DAILY [facility] Last Admin: 05/24/17 09:07 Dose: 240 mg Enoxaparin Sodium (Lovenox) 40 mg SC DAILY [facility] PRN Reason: Protocol Last Admin: 05/24/17 08:55 Dose: 40 mg Ergocalciferol (Drisdol 50,000 Intl Units Cap) 1 cap PO Q7D [facility] Last Admin: 05/22/17 23:44 Dose: Not Given Famotidine (Pepcid) 20 mg PO BID [facility] Last Admin: 05/24/17 08:54 Dose: 20 mg Folic Acid (Folic Acid) 1 mg PO DAILY [facility] Last Admin: 05/24/17 08:54 Dose: 1 mg Home Med (Sunitinib Malate [Sutent]) 50 mg PO DAILY [facility] Last Admin: 05/23/17 08:49 Dose: Not Given Hydralazine HCl (Apresoline) 50 mg PO Q8 [facility] Last Admin: 05/24/17 06:21 Dose: 50 mg Lactulose (Enulose) 20 gm PO BID PRN PRN Reason: Constipation Losartan Potassium (Cozaar) 100 mg PO DAILY [facility] Last Admin: 05/24/17 09:07 Dose: 100 mg Polyethylene Glycol (Miralax) 17 gm PO DAILY PRN PRN Reason: Constipation Last Admin: 05/09/17 09:26 Dose: 17 gm Topiramate (Topamax) 100 mg PO BID [facility] Last Admin: 05/24/17 08:54 Dose: 100 mg - Labs Labs: 05/24/17 05:15 05/24/17 05:15 PT 11.6 Seconds (9.8-13.1) 05/20/17 15:47 INR 1.0 (0.9-1.2) 05/20/17 15:47 APTT 61.2 Seconds (25.6-37.1) H 05/20/17 15:47 - Head Exam Head Exam: ATRAUMATIC, NORMAL INSPECTION, NORMOCEPHALIC - Eye Exam Eye Exam: EOMI, Normal appearance, PERRL Pupil Exam: NORMAL ACCOMODATION - ENT Exam ENT Exam: Mucous Membranes Moist, Normal Exam - Neck Exam Neck Exam: Normal Inspection - Respiratory Exam Respiratory Exam: NORMAL BREATHING PATTERN - Cardiovascular Exam Cardiovascular Exam: REGULAR RHYTHM - GI/Abdominal Exam GI & Abdominal Exam: Normal Bowel Sounds - Rectal Exam Rectal Exam: NORMAL INSPECTION - Exam External exam: NORMAL EXTERNAL EXAM - Extremities Exam Extremities Exam: Normal Capillary Refill, Normal Inspection - Back Exam Back Exam: NORMAL INSPECTION - Neurological Exam Neurological Exam: Alert, Awake Neuro motor strength exam: Left Upper Extremity: 3, Right Upper Extremity: 3, Left Lower Extremity: 3, Right Lower Extremity: 3 - Psychiatric Exam Psychiatric exam: Normal Affect, Normal Mood - Skin Skin Exam: Dry, Intact Assessment and Plan (1) Brain mass Status: Acute (2) CVA (cerebral vascular accident) Assessment & Plan: pt, ot rec and speech Dr. 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
--- NOTE | 2017-05-24 13:53 | CP.PCM.PN ---
Subjective - Date & Time of Evaluation Date of Evaluation: 05/24/17 Time of Evaluation: 13:52 - Subjective Subjective: Patient seen in good spirits going outside for more advanced therapy and training set for d/c this weekend continue current care Objective - Vital Signs/Intake and Output Vital Signs (last 24 hours): Temp Pulse Resp BP Pulse Ox 97.6 F 69 20 155/82 H 97 05/24/17 10:00 05/24/17 13:33 05/24/17 10:00 05/24/17 13:33 05/24/17 10:00 - Medications Medications: Current Medications Aspirin (Ecotrin) 81 mg PO DAILY [facility] Last Admin: 05/24/17 08:55 Dose: 81 mg Atorvastatin Calcium (Lipitor) 20 mg PO HS [facility] Last Admin: 05/23/17 21:15 Dose: 20 mg Calcium Carbonate (Oscal) 500 mg PO BIDWM [facility] Last Admin: 05/24/17 08:54 Dose: 500 mg Diltiazem HCl (Cardizem Cd) 240 mg PO DAILY [facility] Last Admin: 05/24/17 09:07 Dose: 240 mg Enoxaparin Sodium (Lovenox) 40 mg SC DAILY [facility] PRN Reason: Protocol Last Admin: 05/24/17 08:55 Dose: 40 mg Ergocalciferol (Drisdol 50,000 Intl Units Cap) 1 cap PO Q7D [facility] Last Admin: 05/22/17 23:44 Dose: Not Given Famotidine (Pepcid) 20 mg PO BID [facility] Last Admin: 05/24/17 08:54 Dose: 20 mg Folic Acid (Folic Acid) 1 mg PO DAILY [facility] Last Admin: 05/24/17 08:54 Dose: 1 mg Home Med (Sunitinib Malate [Sutent]) 50 mg PO DAILY [facility] Last Admin: 05/23/17 08:49 Dose: Not Given Hydralazine HCl (Apresoline) 50 mg PO Q8 [facility] Last Admin: 05/24/17 13:33 Dose: 50 mg Lactulose (Enulose) 20 gm PO BID PRN PRN Reason: Constipation Losartan Potassium (Cozaar) 100 mg PO DAILY [facility] Last Admin: 05/24/17 09:07 Dose: 100 mg Polyethylene Glycol (Miralax) 17 gm PO DAILY PRN PRN Reason: Constipation Last Admin: 05/09/17 09:26 Dose: 17 gm Topiramate (Topamax) 100 mg PO BID [facility] Last Admin: 05/24/17 08:54 Dose: 100 mg - Labs Labs: 05/24/17 05:15 05/24/17 05:15 PT 11.6 Seconds (9.8-13.1) 05/20/17 15:47 INR 1.0 (0.9-1.2) 05/20/17 15:47 APTT 61.2 Seconds (25.6-37.1) H 05/20/17 15:47
--- NOTE | 2017-05-24 18:20 | CP.PCM.CON ---
History of Present Illness - History of Present Illness History of Present Illness: follow up consult this is a 67-year-old male with past medical history of prior CVA, 2 brain masses currently treated with chemotherapy status post right posterior parietal craniotomy in August 2016, renal mass, hypertension, hyperlipidemia presenting from [facility] after acute CVA. patient initially presented with left- sided weakness, aphasia, and left lateral gaze. in the emergency room shortly after, patient was able to look straight ahead and speak with me mild dysarthria , slurred speech and had some left-sided weakness with left lateral gaze. Patient admitted for further rehabilitation needs. pt has been prio evaluated by technical proposal writer for episode of agitation, placed on .5mg prn q12 for agitatio and zoloft 12.5mg daily for depression follow up consult requested as pt had another episode of agitation and confusion two days ago pt on evaluatuion at current mental status much better communication, cooperative smiling, slurred speech, no behavioral disturbances Past Patient History - Past Medical History & Family History Past Medical History?: Yes - Past Social History Smoking Status: Never Smoked - CARDIAC Hx Hypertension: Yes - NEUROLOGICAL Hx Neurological Disorder: Yes Other/Comment: BRAIN TUMOR - RENAL Hx Chronic Kidney Disease: Yes (CA Kidney) - ENDOCRINE/METABOLIC Hx Diabetes Mellitus Type 2: Yes - HEMATOLOGICAL/ONCOLOGICAL Hx Cancer: Yes - MUSCULOSKELETAL/RHEUMATOLOGICAL Hx Falls: No - PSYCHIATRIC Hx Substance Use: No - SURGICAL HISTORY Hx Surgeries: Yes Other/Comment: right nephroectomy, BRAIN TUMOR REMOVAL - ANESTHESIA Hx Anesthesia: Yes Hx Anesthesia Reactions: No Meds Home Medications: Home Medication List Medication Instructions Recorded Confirmed Type Calcium Carbonate [Oscal] 500 mg PO BIDWM tab 05/20/17 Rx Ergocalciferol [Drisdol 50,000 1 cap PO Q7D cap 05/20/17 Rx Intl Units Cap] LORazepam [Ativan] 1 mg IM Q4H PRN vial 05/20/17 Rx Lactulose [Enulose] 20 gm PO BID PRN udc 05/20/17 Rx Losartan [Cozaar] 100 mg PO DAILY tab 05/20/17 Rx Polyethylene Glycol 3350 [Miralax] 17 gm PO DAILY PRN packet 05/20/17 Rx Topiramate [Topamax] 75 mg PO BID tab 05/20/17 Rx hydrALAZINE [Apresoline] 25 mg PO Q8H tab 05/20/17 Rx Allergies/Adverse Reactions: Allergies Allergy/AdvReac Type Severity Reaction Status Date / Time No Known Allergies Allergy Verified 05/02/17 10:52 - Medications Medications: Current Medications Aspirin (Ecotrin) 81 mg PO DAILY [facility] Last Admin: 05/24/17 08:55 Dose: 81 mg Atorvastatin Calcium (Lipitor) 20 mg PO HS [facility] Last Admin: 05/23/17 21:15 Dose: 20 mg Calcium Carbonate (Oscal) 500 mg PO BIDWM [facility] Last Admin: 05/24/17 17:00 Dose: 500 mg Diltiazem HCl (Cardizem Cd) 240 mg PO DAILY [facility] Last Admin: 05/24/17 09:07 Dose: 240 mg Enoxaparin Sodium (Lovenox) 40 mg SC DAILY [facility] PRN Reason: Protocol Last Admin: 05/24/17 08:55 Dose: 40 mg Ergocalciferol (Drisdol 50,000 Intl Units Cap) 1 cap PO Q7D [facility] Last Admin: 05/22/17 23:44 Dose: Not Given Famotidine (Pepcid) 20 mg PO BID [facility] Last Admin: 05/24/17 17:00 Dose: 20 mg Folic Acid (Folic Acid) 1 mg PO DAILY [facility] Last Admin: 05/24/17 08:54 Dose: 1 mg Home Med (Sunitinib Malate [Sutent]) 50 mg PO DAILY [facility] Last Admin: 05/23/17 08:49 Dose: Not Given Hydralazine HCl (Apresoline) 50 mg PO Q8 [facility] Last Admin: 05/24/17 13:33 Dose: 50 mg Lactulose (Enulose) 20 gm PO BID PRN PRN Reason: Constipation Losartan Potassium (Cozaar) 100 mg PO DAILY [facility] Last Admin: 05/24/17 09:07 Dose: 100 mg Polyethylene Glycol (Miralax) 17 gm PO DAILY PRN PRN Reason: Constipation Last Admin: 05/09/17 09:26 Dose: 17 gm Topiramate (Topamax) 100 mg PO BID [facility] Last Admin: 05/24/17 17:00 Dose: 100 mg Physical Exam - Psychiatric Exam Additional comments: pt seen on wheel chair calm cooperative smiling, slurred speech. reported mood ok, appropriate affect denied any curent S/H I ideations. no perceptual disturbances elicited, alert awake, oriented to person only Results - Vital Signs Recent Vital Signs: Last Vital Signs Temp 97.6 F 05/24/17 10:00 Pulse 69 05/24/17 13:33 Resp 20 05/24/17 10:00 BP 155/82 H 05/24/17 13:33 Pulse Ox 97 05/24/17 10:00 - Labs Result Diagrams: 05/24/17 05:15 05/24/17 05:15 Labs: Laboratory Results - last 24 hr 05/24/17 05/24/17 05:15 05:15 WBC 4.2 L RBC 4.04 L Hgb 12.8 Hct 37.4 MCV 92.4 MCH 31.7 H MCHC 34.3 RDW 19.6 H Plt Count 96 L Sodium 133 Potassium 4.0 Chloride 102 Carbon Dioxide 23 Anion Gap 12 BUN 8 L Creatinine 1.2 Est GFR ( Amer) > 60 Est GFR (Non-Af Amer) > 60 Random Glucose 101 Calcium 9.4 Assessment & Plan - Assessment and Plan (Free Text) Assessment: post stroke depression vascular dementia continue current management - Date & Time Date: 05/24/17 Time: 18:20
--- NOTE | 2017-05-25 02:51 | CP.PCM.PN ---
Subjective - Date & Time of Evaluation Date of Evaluation: 05/24/17 Time of Evaluation: 20:00 - Subjective Subjective: Cooperative, negative EEG, is responsive to Topamax. Objective - Vital Signs/Intake and Output Vital Signs (last 24 hours): Temp Pulse Resp BP Pulse Ox 97.2 F L 76 20 159/90 H 97 05/24/17 20:07 05/24/17 21:18 05/24/17 20:07 05/24/17 21:18 05/24/17 20:07 - Medications Medications: Current Medications Aspirin (Ecotrin) 81 mg PO DAILY [facility] Last Admin: 05/24/17 08:55 Dose: 81 mg Atorvastatin Calcium (Lipitor) 20 mg PO HS [facility] Last Admin: 05/24/17 21:20 Dose: 20 mg Calcium Carbonate (Oscal) 500 mg PO BIDWM [facility] Last Admin: 05/24/17 17:00 Dose: 500 mg Diltiazem HCl (Cardizem Cd) 240 mg PO DAILY [facility] Last Admin: 05/24/17 09:07 Dose: 240 mg Enoxaparin Sodium (Lovenox) 40 mg SC DAILY [facility] PRN Reason: Protocol Last Admin: 05/24/17 08:55 Dose: 40 mg Ergocalciferol (Drisdol 50,000 Intl Units Cap) 1 cap PO Q7D [facility] Last Admin: 05/22/17 23:44 Dose: Not Given Famotidine (Pepcid) 20 mg PO BID [facility] Last Admin: 05/24/17 17:00 Dose: 20 mg Folic Acid (Folic Acid) 1 mg PO DAILY [facility] Last Admin: 05/24/17 08:54 Dose: 1 mg Home Med (Sunitinib Malate [Sutent]) 50 mg PO DAILY [facility] Last Admin: 05/23/17 08:49 Dose: Not Given Hydralazine HCl (Apresoline) 50 mg PO Q8 [facility] Last Admin: 05/24/17 21:18 Dose: 50 mg Lactulose (Enulose) 20 gm PO BID PRN PRN Reason: Constipation Losartan Potassium (Cozaar) 100 mg PO DAILY [facility] Last Admin: 05/24/17 09:07 Dose: 100 mg Polyethylene Glycol (Miralax) 17 gm PO DAILY PRN PRN Reason: Constipation Last Admin: 05/09/17 09:26 Dose: 17 gm Topiramate (Topamax) 100 mg PO BID [facility] Last Admin: 05/24/17 17:00 Dose: 100 mg - Labs Labs: 05/24/17 05:15 05/24/17 05:15 PT 11.6 Seconds (9.8-13.1) 05/20/17 15:47 INR 1.0 (0.9-1.2) 05/20/17 15:47 APTT 61.2 Seconds (25.6-37.1) H 05/20/17 15:47 Assessment and Plan (1) Brain mass Status: Acute (2) CVA (cerebral vascular accident) Status: Acute (3) Focal seizure Status: Acute (4) Headache Status: Acute (5) Intracranial bleed Status: Acute (6) Intracranial mass Status: Chronic (7) Left-sided weakness Status: Acute (8) Prophylactic measure Status: Acute
[2017-05-25] MEDS: diltiaZEM 240 mg/24 Hours CD Cap PO SCH (08:28)
[2017-05-25] MEDS: Enoxaparin 40 mg Syringe SC SCH (08:30)
--- NOTE | 2017-05-25 08:59 | EEG ---
DATE: CONDITION OF THE RECORDING AND DESCRIPTION: The record was obtained for a history of syncopal spell while having occupational therapy in the rehab, rule out seizures, rule out encephalopathy. The record was obtained while the patient was awake, drowsy, and asleep. The record was symmetrically equal on both sides with a velocity of 8 cycles per second. The waves were fairly formed, fairly organized with a posterior distribution, moderate in amplitude, reactive to opening by attenuation. There were no abnormal discharges. No spike, no polyspike, no sharp wave. No focal slowing or paroxysmal discharge. There were periods of drowsiness during which attenuation and slowing of the record were seen and theta waves were seen. There were periods of sleep during which delta waves were seen. There were eye movement artifact, electrode artifact, and muscle movement artifacts. Photic stimulation was performed, which did not produce any changes. Hyperventilation was omitted. IMPRESSION: In sum, this is a normal awake, drowsy, and asleep EEG. Clinical correlation is recommended. Autumn Ewing MD
--- NOTE | 2017-05-25 11:35 | CP.PCM.PN ---
Subjective - Date & Time of Evaluation Date of Evaluation: 05/25/17 Time of Evaluation: 11:33 - Subjective Subjective: pt seen examined bedside doing well with therapy. no complaints, NAD. HD stable. Objective - Vital Signs/Intake and Output Vital Signs (last 24 hours): Temp Pulse Resp BP Pulse Ox 98.0 F 70 20 140/59 L 99 05/25/17 08:15 05/25/17 08:29 05/25/17 08:15 05/25/17 08:29 05/25/17 08:15 - Medications Medications: Current Medications Aspirin (Ecotrin) 81 mg PO DAILY [facility] Last Admin: 05/25/17 08:29 Dose: 81 mg Atorvastatin Calcium (Lipitor) 20 mg PO HS [facility] Last Admin: 05/24/17 21:20 Dose: 20 mg Calcium Carbonate (Oscal) 500 mg PO BIDWM [facility] Last Admin: 05/25/17 08:29 Dose: 500 mg Diltiazem HCl (Cardizem Cd) 240 mg PO DAILY [facility] Last Admin: 05/25/17 08:28 Dose: 240 mg Enoxaparin Sodium (Lovenox) 40 mg SC DAILY [facility] PRN Reason: Protocol Last Admin: 05/25/17 08:30 Dose: 40 mg Ergocalciferol (Drisdol 50,000 Intl Units Cap) 1 cap PO Q7D [facility] Last Admin: 05/22/17 23:44 Dose: Not Given Famotidine (Pepcid) 20 mg PO BID [facility] Last Admin: 05/25/17 08:29 Dose: 20 mg Folic Acid (Folic Acid) 1 mg PO DAILY [facility] Last Admin: 05/25/17 08:28 Dose: 1 mg Home Med (Sunitinib Malate [Sutent]) 50 mg PO DAILY [facility] Last Admin: 05/23/17 08:49 Dose: Not Given Hydralazine HCl (Apresoline) 50 mg PO Q8 [facility] Last Admin: 05/25/17 06:03 Dose: 50 mg Lactulose (Enulose) 20 gm PO BID PRN PRN Reason: Constipation Losartan Potassium (Cozaar) 100 mg PO DAILY [facility] Last Admin: 05/25/17 08:29 Dose: 100 mg Polyethylene Glycol (Miralax) 17 gm PO DAILY PRN PRN Reason: Constipation Last Admin: 05/09/17 09:26 Dose: 17 gm Topiramate (Topamax) 100 mg PO BID [facility] Last Admin: 05/25/17 08:29 Dose: 100 mg - Labs Labs: 05/24/17 05:15 05/24/17 05:15 PT 11.6 Seconds (9.8-13.1) 05/20/17 15:47 INR 1.0 (0.9-1.2) 05/20/17 15:47 APTT 61.2 Seconds (25.6-37.1) H 05/20/17 15:47 - Constitutional Appears: Non-toxic, No Acute Distress - Head Exam Head Exam: ATRAUMATIC, NORMOCEPHALIC - Eye Exam Eye Exam: EOMI, Normal appearance, PERRL - ENT Exam ENT Exam: Mucous Membranes Moist, Normal Oropharynx - Neck Exam Neck Exam: Full ROM, Normal Inspection - Respiratory Exam Respiratory Exam: Clear to Ausculation Bilateral, NORMAL BREATHING PATTERN - Cardiovascular Exam Cardiovascular Exam: RRR, +S1, +S2 - GI/Abdominal Exam GI & Abdominal Exam: Soft, Normal Bowel Sounds. absent: Organomegaly - Extremities Exam Extremities Exam: Normal Capillary Refill. absent: Calf Tenderness - Back Exam Back Exam: absent: CVA tenderness (L), CVA tenderness (R) - Neurological Exam Neurological Exam: Alert, Awake - Psychiatric Exam Psychiatric exam: Normal Affect, Normal Mood - Skin Skin Exam: Dry, Warm Assessment and Plan - Assessment and Plan (Free Text) Plan: 67-year-old male with past medical history of prior CVA, 2 brain masses currently treated with chemotherapy status post right posterior parietal craniotomy in August 2016, renal mass, hypertension, hyperlipidemia sent from [facility] after acute CVA. Patient initially presented with left-sided weakness, aphasia, and left lateral gaze. In the emergency room shortly after, patient was able to look straight ahead and speak with me mild dysarthria, slurred speech and had some left-sided weakness with left lateral gaze. Patient transferred to acute rehabilitation for further rehabilitation needs. Patient participated in physical therapy well, has been improving his L sided weakness and neglect. Patient was medically managed for acute CVA, post stoke depression, HTN, hx renal mass, focal seizures, vitamin D deficiency. 05/20/17 - DIRECTOR OF WOMEN'S SERVICES was called for brief syncopal episode while patient was sitting in chair during rehab. He denies any chest pain or shortness of breath. Patient mentation is at baseline. Troponin was positive 0.1280, EKG had no significant changes. No active chest pain, dypsnea, malaise. Pt placed on observation on telemetry to rule out ACS, for repeat CT head eval for slightly increased lethargy. Neuro exam was baseline, no new focal deficits, mentation also at baseline. Pt also hyponatremic on [employer] labs. Likely secondary to dehydration. Patient significantly improved after hydration. Patient was DIRECTOR OF WOMEN'S SERVICES'd last night for another episode of syncope while he was having a bowel movement. Bradycardic at the time 55 bpm. likely vasovagal, cardiology consult pending. Patient to be discharged back to acute rehab upon evaluation by Cardiology. Stable per cardiology. D/C to rehab. Dx: vasovagal syncope patient transferred back to rehab for further rehab needs stable SYNCOPAL EPISODE ELEVATED TROPONIN Prior imaging studies at [facility] negative, echo read pending chest pain free Troponin 0.128, trend enzymes and EKG. Trended down, likely demand ischemia. No further cardio workupindicated. no significant changes on EKG, repeat in AM concern for ACS consult CARDIOLOGY appreciated and followed Cont ASA 81 mg DAILY Cont statin consider BB if tolerates, add Toprol 25 mg ELEVATED TSH Eval FREE T3/T4 for hypothyroidism INCREASED LETHARGY/MILD AMS 2/2 hyponatremia? centrally acting agents? - resolved, this was likely secondary to hyponatremia and volume depletion. HOLD centrally acting agents, Seroquel, Sertraline, Ativan, will continue Topamax for focal seizures for now Possibly secondary to hyponatremia Repeat CT head NEG No focal neuro deficits on physical exam Mentation and orientation generally at baseline, however less alert HYPONATREMIA - resolved. was likely secondary to volume depletion. 2/2 SIADH SSRI? HOLD Sertraline Send Urine Lytes, Urine and Serum Osm mild hydration with NS @ 100 cc/hr THROMBOCYTOPENIA Platelet 96 check manual count change Heparin to lovenox monitor ACUTE CVA patient with left-sided weakness, left neglect, dysarthria - left sided weakness and neglect improving with therapy MRI at [facility] found acute or subacute brain infarction to posterior right MCA distribution Patient neurologist was Dr. Ewing following on topomax 75 mg po Q12 for seizure prevention increased to 100 MG Q12 continue aspirin 81 mg daily, Statin and BP control continue PT, OT, speech therapy. Physiatry consult appreciated safety precautions REPEAT CT OF HEAD POST STROKE DEPRESSION psych consulted started on seroquel, Zoloft WILL HOLD HYPERTENSION controlled With slightly elevated BP during PT. No need for dose adjustment continue diltiazem, losartan, hydralazine ADD Toprol HISTORY RENAL MASS Brain masses currently on chemotherapy continue current therapy Chemo drug q 2 weeks next May 30. Family to order. FOCAL SEIZURES seizure free on Topomax . Increased dose to 100 mg po BID VITAMIN D DEFICIENCY pt initiated on Ergocalciferol and Calcium Carbonate per neuro VTE prophylaxis changed to lovenox for thrombocytopenia
[2017-05-25] MEDS: Metoprolol Succinate 25 mg XL Tab PO SCH (13:15)
--- NOTE | 2017-05-25 21:42 | CP.PCM.PN ---
Subjective - Date & Time of Evaluation Date of Evaluation: 05/25/17 Time of Evaluation: 20:05 - Subjective Subjective: No seizures, he is progressing well in his Rehab. Much less dysarthria, better movements of the left side of the body. No seizures. He is on Topamax 100mg Q 12 hrs. Objective - Vital Signs/Intake and Output Vital Signs (last 24 hours): Temp Pulse Resp BP Pulse Ox 98.4 F 74 20 138/69 99 05/25/17 20:55 05/25/17 20:55 05/25/17 20:55 05/25/17 20:55 05/25/17 20:55 - Medications Medications: Current Medications Aspirin (Ecotrin) 81 mg PO DAILY [facility] Last Admin: 05/25/17 08:29 Dose: 81 mg Atorvastatin Calcium (Lipitor) 20 mg PO HS [facility] Last Admin: 05/24/17 21:20 Dose: 20 mg Calcium Carbonate (Oscal) 500 mg PO BIDWM [facility] Last Admin: 05/25/17 17:15 Dose: 500 mg Diltiazem HCl (Cardizem Cd) 240 mg PO DAILY [facility] Last Admin: 05/25/17 08:28 Dose: 240 mg Enoxaparin Sodium (Lovenox) 40 mg SC DAILY [facility] PRN Reason: Protocol Last Admin: 05/25/17 08:30 Dose: 40 mg Ergocalciferol (Drisdol 50,000 Intl Units Cap) 1 cap PO Q7D [facility] Last Admin: 05/22/17 23:44 Dose: Not Given Famotidine (Pepcid) 20 mg PO BID [facility] Last Admin: 05/25/17 17:15 Dose: 20 mg Folic Acid (Folic Acid) 1 mg PO DAILY [facility] Last Admin: 05/25/17 08:28 Dose: 1 mg Home Med (Sunitinib Malate [Sutent]) 50 mg PO DAILY [facility] Last Admin: 05/23/17 08:49 Dose: Not Given Hydralazine HCl (Apresoline) 50 mg PO Q8 [facility] Last Admin: 05/25/17 13:19 Dose: 50 mg Lactulose (Enulose) 20 gm PO BID PRN PRN Reason: Constipation Losartan Potassium (Cozaar) 100 mg PO DAILY [facility] Last Admin: 05/25/17 08:29 Dose: 100 mg Metoprolol Succinate (Toprol Xl) 25 mg PO DAILY [facility] Last Admin: 05/25/17 13:15 Dose: 25 mg Polyethylene Glycol (Miralax) 17 gm PO DAILY PRN PRN Reason: Constipation Last Admin: 05/09/17 09:26 Dose: 17 gm Topiramate (Topamax) 100 mg PO BID [facility] Last Admin: 05/25/17 17:15 Dose: 100 mg - Labs Labs: 05/24/17 05:15 05/24/17 05:15 PT 11.6 Seconds (9.8-13.1) 05/20/17 15:47 INR 1.0 (0.9-1.2) 05/20/17 15:47 APTT 61.2 Seconds (25.6-37.1) H 05/20/17 15:47 Assessment and Plan (1) Brain mass Status: Acute (2) CVA (cerebral vascular accident) Status: Acute (3) Focal seizure Status: Acute (4) Headache Status: Acute (5) Intracranial bleed Status: Acute (6) Intracranial mass Status: Chronic (7) Left-sided weakness Status: Acute (8) Prophylactic measure Status: Acute
[2017-05-26] MEDS: diltiaZEM 240 mg/24 Hours CD Cap PO SCH (09:06)
[2017-05-26] MEDS: Metoprolol Succinate 25 mg XL Tab PO SCH (09:08)
--- NOTE | 2017-05-26 17:04 | CP.PCM.PN ---
Subjective - Date & Time of Evaluation Date of Evaluation: 05/26/17 Time of Evaluation: 17:03 - Subjective Subjective: PATIENT SEEN EXAMINED BEDSIDE S/P CVA, AFIB. PATIENT NO COMPLAINTS, DOING WELL. NO CP, SOB, CALF TENDERNESS. HD STABLE, NAD. PARTICIPATING IN THERAPY WELL. Objective - Vital Signs/Intake and Output Vital Signs (last 24 hours): Temp Pulse Resp BP Pulse Ox 97.5 F L 75 20 129/67 99 05/26/17 08:25 05/26/17 09:08 05/26/17 08:25 05/26/17 14:37 05/26/17 14:31 - Medications Medications: Current Medications Aspirin (Ecotrin) 81 mg PO DAILY [facility] Last Admin: 05/26/17 09:07 Dose: 81 mg Atorvastatin Calcium (Lipitor) 20 mg PO HS [facility] Last Admin: 05/25/17 21:52 Dose: 20 mg Calcium Carbonate (Oscal) 500 mg PO BIDWM [facility] Last Admin: 05/26/17 09:08 Dose: 500 mg Diltiazem HCl (Cardizem Cd) 240 mg PO DAILY [facility] Last Admin: 05/26/17 09:06 Dose: 240 mg Enoxaparin Sodium (Lovenox) 40 mg SC DAILY [facility] PRN Reason: Protocol Last Admin: 05/25/17 08:30 Dose: 40 mg Ergocalciferol (Drisdol 50,000 Intl Units Cap) 1 cap PO Q7D [facility] Last Admin: 05/22/17 23:44 Dose: Not Given Famotidine (Pepcid) 20 mg PO BID [facility] Last Admin: 05/26/17 09:08 Dose: 20 mg Folic Acid (Folic Acid) 1 mg PO DAILY [facility] Last Admin: 05/26/17 09:07 Dose: 1 mg Home Med (Sunitinib Malate [Sutent]) 50 mg PO DAILY [facility] Last Admin: 05/23/17 08:49 Dose: Not Given Hydralazine HCl (Apresoline) 50 mg PO Q8 [facility] Last Admin: 05/26/17 14:37 Dose: 50 mg Lactulose (Enulose) 20 gm PO BID PRN PRN Reason: Constipation Losartan Potassium (Cozaar) 100 mg PO DAILY [facility] Last Admin: 05/26/17 09:07 Dose: 100 mg Metoprolol Succinate (Toprol Xl) 25 mg PO DAILY [facility] Last Admin: 05/26/17 09:08 Dose: 25 mg Polyethylene Glycol (Miralax) 17 gm PO DAILY PRN PRN Reason: Constipation Last Admin: 05/09/17 09:26 Dose: 17 gm Topiramate (Topamax) 100 mg PO BID [facility] Last Admin: 05/26/17 09:08 Dose: 100 mg - Labs Labs: 05/24/17 05:15 05/24/17 05:15 PT 11.6 Seconds (9.8-13.1) 05/20/17 15:47 INR 1.0 (0.9-1.2) 05/20/17 15:47 APTT 61.2 Seconds (25.6-37.1) H 05/20/17 15:47 - Constitutional Appears: Non-toxic, No Acute Distress - Head Exam Head Exam: ATRAUMATIC, NORMOCEPHALIC - Eye Exam Eye Exam: EOMI, Normal appearance, PERRL Pupil Exam: NORMAL ACCOMODATION - ENT Exam ENT Exam: Mucous Membranes Moist, Normal Oropharynx - Neck Exam Neck Exam: Normal Inspection. absent: Lymphadenopathy - Respiratory Exam Respiratory Exam: Clear to Ausculation Bilateral, NORMAL BREATHING PATTERN - Cardiovascular Exam Cardiovascular Exam: REGULAR RHYTHM, +S1, +S2. absent: Murmur - GI/Abdominal Exam GI & Abdominal Exam: Soft, Normal Bowel Sounds. absent: Tenderness - Extremities Exam Extremities Exam: Normal Capillary Refill. absent: Calf Tenderness - Back Exam Back Exam: NORMAL INSPECTION. absent: CVA tenderness (L), CVA tenderness (R) - Neurological Exam Neurological Exam: Alert, Awake - Psychiatric Exam Psychiatric exam: Normal Affect, Normal Mood - Skin Skin Exam: Dry, Warm Assessment and Plan - Assessment and Plan (Free Text) Plan: 67-year-old male with past medical history of prior CVA, 2 brain masses currently treated with chemotherapy status post right posterior parietal craniotomy in August 2016, renal mass, hypertension, hyperlipidemia sent from [facility] after acute CVA. Patient initially presented with left-sided weakness, aphasia, and left lateral gaze. In the emergency room shortly after, patient was able to look straight ahead and speak with me mild dysarthria, slurred speech and had some left-sided weakness with left lateral gaze. Patient transferred to acute rehabilitation for further rehabilitation needs. Patient participated in physical therapy well, has been improving his L sided weakness and neglect. Patient was medically managed for acute CVA, post stoke depression, HTN, hx renal mass, focal seizures, vitamin D deficiency. 05/20/17 - [employer] was called for brief syncopal episode while patient was sitting in chair during rehab. He denies any chest pain or shortness of breath. Patient mentation is at baseline. Troponin was positive 0.1280, EKG had no significant changes. No active chest pain, dypsnea, malaise. Pt placed on observation on telemetry to rule out ACS, for repeat CT head eval for slightly increased lethargy. Neuro exam was baseline, no new focal deficits, mentation also at baseline. Pt also hyponatremic on [employer] labs. Likely secondary to dehydration. Patient significantly improved after hydration. Patient was [employer] last night for another episode of syncope while he was having a bowel movement. Bradycardic at the time 55 bpm. likely vasovagal, cardiology consult pending. Patient to be discharged back to acute rehab upon evaluation by Cardiology. Stable per cardiology. D/C to rehab. Dx: vasovagal syncope patient transferred back to rehab for further rehab needs stable SYNCOPAL EPISODE ELEVATED TROPONIN Prior imaging studies at [facility] negative, echo read pending chest pain free Troponin 0.128, trend enzymes and EKG. Trended down, likely demand ischemia. No further cardio workupindicated. no significant changes on EKG, repeat in AM concern for ACS consult CARDIOLOGY appreciated and followed Cont ASA 81 mg DAILY Cont statin consider BB if tolerates, add Toprol 25 mg ELEVATED TSH Eval FREE T3/T4 for hypothyroidism INCREASED LETHARGY/MILD AMS 2/2 hyponatremia? centrally acting agents? - resolved, this was likely secondary to hyponatremia and volume depletion. HOLD centrally acting agents, Seroquel, Sertraline, Ativan, will continue Topamax for focal seizures for now Possibly secondary to hyponatremia Repeat CT head NEG No focal neuro deficits on physical exam Mentation and orientation generally at baseline, however less alert HYPONATREMIA - resolved. was likely secondary to volume depletion. 2/2 SIADH SSRI? HOLD Sertraline Send Urine Lytes, Urine and Serum Osm mild hydration with NS @ 100 cc/hr THROMBOCYTOPENIA Platelet 96 check manual count change Heparin to lovenox monitor ACUTE CVA patient with left-sided weakness, left neglect, dysarthria - left sided weakness and neglect improving with therapy MRI at [facility] found acute or subacute brain infarction to posterior right MCA distribution Patient neurologist was Dr. Ewing following on topomax 75 mg po Q12 for seizure prevention increased to 100 MG Q12 continue aspirin 81 mg daily, Statin and BP control continue PT, OT, speech therapy. Physiatry consult appreciated safety precautions REPEAT CT OF HEAD POST STROKE DEPRESSION psych consulted started on seroquel, Zoloft WILL HOLD HYPERTENSION controlled With slightly elevated BP during PT. No need for dose adjustment continue diltiazem, losartan, hydralazine ADD Toprol HISTORY RENAL MASS Brain masses currently on chemotherapy continue current therapy Chemo drug q 2 weeks next May 30. Family to order. FOCAL SEIZURES seizure free on Topomax . Increased dose to 100 mg po BID VITAMIN D DEFICIENCY pt initiated on Ergocalciferol and Calcium Carbonate per neuro VTE prophylaxis changed to lovenox for thrombocytopenia
--- NOTE | 2017-05-26 18:21 | CP.PCM.PN ---
Subjective - Date & Time of Evaluation Date of Evaluation: 05/26/17 Time of Evaluation: 18:20 - Subjective Subjective: Patient seen in the room doing well in bed denies sob/cp ambulating 150' without AD has tolerated PT/OT continue current care Objective - Vital Signs/Intake and Output Vital Signs (last 24 hours): Temp Pulse Resp BP Pulse Ox 97.5 F L 75 20 129/67 99 05/26/17 08:25 05/26/17 09:08 05/26/17 08:25 05/26/17 14:37 05/26/17 14:31 - Medications Medications: Current Medications Aspirin (Ecotrin) 81 mg PO DAILY [facility] Last Admin: 05/26/17 09:07 Dose: 81 mg Atorvastatin Calcium (Lipitor) 20 mg PO HS [facility] Last Admin: 05/25/17 21:52 Dose: 20 mg Calcium Carbonate (Oscal) 500 mg PO BIDWM [facility] Last Admin: 05/26/17 17:30 Dose: 500 mg Diltiazem HCl (Cardizem Cd) 240 mg PO DAILY [facility] Last Admin: 05/26/17 09:06 Dose: 240 mg Enoxaparin Sodium (Lovenox) 40 mg SC DAILY [facility] PRN Reason: Protocol Last Admin: 05/25/17 08:30 Dose: 40 mg Ergocalciferol (Drisdol 50,000 Intl Units Cap) 1 cap PO Q7D [facility] Last Admin: 05/22/17 23:44 Dose: Not Given Famotidine (Pepcid) 20 mg PO BID [facility] Last Admin: 05/26/17 17:30 Dose: 20 mg Folic Acid (Folic Acid) 1 mg PO DAILY [facility] Last Admin: 05/26/17 09:07 Dose: 1 mg Home Med (Sunitinib Malate [Sutent]) 50 mg PO DAILY [facility] Last Admin: 05/23/17 08:49 Dose: Not Given Hydralazine HCl (Apresoline) 50 mg PO Q8 [facility] Last Admin: 05/26/17 14:37 Dose: 50 mg Lactulose (Enulose) 20 gm PO BID PRN PRN Reason: Constipation Losartan Potassium (Cozaar) 100 mg PO DAILY [facility] Last Admin: 05/26/17 09:07 Dose: 100 mg Metoprolol Succinate (Toprol Xl) 25 mg PO DAILY [facility] Last Admin: 05/26/17 09:08 Dose: 25 mg Polyethylene Glycol (Miralax) 17 gm PO DAILY PRN PRN Reason: Constipation Last Admin: 05/09/17 09:26 Dose: 17 gm Topiramate (Topamax) 100 mg PO BID [facility] Last Admin: 05/26/17 17:30 Dose: 100 mg - Labs Labs: 05/24/17 05:15 05/24/17 05:15 PT 11.6 Seconds (9.8-13.1) 05/20/17 15:47 INR 1.0 (0.9-1.2) 05/20/17 15:47 APTT 61.2 Seconds (25.6-37.1) H 05/20/17 15:47
--- NOTE | 2017-05-27 00:30 | CP.PCM.PN ---
Subjective - Date & Time of Evaluation Date of Evaluation: 05/26/17 Time of Evaluation: 21:00 - Subjective Subjective: No seizures, no Syncopal spells, doing better because of the successful Rehab , where he feels regaining his previous condition of health, stronger Left Side of the body, no neglect, walking with help. No seizures on Topamax 100 mg Q 12 hrs. Objective - Vital Signs/Intake and Output Vital Signs (last 24 hours): Temp Pulse Resp BP Pulse Ox 97.5 F L 69 20 114/60 99 05/26/17 08:25 05/26/17 21:26 05/26/17 08:25 05/26/17 21:26 05/26/17 14:31 - Medications Medications: Current Medications Aspirin (Ecotrin) 81 mg PO DAILY [facility] Last Admin: 05/26/17 09:07 Dose: 81 mg Atorvastatin Calcium (Lipitor) 20 mg PO HS [facility] Last Admin: 05/26/17 21:26 Dose: 20 mg Calcium Carbonate (Oscal) 500 mg PO BIDWM [facility] Last Admin: 05/26/17 17:30 Dose: 500 mg Diltiazem HCl (Cardizem Cd) 240 mg PO DAILY [facility] Last Admin: 05/26/17 09:06 Dose: 240 mg Enoxaparin Sodium (Lovenox) 40 mg SC DAILY [facility] PRN Reason: Protocol Last Admin: 05/25/17 08:30 Dose: 40 mg Ergocalciferol (Drisdol 50,000 Intl Units Cap) 1 cap PO Q7D [facility] Last Admin: 05/22/17 23:44 Dose: Not Given Famotidine (Pepcid) 20 mg PO BID [facility] Last Admin: 05/26/17 17:30 Dose: 20 mg Folic Acid (Folic Acid) 1 mg PO DAILY [facility] Last Admin: 05/26/17 09:07 Dose: 1 mg Home Med (Sunitinib Malate [Sutent]) 50 mg PO DAILY [facility] Last Admin: 05/23/17 08:49 Dose: Not Given Hydralazine HCl (Apresoline) 50 mg PO Q8 [facility] Last Admin: 05/26/17 21:26 Dose: 50 mg Lactulose (Enulose) 20 gm PO BID PRN PRN Reason: Constipation Losartan Potassium (Cozaar) 100 mg PO DAILY [facility] Last Admin: 05/26/17 09:07 Dose: 100 mg Metoprolol Succinate (Toprol Xl) 25 mg PO DAILY [facility] Last Admin: 05/26/17 09:08 Dose: 25 mg Polyethylene Glycol (Miralax) 17 gm PO DAILY PRN PRN Reason: Constipation Last Admin: 05/09/17 09:26 Dose: 17 gm Topiramate (Topamax) 100 mg PO BID [facility] Last Admin: 05/26/17 17:30 Dose: 100 mg - Labs Labs: 05/24/17 05:15 05/24/17 05:15 PT 11.6 Seconds (9.8-13.1) 05/20/17 15:47 INR 1.0 (0.9-1.2) 05/20/17 15:47 APTT 61.2 Seconds (25.6-37.1) H 05/20/17 15:47 Assessment and Plan (1) Brain mass Status: Acute (2) CVA (cerebral vascular accident) Status: Acute (3) Focal seizure Status: Acute (4) Headache Status: Acute (5) Intracranial bleed Status: Acute (6) Intracranial mass Status: Chronic (7) Left-sided weakness Status: Acute (8) Prophylactic measure Status: Acute
[2017-05-27] MEDS: diltiaZEM 240 mg/24 Hours CD Cap PO SCH (08:15)
[2017-05-27] MEDS: Metoprolol Succinate 25 mg XL Tab PO SCH (08:17)
--- NOTE | 2017-05-28 | CP.PCM.PN ---
Subjective - Date & Time of Evaluation Date of Evaluation: 05/27/17 Time of Evaluation: 21:50 - Subjective Subjective: Patient is responding to Rehab. He has no seizures. He will be discharged soon. He is walking about 150 Ft Awake Alert oriented. Left hemiparesis has improved significantly, he has no left side hemineglect. He is on Topamax 100 mg Q 12hrs. Objective - Vital Signs/Intake and Output Vital Signs (last 24 hours): Temp Pulse Resp BP Pulse Ox 98.7 F 67 20 148/67 96 05/27/17 19:52 05/27/17 21:40 05/27/17 19:52 05/27/17 21:40 05/27/17 19:52 - Medications Medications: Current Medications Aspirin (Ecotrin) 81 mg PO DAILY [facility] Last Admin: 05/27/17 08:17 Dose: 81 mg Atorvastatin Calcium (Lipitor) 20 mg PO HS [facility] Last Admin: 05/27/17 21:41 Dose: 20 mg Calcium Carbonate (Oscal) 500 mg PO BIDWM [facility] Last Admin: 05/27/17 16:54 Dose: 500 mg Diltiazem HCl (Cardizem Cd) 240 mg PO DAILY [facility] Last Admin: 05/27/17 08:15 Dose: Not Given Enoxaparin Sodium (Lovenox) 40 mg SC DAILY [facility] PRN Reason: Protocol Last Admin: 05/25/17 08:30 Dose: 40 mg Ergocalciferol (Drisdol 50,000 Intl Units Cap) 1 cap PO Q7D [facility] Last Admin: 05/22/17 23:44 Dose: Not Given Famotidine (Pepcid) 20 mg PO BID [facility] Last Admin: 05/27/17 16:54 Dose: 20 mg Folic Acid (Folic Acid) 1 mg PO DAILY [facility] Last Admin: 05/27/17 08:16 Dose: 1 mg Home Med (Sunitinib Malate [Sutent]) 50 mg PO DAILY [facility] Last Admin: 05/23/17 08:49 Dose: Not Given Hydralazine HCl (Apresoline) 50 mg PO Q8 [facility] Last Admin: 05/27/17 21:40 Dose: 50 mg Lactulose (Enulose) 20 gm PO BID PRN PRN Reason: Constipation Losartan Potassium (Cozaar) 100 mg PO DAILY [facility] Last Admin: 05/27/17 10:00 Dose: Not Given Metoprolol Succinate (Toprol Xl) 25 mg PO DAILY [facility] Last Admin: 05/27/17 08:17 Dose: 25 mg Polyethylene Glycol (Miralax) 17 gm PO DAILY PRN PRN Reason: Constipation Last Admin: 05/09/17 09:26 Dose: 17 gm Topiramate (Topamax) 100 mg PO BID [facility] Last Admin: 05/27/17 16:55 Dose: 100 mg - Labs Labs: 05/24/17 05:15 05/24/17 05:15 PT 11.6 Seconds (9.8-13.1) 05/20/17 15:47 INR 1.0 (0.9-1.2) 05/20/17 15:47 APTT 61.2 Seconds (25.6-37.1) H 05/20/17 15:47 Assessment and Plan (1) Brain mass Status: Acute (2) CVA (cerebral vascular accident) Status: Acute (3) Focal seizure Status: Acute (4) Headache Status: Acute (5) Intracranial bleed Status: Acute (6) Intracranial mass Status: Chronic (7) Left-sided weakness Status: Acute (8) Prophylactic measure Status: Acute
[2017-05-28] MEDS: Metoprolol Succinate 25 mg XL Tab PO SCH (08:24)
[2017-05-28] MEDS: diltiaZEM 240 mg/24 Hours CD Cap PO SCH (08:27)
--- NOTE | 2017-05-28 12:55 | CP.PCM.CON ---
History of Present Illness - History of Present Illness History of Present Illness: F/U CONSULT REQUESTED PT IS BEING DISCHARGED TOMORROW this is a 67-year-old male with past medical history of prior CVA, 2 brain masses currently treated with chemotherapy status post right posterior parietal craniotomy in August 2016, renal mass, hypertension, hyperlipidemia presenting from [facility] after acute CVA. patient initially presented with left- sided weakness, aphasia, and left lateral gaze. in the emergency room shortly after, patient was able to look straight ahead and speak with me mild dysarthria , slurred speech and had some left-sided weakness with left lateral gaze. Patient admitted for further rehabilitation needs. pt has been prio evaluated by assembly instructions writer for episode of agitation, placed on [id number] prn q12 for agitatio and zoloft 12.5mg daily for depression follow up consult requested as pt had another episode of agitation and confusion two days ago pt on evaluatuion at current mental status much better communication, cooperative smiling, speech,soft and slow no behavioral disturbances no reported changes in sleep or appetite Past Patient History - Past Medical History & Family History Past Medical History?: Yes - Past Social History Smoking Status: Never Smoked - CARDIAC Hx Hypertension: Yes - NEUROLOGICAL Hx Neurological Disorder: Yes Other/Comment: BRAIN TUMOR - RENAL Hx Chronic Kidney Disease: Yes (CA Kidney) - ENDOCRINE/METABOLIC Hx Diabetes Mellitus Type 2: Yes - HEMATOLOGICAL/ONCOLOGICAL Hx Cancer: Yes - MUSCULOSKELETAL/RHEUMATOLOGICAL Hx Falls: No - PSYCHIATRIC Hx Substance Use: No - SURGICAL HISTORY Hx Surgeries: Yes Other/Comment: right nephroectomy, BRAIN TUMOR REMOVAL - ANESTHESIA Hx Anesthesia: Yes Hx Anesthesia Reactions: No Meds Home Medications: Home Medication List Medication Instructions Recorded Confirmed Type Calcium Carbonate [Oscal] 500 mg PO BIDWM tab 05/20/17 Rx Ergocalciferol [Drisdol 50,000 1 cap PO Q7D cap 05/20/17 Rx Intl Units Cap] LORazepam [Ativan] 1 mg IM Q4H PRN vial 05/20/17 Rx Lactulose [Enulose] 20 gm PO BID PRN udc 05/20/17 Rx Losartan [Cozaar] 100 mg PO DAILY tab 05/20/17 Rx Polyethylene Glycol 3350 [Miralax] 17 gm PO DAILY PRN packet 05/20/17 Rx Topiramate [Topamax] 75 mg PO BID tab 05/20/17 Rx hydrALAZINE [Apresoline] 25 mg PO Q8H tab 05/20/17 Rx Allergies/Adverse Reactions: Allergies Allergy/AdvReac Type Severity Reaction Status Date / Time No Known Allergies Allergy Verified 05/02/17 10:52 - Medications Medications: Current Medications Aspirin (Ecotrin) 81 mg PO DAILY [facility] Last Admin: 05/28/17 08:24 Dose: 81 mg Atorvastatin Calcium (Lipitor) 20 mg PO HS [facility] Last Admin: 05/27/17 21:41 Dose: 20 mg Calcium Carbonate (Oscal) 500 mg PO BIDWM [facility] Last Admin: 05/28/17 08:23 Dose: 500 mg Diltiazem HCl (Cardizem Cd) 240 mg PO DAILY [facility] Last Admin: 05/28/17 08:27 Dose: 240 mg Enoxaparin Sodium (Lovenox) 40 mg SC DAILY [facility] PRN Reason: Protocol Last Admin: 05/25/17 08:30 Dose: 40 mg Ergocalciferol (Drisdol 50,000 Intl Units Cap) 1 cap PO Q7D [facility] Last Admin: 05/22/17 23:44 Dose: Not Given Famotidine (Pepcid) 20 mg PO BID [facility] Last Admin: 05/28/17 08:24 Dose: 20 mg Folic Acid (Folic Acid) 1 mg PO DAILY [facility] Last Admin: 05/28/17 08:24 Dose: 1 mg Home Med (Sunitinib Malate [Sutent]) 50 mg PO DAILY [facility] Last Admin: 05/23/17 08:49 Dose: Not Given Hydralazine HCl (Apresoline) 50 mg PO Q8 [facility] Last Admin: 05/28/17 05:44 Dose: 50 mg Lactulose (Enulose) 20 gm PO BID PRN PRN Reason: Constipation Losartan Potassium (Cozaar) 100 mg PO DAILY [facility] Last Admin: 05/28/17 08:30 Dose: 100 mg Metoprolol Succinate (Toprol Xl) 25 mg PO DAILY [facility] Last Admin: 05/28/17 08:24 Dose: 25 mg Polyethylene Glycol (Miralax) 17 gm PO DAILY PRN PRN Reason: Constipation Last Admin: 05/09/17 09:26 Dose: 17 gm Topiramate (Topamax) 100 mg PO BID [facility] Last Admin: 05/28/17 08:24 Dose: 100 mg Physical Exam - Psychiatric Exam Additional comments: pt seen on wheel chair calm cooperative smiling, speech.soft and slow reported mood ok, appropriate affect denied any curent S/H I ideations. no perceptual disturbances elicited, alert awake, oriented to person only Results - Vital Signs Recent Vital Signs: Last Vital Signs Temp 97.3 F L 05/28/17 09:01 Pulse 84 05/28/17 09:01 Resp 20 05/28/17 09:01 BP 127/68 05/28/17 09:01 Pulse Ox 99 05/28/17 09:01 - Labs Result Diagrams: 05/24/17 05:15 05/24/17 05:15 Assessment & Plan - Assessment and Plan (Free Text) Assessment: vascular dementia pt at currentmental status stable denied any current suicidal or homicidal ideations denied perceptual disturbances no behavioral changes reported by staff pt is psychiatrically cleared for discharge - Date & Time Date: 05/28/17 Time: 12:54
[2017-05-28 21:05] VITALS: O2SAT 100
[2017-05-29 08:40] VITALS: BP 114/61; PULSE 81; TEMP 96.8
[2017-05-29] MEDS: diltiaZEM 240 mg/24 Hours CD Cap PO SCH (08:42)
[2017-05-29] MEDS: Metoprolol Succinate 25 mg XL Tab PO SCH (08:44)
--- NOTE | 2017-05-29 11:43 | CP.PCM.DIS ---
Provider - Provider Date of Admission: 05/05/17 16:08 Attending physician: Alisson Valladares DO Primary care physician: Dr. Campos Consults: 05/05/17 17:38 Case Management Referral Routine Comment: Physician Instructions: Reason For Exam: s/p Right MCA Stroke Reason for Referral: Discharge Planning Time Spent in preparation of Discharge (in minutes): 25 Diagnosis - Discharge Diagnosis (1) CVA (cerebral vascular accident) Status: Acute (2) Brain mass Status: Acute (3) Elevated troponin Status: Resolved (4) Focal seizure Status: Resolved (5) Left-sided weakness Status: Acute (6) Syncope Status: Resolved (7) Intracranial mass Status: Chronic Hospital Course - Lab Results Lab Results: Most Recent Lab Values WBC 4.2 K/uL (4.8-10.8) L 05/24/17 05:15 RBC 4.04 Mil/uL (4.40-5.90) L 05/24/17 05:15 Hgb 12.8 g/dL (12.0-18.0) 05/24/17 05:15 Hct 37.4 % (35.0-51.0) 05/24/17 05:15 MCV 92.4 fl (80.0-94.0) 05/24/17 05:15 MCH 31.7 pg (27.0-31.0) H 05/24/17 05:15 MCHC 34.3 g/dL (33.0-37.0) 05/24/17 05:15 RDW 19.6 % (11.5-14.5) H 05/24/17 05:15 Plt Count 96 K/uL (130-400) L 05/24/17 05:15 MPV 9.9 fl (7.2-11.7) 05/20/17 15:27 Neut % (Auto) 38.3 % (50.0-75.0) L 05/20/17 15:27 Lymph % (Auto) 45.7 % (20.0-40.0) H 05/20/17 15:27 [place] % (Auto) 13.6 % (0.0-10.0) H 05/20/17 15:27 Eos % (Auto) 1.9 % (0.0-4.0) 05/20/17 15:27 Baso % (Auto) 0.5 % (0.0-2.0) 05/20/17 15:27 Neut # 1.4 K/uL (1.8-7.0) L 05/20/17 15:27 Lymph # 1.7 K/uL (1.0-4.3) 05/20/17 15:27 [place] # 0.5 K/uL (0.0-0.8) 05/20/17 15:27 Eos # 0.1 K/uL (0.0-0.7) 05/20/17 15:27 Baso # 0.0 K/uL (0.0-0.2) 05/20/17 15:27 PT 11.6 Seconds (9.8-13.1) 05/20/17 15:47 INR 1.0 (0.9-1.2) 05/20/17 15:47 APTT 61.2 Seconds (25.6-37.1) H 05/20/17 15:47 Sodium 133 mmol/l (132-148) 05/24/17 05:15 Potassium 4.0 MMOL/L (3.6-5.0) 05/24/17 05:15 Chloride 102 mmol/L (98-107) 05/24/17 05:15 Carbon Dioxide 23 mmol/L (22-30) 05/24/17 05:15 Anion Gap 12 (10-20) 05/24/17 05:15 BUN 8 mg/dl (9-20) L 05/24/17 05:15 Creatinine 1.2 mg/dl (0.8-1.5) 05/24/17 05:15 Est GFR ( Amer) > 60 05/24/17 05:15 Est GFR (Non-Af Amer) > 60 05/24/17 05:15 POC Glucose (mg/dL) 110 mg/dL (65-110) 05/20/17 13:24 Random Glucose 101 mg/dL (75-110) 05/24/17 05:15 Calcium 9.4 mg/dL (8.4-10.2) 05/24/17 05:15 Phosphorus 2.4 mg/dl (2.5-4.5) L 05/20/17 15:27 Magnesium 1.7 MG/DL (1.6-2.3) 05/20/17 15:27 Total Bilirubin 0.3 mg/dl (0.2-1.3) 05/20/17 15:27 AST 61 U/L (17-59) H 05/20/17 15:27 ALT 53 U/L (21-72) 05/20/17 15:27 Alkaline Phosphatase 79 U/L (38-126) 05/20/17 15:27 Troponin I 0.1280 ng/mL (0.00-0.120) H* 05/20/17 15:27 Total Protein 7.3 G/DL (6.3-8.2) 05/20/17 15:27 Albumin 4.1 g/dL (3.5-5.0) 05/20/17 15:27 Globulin 3.2 gm/dL (2.2-3.9) 05/20/17 15:27 Albumin/Globulin Ratio 1.3 (1.0-2.1) 05/20/17 15:27 Prostate Specific Ag 1.68 ng/ML (0.00-4.0) 05/19/17 06:15 Urine Color Yellow (YELLOW) 05/06/17 18:48 Urine Clarity Clear (Clear) 05/06/17 18:48 Urine pH 7.0 (5.0-8.0) 05/06/17 18:48 Ur Specific [place] 1.008 (1.003-1.030) 05/06/17 18:48 Urine Protein 30 mg/dL (NEGATIVE) 05/06/17 18:48 Urine Glucose (UA) Neg mg/dL (Normal) 05/06/17 18:48 Urine Ketones Trace mg/dL (NEGATIVE) 05/06/17 18:48 Urine Blood Negative (NEGATIVE) 05/06/17 18:48 Urine Nitrate Negative (NEGATIVE) 05/06/17 18:48 Urine Bilirubin Negative (NEGATIVE) 05/06/17 18:48 Urine Urobilinogen 4.0 mg/dL (0.2-1.0) 05/06/17 18:48 Ur Leukocyte Esterase Neg [place]/uL (Negative) 05/06/17 18:48 Urine RBC (Auto) 2 /hpf (0-3) 05/06/17 18:48 Urine Microscopic WBC < 1 /hpf (0-5) 05/06/17 18:48 Ur Squamous Epith Cells < 1 /hpf (0-5) 05/06/17 18:48 Urine Bacteria Rare (<OCC) 05/06/17 18:48 Phenytoin 13.0 ug/ML (10-20) 05/06/17 05:20 - Hospital Course Hospital Course: This is a 67-year-old male with past medical history of prior CVA, 2 brain masses currently treated with chemotherapy status post right posterior parietal craniotomy in August 2016, renal mass, hypertension, hyperlipidemia sent from [facility] after acute CVA. He was admitted to acute rehab on 05/05/2017. Patient initially presented with left-sided weakness, aphasia, and left lateral gaze. Patient transferred to acute rehabilitation for further rehabilitation needs. Patient participated in physical therapy well, and his L sided weakness and neglect has improved During his stay, the patient was medically managed for acute CVA, post stoke depression, HTN, hx renal mass, focal seizures, vitamin D deficiency. 05/20/17 - LEGAL BILLER was called for brief syncopal episode while patient was sitting in chair during rehab. He denies any chest pain or shortness of breath. Patient mentation is at baseline. Troponin was positive 0.1280, EKG had no significant changes. No active chest pain, dypsnea, malaise. Pt placed on observation on telemetry to rule out ACS, for repeat CT head eval for slightly increased lethargy. Neuro exam was baseline, no new focal deficits, mentation also at baseline. Pt also hyponatremic on LEGAL BILLER labs. Was thought to be likely due to dehydration and improved with IV fluids. The patient improved during his hospitcal course and was discharged to home today in stable condition. He is to follow up with his PMD, Dr. Campos, on 2016. He is to return to ED for any worsening of symptoms. SYNCOPAL EPISODE ELEVATED TROPONIN- improved Prior imaging studies at [facility] negative, echo read pending chest pain free Troponin 0.128. Trended down, likely demand ischemia. No further cardio workup indicated. no significant changes on EKG Was seen by cardiology on consultation Cont ASA 81 mg DAILY as outpt Cont statin as outpatient cont Toprol 25 mg po daily ELEVATED TSH Eval FREE T3/T4 for hypothyroidism INCREASED LETHARGY/MILD AMS 2/2 hyponatremia? centrally acting agents? - resolved, this was likely secondary to hyponatremia and volume depletion. HOLD centrally acting agents, Seroquel, Sertraline, Ativan, will continue Topamax for focal seizures for now Possibly secondary to hyponatremia Repeat CT head NEG No focal neuro deficits on physical exam Mentation and orientation generally at baseline, however less alert HYPONATREMIA - resolved. was likely secondary to volume depletion. THROMBOCYTOPENIA Platelet 96 check manual count change Heparin to lovenox monitor ACUTE CVA patient with left-sided weakness, left neglect, dysarthria - left sided weakness and neglect improving with therapy MRI at [facility] found acute or subacute brain infarction to posterior right MCA distribution Patient was seen by Dr. Ewing, neurology. on topomax 75 mg po Q12 for seizure prevention increased to 100 MG Q12 continue aspirin 81 mg daily, Statin and BP control Recieved PT, OT, speech therapy. Physiatry consult appreciated safety precautions REPEAT CT OF HEAD POST STROKE DEPRESSION psych consulted started on seroquel, Zoloft WILL HOLD HYPERTENSION controlled With slightly elevated BP during PT. No need for dose adjustment continue diltiazem, losartan, hydralazine ADD Toprol HISTORY RENAL MASS Brain masses currently on chemotherapy continue current therapy Chemo drug q 2 weeks next May 30. Family to order. Script not given for Sutent upon discharge. To f/u with PMD. FOCAL SEIZURES seizure free on Topomax . Increased dose to 100 mg po BID VITAMIN D DEFICIENCY pt initiated on Ergocalciferol and Calcium Carbonate per neuro Discharge Exam - Additional Findings Additional findings: - Constitutional Appears: Non-toxic, No Acute Distress - Head Exam Head Exam: ATRAUMATIC, NORMOCEPHALIC - Eye Exam Eye Exam: EOMI, Normal appearance, PERRL Pupil Exam: NORMAL ACCOMODATION - ENT Exam ENT Exam: Mucous Membranes Moist, Normal Oropharynx - Neck Exam Neck Exam: Normal Inspection. absent: Lymphadenopathy - Respiratory Exam Respiratory Exam: Clear to Ausculation Bilateral, NORMAL BREATHING PATTERN - Cardiovascular Exam Cardiovascular Exam: REGULAR RHYTHM, +S1, +S2. absent: Murmur - GI/Abdominal Exam GI & Abdominal Exam: Soft, Normal Bowel Sounds. absent: Tenderness - Extremities Exam Extremities Exam: Normal Capillary Refill. absent: Calf Tenderness - Back Exam Back Exam: NORMAL INSPECTION. absent: CVA tenderness (L), CVA tenderness (R) - Neurological Exam Neurological Exam: Alert, Awake - Psychiatric Exam Psychiatric exam: Normal Affect, Normal Mood - Skin Skin Exam: Dry, Warm Discharge Plan - Discharge Medications Prescriptions: Aspirin [Ecotrin] 81 mg PO DAILY #30 tabec diltiaZEM CD [Cardizem CD] 240 mg PO DAILY #30 cap Famotidine [Pepcid] 20 mg PO BID #60 tab Folic Acid 1 mg PO DAILY #30 tab hydrALAZINE [Apresoline] 50 mg PO Q8 #90 tab Metoprolol Succinate [Toprol XL] 25 mg PO DAILY #30 tab Sunitinib Malate [Sutent] 50 mg PO DAILY #30 capsule Topiramate [Topamax] 100 mg PO BID #60 tab - Follow Up Plan Condition: GOOD Disposition: HOME/ ROUTINE Instructions: Metoprolol (By mouth), Diltiazem (By mouth), Famotidine (By mouth ), Aspirin (By mouth), Folic Acid (By mouth), Ergocalciferol (By mouth), Hydralazine (By mouth), Losartan (By mouth), Atorvastatin (By mouth), Topiramate (By mouth), Calcium Supplement (By mouth), Sunitinib (By mouth), Heart Healthy Diet (DC), Stroke (DC) Additional Instructions: FOLLOW UP APPOINTMENT 1. Dr. sIh Campos (PMD) [address] [place] [address] [place] [address] Appointment time: 1030AM at 06/01/[address] Thalia Arana (Oncology) Appointment: 06/02/17 at 1:15PM [address] [place] [address] Tom Ewing (Neurology) [address] [place] [address] [address] [place] [address] Appointment: Tuesday06/06/17 at 6PM
--- NOTE | 2017-05-29 20:44 | CP.PCM.PN ---
Subjective - Date & Time of Evaluation Date of Evaluation: 05/29/17 Time of Evaluation: 13:00 - Subjective Subjective: Patient did well and his left hemiparesis has significantly improved. He had no seizures for long days. He is controlled on Topamax 100 mg Q 12 hrs. He is to receive Rectal Diastat 10 mg TID PRN Seizures. He is to continue his course for Vitamin D Deficiency consisting of Ergocalciferol 50,000 Units /Week X 12 weeks total. Also has to continue the Oscal 500 mg BID for 12 weeks. He is walking, talking, awake, Alert, Oriented, fluent coherent speech. He has more confidence in his capacity to perform his daily activities and to interact with the community. Objective - Vital Signs/Intake and Output Vital Signs (last 24 hours): Temp Pulse Resp BP Pulse Ox 96.8 F L 81 20 114/61 100 05/29/17 08:40 05/29/17 08:44 05/29/17 08:40 05/29/17 08:44 05/29/17 08:40 - Labs Labs: 05/24/17 05:15 05/24/17 05:15 PT 11.6 Seconds (9.8-13.1) 05/20/17 15:47 INR 1.0 (0.9-1.2) 05/20/17 15:47 APTT 61.2 Seconds (25.6-37.1) H 05/20/17 15:47 Assessment and Plan (1) Brain mass Status: Acute (2) CVA (cerebral vascular accident) Status: Acute (3) Focal seizure Status: Resolved (4) Headache Status: Acute (5) Intracranial bleed Status: Acute (6) Intracranial mass Status: Chronic (7) Left-sided weakness Status: Acute (8) Prophylactic measure Status: Acute
== END 2017-05-29 13:50 | disposition home or self-care (01) | DRG 57 ==
LOC: UNDODISIN 05-20 17:13 → TMPLOALOC 05-20 17:13
PROVIDERS: ADMIT Student in an Organized Health Care Education/Training Program; ATTEND Student in an Organized Health Care Education/Training Program
PROC: F07Z9FZ Gait Training/Functional Ambulation Treatment using Assistive, Adaptive, Supportive or Protective Equipment (ICD-10-PCS; principal; 2017-05-05)
PROC: F07Z8FZ Transfer Training Treatment using Assistive, Adaptive, Supportive or Protective Equipment (ICD-10-PCS; 2017-05-05)
PROC: F07Z5FZ Bed Mobility Treatment using Assistive, Adaptive, Supportive or Protective Equipment (ICD-10-PCS; 2017-05-05)
PROC: F07L6ZZ Therapeutic Exercise Treatment of Musculoskeletal System - Lower Back / Lower Extremity (ICD-10-PCS; 2017-05-05)
PROC: F08Z3FZ Feeding/Eating Treatment using Assistive, Adaptive, Supportive or Protective Equipment (ICD-10-PCS; 2017-05-05)
PROC: F08Z2FZ Grooming/Personal Hygiene Treatment using Assistive, Adaptive, Supportive or Protective Equipment (ICD-10-PCS; 2017-05-05)
PROC: F08Z1FZ Dressing Techniques Treatment using Assistive, Adaptive, Supportive or Protective Equipment (ICD-10-PCS; 2017-05-05)
PROC: F06Z6ZZ Communicative/Cognitive Integration Skills Treatment (ICD-10-PCS; 2017-05-05)
DX: I69.354 Hemiplegia and hemiparesis following cerebral infarction affecting left non-dominant side (principal); G93.89 Other specified disorders of brain; D69.6 Thrombocytopenia, unspecified; H53.462 Homonymous bilateral field defects, left side; E87.1 Hypo-osmolality and hyponatremia; R41.4 Neurologic neglect syndrome; G40.89 Other seizures; E86.0 Dehydration; F01.50 Vascular dementia, unspecified severity, without behavioral disturbance, psychotic disturbance, mood disturbance, and anxiety; I69.320 Aphasia following cerebral infarction; Z85.528 Personal history of other malignant neoplasm of kidney; E78.5 Hyperlipidemia, unspecified; I69.328 Other speech and language deficits following cerebral infarction; I69.398 Other sequelae of cerebral infarction; F06.31 Mood disorder due to known physiological condition with depressive features; R41.0 Disorientation, unspecified; E55.9 Vitamin D deficiency, unspecified; I69.322 Dysarthria following cerebral infarction; Z92.21 Personal history of antineoplastic chemotherapy

== ENCOUNTER 2017-05-20 17:18 | Inpatient (IN) | payer MEDICARE, OTHER ==
--- NOTE | 2017-05-20 17:31 | ED PDOC ---
HPI: General Adult Time Seen by Provider: 05/20/17 17:23 Chief Complaint (Nursing): Dizziness/Lightheaded History Per: Other (Transferred from rehab due to elevated Troponin. Pt denies chest pain, SOB, headache or dizziness.) Past Medical History Vital Signs: Last Vital Signs Temp 98 F 05/20/17 17:22 Pulse 77 05/20/17 17:22 Resp 18 05/20/17 17:22 BP 144/92 H 05/20/17 17:22 Pulse Ox 99 05/20/17 17:22 - Medical History PMH: CVA, HTN, Chronic Kidney Disease (CA Kidney) Denies: HIV - Family History Family History: States: Unknown Family Hx - Home Medications Home Medications: Ambulatory Orders Medication Instructions Recorded Folic Acid 1 mg PO DAILY 05/02/17 Aspirin [Ecotrin] 81 mg PO DAILY tabec 05/05/17 Famotidine [Pepcid] 20 mg IVP DAILY vial 05/05/17 Heparin 5,000 unit SC Q12 05/05/17 Losartan [Cozaar] 50 mg PO DAILY tab 05/05/17 Phenytoin [Dilantin] 100 mg IVP Q8 vial 05/05/17 Rosuvastatin Calcium [Crestor] 10 mg PO HS 05/05/17 Sunitinib Malate [Sutent] 50 mg PO DAILY 05/05/17 Topiramate [Topamax] 50 mg PO BID tab 05/05/17 [id number] CD [Cardizem CD] 240 mg PO DAILY cap 05/05/17 Calcium Carbonate [Oscal] 500 mg PO BIDWM tab 05/20/17 Ergocalciferol [Drisdol 50,000 1 cap PO Q7D cap 05/20/17 Intl Units Cap] LORazepam [Ativan] 1 mg IM Q4H PRN vial 05/20/17 Lactulose [Enulose] 20 gm PO BID PRN udc 05/20/17 Losartan [Cozaar] 100 mg PO DAILY tab 05/20/17 Polyethylene Glycol 3350 [Miralax] 17 gm PO DAILY PRN packet 05/20/17 QUEtiapine [Seroquel] 12.5 mg PO BID PRN tab 05/20/17 Sertraline [Zoloft] 12.5 mg PO DAILY tab 05/20/17 Topiramate [Topamax] 75 mg PO BID tab 05/20/17 hydrALAZINE [Apresoline] 25 mg PO Q8H tab 05/20/17 - Allergies Allergies/Adverse Reactions: Allergies Allergy/AdvReac Type Severity Reaction Status Date / Time No Known Allergies Allergy Verified 05/02/17 10:52 Review of Systems ROS Statement: Except As Marked, All Systems Reviewed And Found Negative Physical Exam - Reviewed Nursing Documentation Reviewed: Yes Vital Signs Reviewed: Yes - Physical Exam Appears: Positive for: Non-toxic, No Acute Distress Head Exam: Positive for: ATRAUMATIC, NORMAL INSPECTION, NORMOCEPHALIC Skin: Positive for: Normal Color, Warm, DRY Eye Exam: Positive for: EOMI, Normal appearance, PERRL ENT: Positive for: Normal ENT Inspection Neck: Positive for: Normal, Painless ROM Cardiovascular/Chest: Positive for: Regular Rate, Rhythm Respiratory: Positive for: CNT, Normal Breath Sounds Gastrointestinal/Abdominal: Positive for: Normal Exam, Bowel Sounds, Soft Back: Positive for: Normal Inspection Extremity: Positive for: Normal ROM Neurologic/Psych: Positive for: Alert, Oriented (x 2) - ECG O2 Sat by Pulse Oximetry: 99 Disposition - Clinical Impression Clinical Impression: Elevated troponin - Patient ED Disposition Is Patient to be Admitted: Yes - Disposition Disposition Time: 17:30 Condition: FAIR - Pt Status Changed To: Hospital Disposition Of: Observation - POA Present On Arrival: None
[2017-05-20] MEDS ORDERED: Sodium Chloride 0.9% 1,000 ML IV SCH (17:45)
--- NOTE | 2017-05-20 17:47 | CP.PCM.HP ---
History of Present Illness - History of Present Illness History of Present Illness: CC: elevated troponins 67-year-old male with past medical history of prior CVA, 2 brain masses currently treated with chemotherapy status post right posterior parietal craniotomy in August 2016, renal mass, hypertension, hyperlipidemia sent from [facility] after acute CVA. Patient initially presented with left-sided weakness, aphasia, and left lateral gaze. In the emergency room shortly after, patient was able to look straight ahead and speak with me mild dysarthria, slurred speech and had some left-sided weakness with left lateral gaze. Patient transferred to acute rehabilitation for further rehabilitation needs. Patient participated in physical therapy well, has been improving his L sided weakness and neglect. Patient was medically managed for acute CVA, post stoke depression , HTN, hx renal mass, focal seizures, vitamin D deficiency. 05/20/17 SLASHER TENDER HELPER was called for brief syncopal episode while patient was sitting in chair during rehab. He denies any chest pain or shortness of breath. Patient mentation is at baseline. Troponin was positive 0.1280, EKG had no significant changes. No active chest pain, dypsnea, malaise. Pt placed on observation on telemetry to rule out ACS, for repeat CT head eval for slightly increased lethargy. Neuro exam was baseline, no new focal deficits, mentation also at baseline. Pt also hyponatremic on SLASHER TENDER HELPER labs. Will initiate NS @100, send Urine lytes, Urine and Serum Osm. HD stable, NAD. Review of systems per HPI all other systems reviewed negative by me Past medical history: Renal mass, 2 brain masses treated with chemotherapy, hypertension, hyperlipidemia Past surgical history: Right posterior parietal craniotomy at [facility] August 2016 Social history: unable to iterate whether he uses tobacco, alcohol or IV drug use. Family history: Unable to obtain at this time Medications as below Allergies NKDA Physical exam: vitals reviewed Constitutional- cooperative, awake, alert, mildly more lethargic than baseline. Head- NCAT, PERRL Eye- PERRL, normal accommodation ENT- normal exam, MMM. Neck- normal inspection, supple, no JVD Respiratory- CTAB, no wheezes rales rhonchi Cardiovascular- RRR, +S1, +S2 no MRG GI/Abdominal- normal bowel sounds, soft, no mass, no hsm Skin- warm, dry Extremities Exam- normal capillary refill, normal inspection. Neurological Exam- alert, Strength testing at baseline. No new focal neuro deficits. Psych- normal mood, normal affect Labs reviewed significant for Na 127 Imaging studies from [facility]: CT head 05/02/2017: No acute intracranial abnormality. Status post right posterior parietal craniotomy. Cystic encephalomalacia in the right posterior paramedian parietal lobe, supple of remote insult. MRI recommended. CTA 05/02/2017: No evidence of internal carotid stenosis or intra-arterial thrombus MRI brain: acute or subacute brain infarction at the mid to posterior right MCA distribution with limited local mass effect and age-related neurogenic degenerative changes. Head MRA: Motion and revealed motion artifact which really distorted the examination and felt to be simulating severe arterial stenosis or occlusions involving nearly all major intracranial arteries as well as the bilateral internal carotid arteries. The severity of the interval changes are likely due to the extensive neurological findings is present to corroborate MRI findings. the studies were not apparent on initial CT findings. ASSESSMENT AND PLAN Syncope Elevate Troponin Increased Lethargy/Mild AMS Hyponatremia Thrombocytopenia Acute CVA Post Stroke Depression Hypertension History Renal Mass Focal Seizures Vitamin D Deficiency 67-year-old male with past medical history of prior CVA, 2 brain masses currently treated with chemotherapy status post right posterior parietal craniotomy in August 2016, renal mass, hypertension, hyperlipidemia sent from [facility] after acute CVA. Patient initially presented with left-sided weakness, aphasia, and left lateral gaze. In the emergency room shortly after, patient was able to look straight ahead and speak with me mild dysarthria, slurred speech and had some left-sided weakness with left lateral gaze. Patient transferred to acute rehabilitation for further rehabilitation needs. Patient participated in physical therapy well, has been improving his L sided weakness and neglect. Patient was medically managed for acute CVA, post stoke depression, HTN, hx renal mass, focal seizures, vitamin D deficiency. 05/20/17 - SLASHER TENDER HELPER was called for brief syncopal episode while patient was sitting in chair during rehab. He denies any chest pain or shortness of breath. Patient mentation is at baseline. Troponin was positive 0.1280, EKG had no significant changes. No active chest pain, dypsnea, malaise. Pt placed on observation on telemetry to rule out ACS, for repeat CT head eval for slightly increased lethargy. Neuro exam was baseline, no new focal deficits, mentation also at baseline. Pt also hyponatremic on SLASHER TENDER HELPER labs. Will initiate NS @100, send Urine lytes, Urine and Serum Osm. SYNCOPAL EPISODE ELEVATED TROPONIN Prior imaging studies at [facility] negative, echo read pending teleobs overnight chest pain free Troponin 0.128, trend enzymes and EKG no significant changes on EKG, repeat in AM concern for ACS INCREASED LETHARGY/MILD AMS 2/2 hyponatremia? centrally acting agents? HOLD centrally acting agents, Seroquel, Sertraline, Ativan, will continue Topamax for focal seizures for now Possibly secondary to hyponatremia Repeat CT head NEG No focal neuro deficits on physical exam Mentation and orientation generally at baseline, however less alert HYPONATREMIA 2/2 SIADH SSRI? HOLD Sertraline Send Urine Lytes, Urine and Serum Osm mild hydration with NS @ 100 cc/hr THROMBOCYTOPENIA Platelet 88 check manual count change Heparin to lovenox monitor ACUTE CVA patient with left-sided weakness, left neglect, dysarthria - left sided weakness and neglect improving with therapy MRI at [facility] found acute or subacute brain infarction to posterior right MCA distribution Patient neurologist was Dr. Ewing following on topomax 75 mg po Q12 for seizure prevention continue aspirin 81 mg daily, Statin and BP control continue PT, OT, speech therapy. Physiatry consult appreciated safety precautions REPEAT CT OF HEAD POST STROKE DEPRESSION psych consulted started on seroquel, Zoloft WILL HOLD HYPERTENSION controlled With slightly elevated BP during PT. No need for dose adjustment continue diltiazem, losartan, hydralazine HISTORY RENAL MASS Brain masses currently on chemotherapy continue current therapy FOCAL SEIZURES seizure free on Topomax . Increased dose to 75 mg po BID VITAMIN D DEFICIENCY pt initiated on Ergocalciferol and Calcium Carbonate per neuro VTE prophylaxis changed to lovenox for thrombocytopenia Present on Admission - Present on Admission Any Indicators Present on Admission: No Past Patient History - Past Medical History & Family History Past Medical History?: Yes - Past Social History Smoking Status: Never Smoked - CARDIAC Hx Hypertension: Yes - NEUROLOGICAL Hx Neurological Disorder: Yes Other/Comment: BRAIN TUMOR - RENAL Hx Chronic Kidney Disease: Yes (CA Kidney) - ENDOCRINE/METABOLIC Hx Diabetes Mellitus Type 2: Yes - HEMATOLOGICAL/ONCOLOGICAL Hx Human Immunodeficiency Virus (HIV): No - MUSCULOSKELETAL/RHEUMATOLOGICAL Hx Falls: No - PSYCHIATRIC Hx Substance Use: No - SURGICAL HISTORY Hx Surgeries: Yes Other/Comment: right nephroectomy, BRAIN TUMOR REMOVAL - ANESTHESIA Hx Anesthesia: Yes Hx Anesthesia Reactions: No Meds Allergies/Adverse Reactions: Allergies Allergy/AdvReac Type Severity Reaction Status Date / Time No Known Allergies Allergy Verified 05/02/17 10:52 Results - Vital Signs Recent Vital Signs: Last Vital Signs Temp 98 F 05/20/17 17:22 Pulse 77 05/20/17 17:22 Resp 18 05/20/17 17:22 BP 144/92 H 05/20/17 17:22 Pulse Ox 99 05/20/17 17:30
--- NOTE | 2017-05-20 18:01 | CT ---
PROCEDURE: CT HEAD WITHOUT CONTRAST. HISTORY: r/o bleed COMPARISON: Comparison is made to 03/21/2016 TECHNIQUE: Axial computed tomography images were obtained through the head/brain without intravenous contrast. Radiation dose: Total exam DLP = 1248.22 mGy-cm. This CT exam was performed using one or more of the following dose reduction techniques: Automated exposure control, adjustment of the mA and/or kV according to patient size, and/or use of iterative reconstruction technique. FINDINGS: HEMORRHAGE: No intracranial hemorrhage. BRAIN: Focal encephalomalacia at the right high parietal lobe corresponding to the area of previously seen focal hemorrhage. Mild atrophy. Moderate white matter changes are again seen. VENTRICLES: Unremarkable. No hydrocephalus. CALVARIUM: Status post right posterior parietal craniotomy PARANASAL SINUSES: Mild ethmoid sinus mucosal disease. MASTOID AIR CELLS: Unremarkable as visualized. No inflammatory changes. OTHER FINDINGS: None. IMPRESSION: No evidence of acute intracranial hemorrhage intracranial collection mass effect or midline shift. Focal encephalomalacia at the high right parietal lobe. Mild atrophy and moderate chronic microvascular white matter ischemic disease.
[2017-05-20] MEDS ORDERED: POLYETHYLENE GLYCOL 3350 17 GM/Dose PACKET PO PRN (18:07)
[2017-05-20] MEDS ORDERED: Ergocalciferol 50,000 Intl Units Cap PO SCH (18:15)
[2017-05-20] MEDS: Sodium Chloride 0.9% 1,000 ML IV SCH (18:59)
[2017-05-21 08:30] LABS: BASO % 0.5 % (0.0-2.0); EOS # 0.1 K/uL (0.0-0.7); EOS % 2.4 % (0.0-4.0); HEMATOCRIT 39.2 % (35.0-51.0); LYMPH % 60.7 % (20.0-40.0); MEAN CELL VOLUME 91.4 fl (80.0-94.0); MEAN CORPUSCULAR HEMOGLOBIN 31.5 pg (27.0-31.0); MEAN CORPUSCULAR HGB CONC 34.5 g/dL (33.0-37.0); MEAN PLATELET VOLUME 8.4 fl (7.2-11.7); MONO # 0.3 K/uL (0.0-0.8); MONO % 10.6 % (0.0-10.0); NEUT # 0.9 K/uL (1.8-7.0); NEUT % 25.8 % (50.0-75.0); NRBC % 0.2 % (0.0-0.0); RED CELL DISTRIBUTION WIDTH 19.2 % (11.5-14.5); WHITE BLOOD COUNT 3.3 K/uL (4.8-10.8)
[2017-05-21] MEDS: diltiaZEM 240 mg/24 Hours CD Cap PO SCH (09:29)
[2017-05-21] MEDS: Enoxaparin 40 mg Syringe SC SCH (09:30)
--- NOTE | 2017-05-21 09:57 | CP.PCM.PN ---
Subjective - Date & Time of Evaluation Date of Evaluation: 05/21/17 Time of Evaluation: 09:57 - Subjective Subjective: patient seen examined bedside to AMS, elevated troponins, hyponatremia. Elevated TSH as well, Hyponatremia resolved today with hydration. Urine Osm showed hypovolemia yesterday, patient responded very well to fluids and is back to baseline. Na also resolved. Troponins persistently elevated, likely 2/2 demand ischemia. Cardiology consult Dr. Hughes. HD stable, NAD. Objective - Vital Signs/Intake and Output Vital Signs (last 24 hours): Temp Pulse Resp BP Pulse Ox 98.2 F 66 18 175/89 H 99 05/21/17 08:00 05/21/17 09:29 05/21/17 08:00 05/21/17 09:29 05/21/17 08:00 - Medications Medications: Current Medications Aspirin (Ecotrin) 81 mg PO DAILY [facility] Last Admin: 05/21/17 09:26 Dose: 81 mg Atorvastatin Calcium (Lipitor) 20 mg PO HS [facility] Last Admin: 05/21/17 00:30 Dose: 20 mg Calcium Carbonate (Oscal) 500 mg PO BIDWM [facility] Last Admin: 05/21/17 09:28 Dose: 500 mg Diltiazem HCl (Cardizem Cd) 240 mg PO DAILY [facility] Last Admin: 05/21/17 09:29 Dose: 240 mg Enoxaparin Sodium (Lovenox) 40 mg SC DAILY [facility] PRN Reason: Protocol Last Admin: 05/21/17 09:30 Dose: 40 mg Ergocalciferol (Drisdol 50,000 Intl Units Cap) 1 cap PO Q7D [facility] Famotidine (Pepcid) 20 mg PO BID [facility] Last Admin: 05/21/17 09:26 Dose: 20 mg Folic Acid (Folic Acid) 1 mg PO DAILY [facility] Last Admin: 05/21/17 09:29 Dose: 1 mg Home Med (Sunitinib Malate [Sutent]) 50 mg PO DAILY [facility] Hydralazine HCl (Apresoline) 25 mg PO Q8H [facility] Last Admin: 05/21/17 09:28 Dose: 25 mg Sodium Chloride (Sodium Chloride 0.9%) 1,000 mls @ 100 mls/hr IV .Q10H [facility] Last Admin: 05/20/17 18:59 Dose: 100 mls/hr Lactulose (Enulose) 20 gm PO BID PRN PRN Reason: Constipation Losartan Potassium (Cozaar) 100 mg PO DAILY [facility] Last Admin: 05/21/17 09:27 Dose: 100 mg Polyethylene Glycol (Miralax) 17 gm PO DAILY PRN PRN Reason: Constipation Topiramate (Topamax) 75 mg PO BID [facility] Last Admin: 05/21/17 09:29 Dose: 75 mg - Labs Labs: 05/21/17 06:00 - Constitutional Appears: Non-toxic, No Acute Distress - Head Exam Head Exam: ATRAUMATIC, NORMOCEPHALIC - Eye Exam Eye Exam: EOMI, Normal appearance, PERRL Pupil Exam: NORMAL ACCOMODATION - ENT Exam ENT Exam: Mucous Membranes Moist - Respiratory Exam Respiratory Exam: Clear to Ausculation Bilateral, NORMAL BREATHING PATTERN - Cardiovascular Exam Cardiovascular Exam: RRR, +S1, +S2 - GI/Abdominal Exam GI & Abdominal Exam: Soft, Normal Bowel Sounds - Extremities Exam Extremities Exam: Normal Capillary Refill. absent: Pedal Edema - Back Exam Back Exam: NORMAL INSPECTION. 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 Patient initially presented with left-sided weakness, aphasia, and left lateral gaze. In the emergency room shortly after, patient was able to look straight ahead and speak with me mild dysarthria, slurred speech and had some left-sided weakness with left lateral gaze. Patient transferred to acute rehabilitation for further rehabilitation needs. Patient participated in physical therapy well, has been improving his L sided weakness and neglect. Patient was medically managed for acute CVA, post stoke depression, HTN, hx renal mass, focal seizures, vitamin D deficiency. 05/20/17 - PLASMA SPECIALIST was called for brief syncopal episode while patient was sitting in chair during rehab. He denies any chest pain or shortness of breath. Patient mentation is at baseline. Troponin was positive 0.1280, EKG had no significant changes. No active chest pain, dypsnea, malaise. Pt placed on observation on telemetry to rule out ACS, for repeat CT head eval for slightly increased lethargy. Neuro exam was baseline, no new focal deficits, mentation also at baseline. Pt also hyponatremic on PLASMA SPECIALIST labs. Will initiate NS @100, send Urine lytes, Urine and Serum Osm. Patient significantly improved this morning after hydration. Patient OK for discharge back to acute rehab upon evaluation by Cardiology. SYNCOPAL EPISODE ELEVATED TROPONIN Prior imaging studies at [facility] negative, echo read pending chest pain free Troponin 0.128, trend enzymes and EKG no significant changes on EKG, repeat in AM concern for ACS consult CARDIOLOGYtoday, Dr. Hughes trend another Troponin, likely secondary to demand ischemia ELEVATED TSH Eval FREE T3/T4 for hypothyroidism INCREASED LETHARGY/MILD AMS 2/2 hyponatremia? centrally acting agents? - resolved, this was likely secondary to hyponatremia and volume depletion. HOLD centrally acting agents, Seroquel, Sertraline, Ativan, will continue Topamax for focal seizures for now Possibly secondary to hyponatremia Repeat CT head NEG No focal neuro deficits on physical exam Mentation and orientation generally at baseline, however less alert HYPONATREMIA - resolved. was likely secondary to volume depletion. 2/2 SIADH SSRI? HOLD Sertraline Send Urine Lytes, Urine and Serum Osm mild hydration with NS @ 100 cc/hr THROMBOCYTOPENIA Platelet 88 yesterday, continues to be low check manual count change Heparin to lovenox monitor ACUTE CVA patient with left-sided weakness, left neglect, dysarthria - left sided weakness and neglect improving with therapy MRI at [facility] found acute or subacute brain infarction to posterior right MCA distribution Patient neurologist was Dr. Ewign following on topomax 75 mg po Q12 for seizure prevention continue aspirin 81 mg daily, Statin and BP control continue PT, OT, speech therapy. Physiatry consult appreciated safety precautions REPEAT CT OF HEAD POST STROKE DEPRESSION psych consulted started on seroquel, Zoloft WILL HOLD HYPERTENSION controlled With slightly elevated BP during PT. No need for dose adjustment continue diltiazem, losartan, hydralazine HISTORY RENAL MASS Brain masses currently on chemotherapy continue current therapy FOCAL SEIZURES seizure free on Topomax . Increased dose to 75 mg po BID VITAMIN D DEFICIENCY pt initiated on Ergocalciferol and Calcium Carbonate per neuro VTE prophylaxis changed to lovenox for thrombocytopenia
[2017-05-21 10:01] LABS: BLOOD UREA NITROGEN 9 mg/dl (9-20); CARBON DIOXIDE 23 mmol/L (22-30); CHLORIDE 102 mmol/L (98-107); GFR AFRICAN-AMERICAN > 60; GLUCOSE,RANDOM 98 mg/dL (75-110); POTASSIUM 3.9 MMOL/L (3.6-5.0); SODIUM 134 mmol/l (132-148)
[2017-05-21 10:02] LABS: CALCIUM 9.4 mg/dL (8.4-10.2)
[2017-05-21] MEDS: Sodium Chloride 0.9% 1,000 ML IV SCH ×2 (12:30→13:41)
--- NOTE | 2017-05-21 12:42 | CARD ---
APPROVED REPORT EKG Measurement Heart [id number] ND 152P74 [id number] <Conclusion> Normal sinus rhythm Nonspecific T wave abnormality Abnormal ECG
[2017-05-21 13:15] LABS: TROPONIN I 0.157 ng/mL (0.00-0.120)
--- NOTE | 2017-05-22 05:20 | PCM.RRT ---
DISTRIBUTION ESTIMATOR Nurse Assessment - Situation DISTRIBUTION ESTIMATOR Responder Arrival Time: 05:00 Room Number: 408 DISTRIBUTION ESTIMATOR Reason for Call: Change in Mental Status - IV IV Inserted during DISTRIBUTION ESTIMATOR?: Yes New IV Insertion Tolerance:: Poor - Respiratory Oxygen Delivery Method: Room Air I.Reason for DISTRIBUTION ESTIMATOR - A) Acute Change in Patient: Subjective: DISTRIBUTION ESTIMATOR was called as patient had a syncopal episode on commode. Nurse was nearby, patient was responsive again immediately. Patient was moved to bed, VSS with only abnormality being HR 50s. Ser Gluc was 200s. Patient had no c/c. Multiple attempts were made to put an IV in, however, failed likely due to vol depletion. Patient refused further IV insertion attempts at this time. DISTRIBUTION ESTIMATOR ended as patient had diarrhea in bed again. - Neurological Status (Select all that apply): Alert, Responsive, Oriented, Verbal, Follows Commands - Constitutional Appears: No Acute Distress - Respiratory Exam Respiratory Exam: NORMAL BREATHING PATTERN - Cardiovascular Exam Cardiovascular Exam: Bradycardia, REGULAR RHYTHM - Neurological Exam Neurological Exam: Awake, CN II-XII Intact - Extremities Exam Extremities Exam: Full ROM Plan - Assessment of Findings&Treatment Plan For now 1:1 obs, give PO fluids and reattempt insertion of IV, AM labs as ordered.
[2017-05-22 08:11] LABS: HEMATOCRIT 39.9 % (35.0-51.0); MEAN CELL VOLUME 92.4 fl (80.0-94.0); MEAN CORPUSCULAR HEMOGLOBIN 31.6 pg (27.0-31.0); MEAN CORPUSCULAR HGB CONC 34.2 g/dL (33.0-37.0); RED CELL DISTRIBUTION WIDTH 19.3 % (11.5-14.5); WHITE BLOOD COUNT 4.5 K/uL (4.8-10.8)
[2017-05-22 08:17] LABS: BLOOD UREA NITROGEN 10 mg/dl (9-20); CALCIUM 9.6 mg/dL (8.4-10.2); CARBON DIOXIDE 22 mmol/L (22-30); CHLORIDE 102 mmol/L (98-107); GFR AFRICAN-AMERICAN > 60; GLUCOSE,RANDOM 119 mg/dL (75-110); POTASSIUM 3.7 MMOL/L (3.6-5.0); SODIUM 135 mmol/l (132-148)
[2017-05-22] MEDS: Enoxaparin 40 mg Syringe SC SCH (09:17)
[2017-05-22] MEDS: diltiaZEM 240 mg/24 Hours CD Cap PO SCH (09:18)
[2017-05-22] MEDS: Sodium Chloride 0.9% 1,000 ML IV SCH (10:17)
--- NOTE | 2017-05-22 11:04 | CP.PCM.PN ---
Subjective - Date & Time of Evaluation Date of Evaluation: 05/22/17 Time of Evaluation: 11:03 - Subjective Subjective: patient seen examined bedside for AMS now resolved and episode of syncope. Patient was BOX BLANK MACHINE FEEDER'd last night for another episode of syncope while he was having a bowel movement. Bradycardic at the time 55 bpm. likely vasovagal, cardiology consult pending. No complaints this morning, mentating at baseline, L sided neglect mildly improving. HD stable, NAD. no chest pain, no dyspnea, no calf tenderness. Objective - Vital Signs/Intake and Output Vital Signs (last 24 hours): Temp Pulse Resp BP Pulse Ox 97.6 F 58 L 20 156/95 H 98 05/22/17 08:00 05/22/17 09:19 05/22/17 08:00 05/22/17 09:19 05/22/17 08:00 Intake and Output: Constitutional- cooperative, awake, alert. Head- NCAT, PERRL Eye- PERRL, normal accommodation ENT- normal exam, MMM. Neck- normal inspection, supple, no JVD Respiratory- CTAB, no wheezes rales rhonchi Cardiovascular- RRR, +S1, +S2 no MRG GI/Abdominal- normal bowel sounds, soft Skin- warm, dry Extremities Exam- normal capillary refill, normal inspection Neurological Exam- alert, L sided neglect improving. Mentation at baseline. Psych- normal mood, normal affect - Medications Medications: Current Medications Aspirin (Ecotrin) 81 mg PO DAILY [facility] Last Admin: 05/22/17 09:19 Dose: 81 mg Atorvastatin Calcium (Lipitor) 20 mg PO HS [facility] Last Admin: 05/21/17 21:00 Dose: 20 mg Calcium Carbonate (Oscal) 500 mg PO BIDWM [facility] Last Admin: 05/22/17 09:18 Dose: 500 mg Diltiazem HCl (Cardizem Cd) 240 mg PO DAILY [facility] Last Admin: 05/22/17 09:18 Dose: 240 mg Enoxaparin Sodium (Lovenox) 40 mg SC DAILY [facility] PRN Reason: Protocol Last Admin: 05/22/17 09:17 Dose: 40 mg Ergocalciferol (Drisdol 50,000 Intl Units Cap) 1 cap PO Q7D [facility] Famotidine (Pepcid) 20 mg PO BID [facility] Last Admin: 05/22/17 09:17 Dose: 20 mg Folic Acid (Folic Acid) 1 mg PO DAILY [facility] Last Admin: 05/22/17 09:18 Dose: 1 mg Home Med (Sunitinib Malate [Sutent]) 50 mg PO DAILY [facility] Hydralazine HCl (Apresoline) 50 mg PO Q8H [facility] Last Admin: 05/22/17 03:40 Dose: Not Given Sodium Chloride (Sodium Chloride 0.9%) 1,000 mls @ 100 mls/hr IV .Q10H [facility] Last Admin: 05/22/17 10:17 Dose: Not Given Lactulose (Enulose) 20 gm PO BID PRN PRN Reason: Constipation Losartan Potassium (Cozaar) 100 mg PO DAILY [facility] Last Admin: 05/22/17 09:19 Dose: 100 mg Polyethylene Glycol (Miralax) 17 gm PO DAILY PRN PRN Reason: Constipation Topiramate (Topamax) 75 mg PO BID [facility] Last Admin: 05/22/17 09:19 Dose: 75 mg - Labs Labs: 05/22/17 06:30 05/22/17 06:30 Assessment and Plan - Assessment and Plan (Free Text) Plan: Syncope Elevate Troponin Increased Lethargy/Mild AMS Hyponatremia Thrombocytopenia Acute CVA Post Stroke Depression Hypertension History Renal Mass Focal Seizures Vitamin D Deficiency Elevated TSH 67-year-old male with past medical history of prior CVA, 2 brain masses currently treated with chemotherapy status post right posterior parietal craniotomy in August 2016, renal mass, hypertension, hyperlipidemia sent from [facility]] after acute CVA. Patient initially presented with left-sided weakness, aphasia, and left lateral gaze. In the emergency room shortly after, patient was able to look straight ahead and speak with me mild dysarthria, slurred speech and had some left-sided weakness with left lateral gaze. Patient transferred to acute rehabilitation for further rehabilitation needs. Patient participated in physical therapy well, has been improving his L sided weakness and neglect. Patient was medically managed for acute CVA, post stoke depression, HTN, hx renal mass, focal seizures, vitamin D deficiency. 05/20/17 - BOX BLANK MACHINE FEEDER was called for brief syncopal episode while patient was sitting in chair during rehab. He denies any chest pain or shortness of breath. Patient mentation is at baseline. Troponin was positive 0.1280, EKG had no significant changes. No active chest pain, dypsnea, malaise. Pt placed on observation on telemetry to rule out ACS, for repeat CT head eval for slightly increased lethargy. Neuro exam was baseline, no new focal deficits, mentation also at baseline. Pt also hyponatremic on BOX BLANK MACHINE FEEDER labs. Will initiate NS @100, send Urine lytes, Urine and Serum Osm. Patient significantly improved after hydration. Patient was BOX BLANK MACHINE FEEDER'd last night for another episode of syncope while he was having a bowel movement. Bradycardic at the time 55 bpm. likely vasovagal, cardiology consult pending. Patient to be discharged back to acute rehab upon evaluation by Cardiology. SYNCOPAL EPISODE ELEVATED TROPONIN Prior imaging studies at [facility] negative, echo read pending chest pain free Troponin 0.128, trend enzymes and EKG no significant changes on EKG, repeat in AM concern for ACS consult CARDIOLOGY pending, Dr. Hughes trend another Troponin, likely secondary to demand ischemia ELEVATED TSH Eval FREE T3/T4 for hypothyroidism INCREASED LETHARGY/MILD AMS 2/2 hyponatremia? centrally acting agents? - resolved, this was likely secondary to hyponatremia and volume depletion. HOLD centrally acting agents, Seroquel, Sertraline, Ativan, will continue Topamax for focal seizures for now Possibly secondary to hyponatremia Repeat CT head NEG No focal neuro deficits on physical exam Mentation and orientation generally at baseline, however less alert HYPONATREMIA - resolved. was likely secondary to volume depletion. 2/2 SIADH SSRI? HOLD Sertraline Send Urine Lytes, Urine and Serum Osm mild hydration with NS @ 100 cc/hr THROMBOCYTOPENIA Platelet 88 yesterday, continues to be low check manual count change Heparin to lovenox monitor ACUTE CVA patient with left-sided weakness, left neglect, dysarthria - left sided weakness and neglect improving with therapy MRI at [facility]3] found acute or subacute brain infarction to posterior right MCA distribution Patient neurologist was Dr. Ewing following on topomax 75 mg po Q12 for seizure prevention continue aspirin 81 mg daily, Statin and BP control continue PT, OT, speech therapy. Physiatry consult appreciated safety precautions REPEAT CT OF HEAD POST STROKE DEPRESSION psych consulted started on seroquel, Zoloft WILL HOLD HYPERTENSION controlled With slightly elevated BP during PT. No need for dose adjustment continue diltiazem, losartan, hydralazine HISTORY RENAL MASS Brain masses currently on chemotherapy continue current therapy Chemo drug q 2 weeks next Dec 4. Family to order. FOCAL SEIZURES seizure free on Topomax . Increased dose to 75 mg po BID VITAMIN D DEFICIENCY pt initiated on Ergocalciferol and Calcium Carbonate per neuro VTE prophylaxis changed to lovenox for thrombocytopenia
--- NOTE | 2017-05-22 13:38 | CP.PCM.CON ---
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 Subsequently his neurological status improved and the patient was transferred to [facility] to be managed at acute rehabilitation facility. The patient had a syncopal episode and was evaluated in the emergency room and troponin levels done in the emergency room and subsequently 4 times at 6-7 hour intervals have consistently shown mildly elevated troponin levels without a typical spike which would occur in case of an acute myocardial infarction. The troponin levels have basically been flat though mildly elevated. The patient has had a history of hypertension but no prior history of chest pain or myocardial infarction. Subsequent to detection of elevated troponin levels his clinical course on telemetry floor has been stable without any evidence of significant arrhythmia or congestive cardiac failure. On physical examination this was an elderly gentleman quite alert and awake though unable to express himself well. He seemed to be aware of his surroundings. He was breathing comfortably at 14-16 breaths per minute and had a heart rate of 70 bpm and regular. His blood pressure was 160/70 mmHg. His jugular venous pressure was not elevated and there was no edema over his lower extremities. His pedal pulses were feeble but distinctly present. There were no carotid bruits. The apex was in the 5th space the first and second heart sounds were normal. There was no murmur or gallop. There were no rales. His abdomen was soft. Liver and spleen were not palpable. His extremities were warm and his nailbeds were pink. His electrocardiogram in the emergency room showed sinus rhythm with no Q waves or ischemic ST-T abnormalities. Subsequent electrocardiograms have not shown any evolving Q waves or ST-T changes of myocardial ischemia. His echocardiographic images were extremely poor in quality and individual left ventricular segmental wall motion could not be commented upon. But his overall left ventricular systolic function appeared preserved. His lab data as mentioned earlier has shown a mild but flat ST segment elevation since his admission from the emergency room. A typical pattern of troponin release with an acute myocardial infarction is not apparent. The rest of his lab data was noted. Impression: Doubt acute myocardial infarction because of absence of clinical circumstances indicative of myocardial ischemia. Pattern of troponin elevation also does not indicate acute myocardial injury. Seizure following intervention for brain malignancy. Patient is stable from cardiovascular point of view and no immediate intervention need be undertaken. Past Patient History - Past Medical History & Family History Past Medical History?: Yes - Past Social History Smoking Status: Never Smoked - CARDIAC Hx Cardiac Disorders: Yes - PULMONARY Hx Respiratory Disorders: No - NEUROLOGICAL Hx Neurological Disorder: Yes - HEENT Hx HEENT Problems: No - RENAL Hx Chronic Kidney Disease: Yes ([place] Kidney) - ENDOCRINE/METABOLIC Hx Endocrine Disorders: Yes - HEMATOLOGICAL/ONCOLOGICAL Hx Blood Disorders: No - INTEGUMENTARY Hx Dermatological Problems: No - MUSCULOSKELETAL/RHEUMATOLOGICAL Hx Musculoskeletal Disorders: No - GASTROINTESTINAL Hx Gastrointestinal Disorders: No - GENITOURINARY/GYNECOLOGICAL Hx Genitourinary Disorders: No - PSYCHIATRIC Hx Substance Use: No - SURGICAL HISTORY Hx Surgeries: Yes Other/Comment: right nephroectomy, BRAIN TUMOR REMOVAL - ANESTHESIA Hx Anesthesia: Yes Hx Anesthesia Reactions: No Meds Allergies/Adverse Reactions: Allergies Allergy/AdvReac Type Severity Reaction Status Date / Time No Known Allergies Allergy Verified 05/02/17 10:52 - Medications Medications: Current Medications Aspirin (Ecotrin) 81 mg PO DAILY [facility] Last Admin: 05/22/17 09:19 Dose: 81 mg Atorvastatin Calcium (Lipitor) 20 mg PO HS [facility] Last Admin: 05/21/17 21:00 Dose: 20 mg Calcium Carbonate (Oscal) 500 mg PO BIDWM [facility] Last Admin: 05/22/17 09:18 Dose: 500 mg Diltiazem HCl (Cardizem Cd) 240 mg PO DAILY [facility] Last Admin: 05/22/17 09:18 Dose: 240 mg Enoxaparin Sodium (Lovenox) 40 mg SC DAILY [facility] PRN Reason: Protocol Last Admin: 05/22/17 09:17 Dose: 40 mg Ergocalciferol (Drisdol 50,000 Intl Units Cap) 1 cap PO Q7D [facility] Famotidine (Pepcid) 20 mg PO BID [facility] Last Admin: 05/22/17 09:17 Dose: 20 mg Folic Acid (Folic Acid) 1 mg PO DAILY [facility] Last Admin: 05/22/17 09:18 Dose: 1 mg Home Med (Sunitinib Malate [Sutent]) 50 mg PO DAILY [facility] Hydralazine HCl (Apresoline) 50 mg PO Q8H [facility] Last Admin: 05/22/17 03:40 Dose: Not Given Lactulose (Enulose) 20 gm PO BID PRN PRN Reason: Constipation Losartan Potassium (Cozaar) 100 mg PO DAILY [facility] Last Admin: 05/22/17 09:19 Dose: 100 mg Polyethylene Glycol (Miralax) 17 gm PO DAILY PRN PRN Reason: Constipation Topiramate (Topamax) 75 mg PO BID [facility] Last Admin: 05/22/17 09:19 Dose: 75 mg Results - Vital Signs Recent Vital Signs: Last Vital Signs Temp 98.9 F 05/22/17 11:59 Pulse 67 05/22/17 11:59 Resp 18 05/22/17 11:59 BP 165/92 H 05/22/17 11:59 Pulse Ox 100 05/22/17 11:59 - Labs Result Diagrams: 05/22/17 06:30 05/22/17 06:30 Labs: Laboratory Results - last 24 hr 05/21/17 05/21/17 05/21/17 11:00 12:15 16:48 WBC RBC Hgb Hct MCV MCH MCHC RDW Plt Count Sodium Potassium Chloride Carbon Dioxide Anion Gap BUN Creatinine Est GFR ( Amer) Est GFR (Non-Af Amer) POC Glucose (mg/dL) 109 98 Random Glucose Calcium Troponin I Free T4 0.43 L 05/21/17 05/22/17 05/22/17 22:31 04:53 06:30 WBC 4.5 L RBC 4.32 L Hgb 13.7 Hct 39.9 MCV 92.4 MCH 31.6 H MCHC 34.2 RDW 19.3 H Plt Count 78 L Sodium Potassium Chloride Carbon Dioxide Anion Gap BUN Creatinine Est GFR ( Amer) Est GFR (Non-Af Amer) POC Glucose (mg/dL) 150 H 203 H Random Glucose Calcium Troponin I Free T4 05/22/17 06:30 WBC RBC Hgb Hct MCV MCH MCHC RDW Plt Count Sodium 135 Potassium 3.7 Chloride 102 Carbon Dioxide 22 Anion Gap 15 BUN 10 Creatinine 1.2 Est GFR ( Amer) > 60 Est GFR (Non-Af Amer) > 60 POC Glucose (mg/dL) Random Glucose 119 H Calcium 9.6 Troponin I 0.1330 H* Free T4
[2017-05-22 16:30] VITALS: RESP 20; O2SAT 99
--- NOTE | 2017-05-22 18:02 | CP.PCM.DIS ---
Provider - Provider Date of Admission: 05/20/17 17:28 Attending physician: Alisson Valladares DO Time Spent in preparation of Discharge (in minutes): 30 Diagnosis - Discharge Diagnosis (1) Syncope Status: Acute (2) Elevated troponin Status: Acute Hospital Course - Lab Results Lab Results: Most Recent Lab Values WBC 4.5 K/uL (4.8-10.8) L 05/22/17 06:30 RBC 4.32 Mil/uL (4.40-5.90) L 05/22/17 06:30 Hgb 13.7 g/dL (12.0-18.0) 05/22/17 06:30 Hct 39.9 % (35.0-51.0) 05/22/17 06:30 MCV 92.4 fl (80.0-94.0) 05/22/17 06:30 MCH 31.6 pg (27.0-31.0) H 05/22/17 06:30 MCHC 34.2 g/dL (33.0-37.0) 05/22/17 06:30 RDW 19.3 % (11.5-14.5) H 05/22/17 06:30 Plt Count 78 K/uL (130-400) L 05/22/17 06:30 MPV 8.4 fl (7.2-11.7) 05/21/17 06:00 Neut % (Auto) 25.8 % (50.0-75.0) L 05/21/17 06:00 Lymph % (Auto) 60.7 % (20.0-40.0) H 05/21/17 06:00 Jerome % (Auto) 10.6 % (0.0-10.0) H 05/21/17 06:00 Eos % (Auto) 2.4 % (0.0-4.0) 05/21/17 06:00 Baso % (Auto) 0.5 % (0.0-2.0) 05/21/17 06:00 Neut # 0.9 K/uL (1.8-7.0) L 05/21/17 06:00 Lymph # 2.0 K/uL (1.0-4.3) 05/21/17 06:00 Jerome # 0.3 K/uL (0.0-0.8) 05/21/17 06:00 Eos # 0.1 K/uL (0.0-0.7) 05/21/17 06:00 Baso # 0.0 K/uL (0.0-0.2) 05/21/17 06:00 Sodium 135 mmol/l (132-148) 05/22/17 06:30 Potassium 3.7 MMOL/L (3.6-5.0) 05/22/17 06:30 Chloride 102 mmol/L (98-107) 05/22/17 06:30 Carbon Dioxide 22 mmol/L (22-30) 05/22/17 06:30 Anion Gap 15 (10-20) 05/22/17 06:30 BUN 10 mg/dl (9-20) 05/22/17 06:30 Creatinine 1.2 mg/dl (0.8-1.5) 05/22/17 06:30 Est GFR ( Amer) > 60 05/22/17 06:30 Est GFR (Non-Af Amer) > 60 05/22/17 06:30 POC Glucose (mg/dL) 203 mg/dL (65-110) H 05/22/17 04:53 Random Glucose 119 mg/dL (75-110) H 05/22/17 06:30 Serum Osmolality 272 mosm/kg (272-300) 05/20/17 22:58 Calcium 9.6 mg/dL (8.4-10.2) 05/22/17 06:30 Troponin I 0.1330 ng/mL (0.00-0.120) H* 05/22/17 06:30 Free T4 0.43 ng/dL (0.78-2.19) L 05/21/17 12:15 TSH 3rd Generation 47.30 mIU/ML (0.46-4.68) H 05/21/17 06:30 Urine Osmolality 247 mosm/kg (300-1000) L 05/20/17 21:00 Ur Random Sodium 12 meq/L 05/20/17 21:00 Ur Random Potassium 14.2 mmol/L 05/20/17 21:00 - Hospital Course Hospital Course: 67-year-old male with past medical history of prior CVA, 2 brain masses currently treated with chemotherapy status post right posterior parietal craniotomy in August 2016, renal mass, hypertension, hyperlipidemia sent from [facility] after acute CVA. Patient initially presented with left-sided weakness, aphasia, and left lateral gaze. In the emergency room shortly after, patient was able to look straight ahead and speak with me mild dysarthria, slurred speech and had some left-sided weakness with left lateral gaze. Patient transferred to acute rehabilitation for further rehabilitation needs. Patient participated in physical therapy well, has been improving his L sided weakness and neglect. Patient was medically managed for acute CVA, post stoke depression, HTN, hx renal mass, focal seizures, vitamin D deficiency. 05/20/17 - [employer] was called for brief syncopal episode while patient was sitting in chair during rehab. He denies any chest pain or shortness of breath. Patient mentation is at baseline. Troponin was positive 0.1280, EKG had no significant changes. No active chest pain, dypsnea, malaise. Pt placed on observation on telemetry to rule out ACS, for repeat CT head eval for slightly increased lethargy. Neuro exam was baseline, no new focal deficits, mentation also at baseline. Pt also hyponatremic on [employer] labs. Likely secondary to dehydration. Patient significantly improved after hydration. Patient was [employer]'d last night for another episode of syncope while he was having a bowel movement. Bradycardic at the time 55 bpm. likely vasovagal, cardiology consult pending. Patient to be discharged back to acute rehab upon evaluation by Cardiology. Stable per cardiology. D/C to rehab. Dx: vasovagal syncope SYNCOPAL EPISODE ELEVATED TROPONIN Prior imaging studies at [facility] negative, echo read pending chest pain free Troponin 0.128, trend enzymes and EKG. Trended down, likely demand ischemia. No further cardio workupindicated. no significant changes on EKG, repeat in AM concern for ACS consult CARDIOLOGY appreciated and followed trend another Troponin, likely secondary to demand ischemia ELEVATED TSH Eval FREE T3/T4 for hypothyroidism INCREASED LETHARGY/MILD AMS 2/2 hyponatremia? centrally acting agents? - resolved, this was likely secondary to hyponatremia and volume depletion. HOLD centrally acting agents, Seroquel, Sertraline, Ativan, will continue Topamax for focal seizures for now Possibly secondary to hyponatremia Repeat CT head NEG No focal neuro deficits on physical exam Mentation and orientation generally at baseline, however less alert HYPONATREMIA - resolved. was likely secondary to volume depletion. 2/2 SIADH SSRI? HOLD Sertraline Send Urine Lytes, Urine and Serum Osm mild hydration with NS @ 100 cc/hr THROMBOCYTOPENIA Platelet 88 yesterday, continues to be low check manual count change Heparin to lovenox monitor ACUTE CVA patient with left-sided weakness, left neglect, dysarthria - left sided weakness and neglect improving with therapy MRI at [facility] found acute or subacute brain infarction to posterior right MCA distribution Patient neurologist was Dr. Ewing following on topomax 75 mg po Q12 for seizure prevention continue aspirin 81 mg daily, Statin and BP control continue PT, OT, speech therapy. Physiatry consult appreciated safety precautions REPEAT CT OF HEAD POST STROKE DEPRESSION psych consulted started on seroquel, Zoloft WILL HOLD HYPERTENSION controlled With slightly elevated BP during PT. No need for dose adjustment continue diltiazem, losartan, hydralazine HISTORY RENAL MASS Brain masses currently on chemotherapy continue current therapy Chemo drug q 2 weeks next May 30. Family to order. FOCAL SEIZURES seizure free on Topomax . Increased dose to 75 mg po BID VITAMIN D DEFICIENCY pt initiated on Ergocalciferol and Calcium Carbonate per neuro VTE prophylaxis changed to lovenox for thrombocytopenia Discharge Exam - Head Exam Head Exam: ATRAUMATIC, NORMOCEPHALIC - Eye Exam Eye Exam: EOMI, Normal appearance, PERRL Pupil Exam: NORMAL ACCOMODATION - ENT Exam ENT Exam: Mucous Membranes Moist, Normal Oropharynx - Respiratory Exam Respiratory Exam: Clear to PA & Lateral, NORMAL BREATHING PATTERN - Cardiovascular Exam Cardiovascular Exam: RRR, +S1, +S2 - GI/Abdominal Exam GI & Abdominal Exam: Normal Bowel Sounds, Soft. absent: Mass, Tenderness - Extremities Exam Extremities exam: normal capillary refill, pedal pulses present - Back Exam Back exam: absent: CVA tenderness (L), CVA tenderness (R) - Neurological Exam Neurological exam: Alert, Reflexes Normal - Psychiatric Exam Psychiatric exam: Normal Affect, Normal Mood - Skin Skin Exam: Dry, Warm Discharge Plan - Follow Up Plan Condition: FAIR Disposition: REHAB FACILITY/REHAB UNIT
[2017-05-22 19:59] VITALS: BP 128/70; TEMP 98
[2017-05-22 20:25] VITALS: PULSE 61
[2017-05-23 12:31] LABS: FT3 2.74 pg/mL (2.77-5.27)
[2017-05-30] MEDS ORDERED: SUNITINIB MALATE PO SCH (09:00)
== END 2017-05-22 23:10 | DRG 312 ==
LOC: H.ER 17:18 → OBSVTOIN 17:28 → H.ERHOLD 17:28 → H.TEL 05-21 00:22
PROVIDERS: ADMIT Student in an Organized Health Care Education/Training Program; ATTEND Student in an Organized Health Care Education/Training Program
DX: R55 Syncope and collapse (principal); E11.22 Type 2 diabetes mellitus with diabetic chronic kidney disease; D69.6 Thrombocytopenia, unspecified; E87.1 Hypo-osmolality and hyponatremia; I69.359 Hemiplegia and hemiparesis following cerebral infarction affecting unspecified side; E86.0 Dehydration; Z85.841 Personal history of malignant neoplasm of brain; E03.9 Hypothyroidism, unspecified; E55.9 Vitamin D deficiency, unspecified; E78.5 Hyperlipidemia, unspecified; Z92.21 Personal history of antineoplastic chemotherapy; E86.1 Hypovolemia; F32.9 Major depressive disorder, single episode, unspecified; I12.9 Hypertensive chronic kidney disease with stage 1 through stage 4 chronic kidney disease, or unspecified chronic kidney disease; I69.320 Aphasia following cerebral infarction; N18.9 Chronic kidney disease, unspecified; Z85.528 Personal history of other malignant neoplasm of kidney; I69.322 Dysarthria following cerebral infarction; R56.9 Unspecified convulsions; Z79.82 Long term (current) use of aspirin; Z79.899 Other long term (current) drug therapy; E86.9 Volume depletion, unspecified